=== PATIENT | male | born 1955 | race Caucasian/White ===

== ENCOUNTER 2022-04-06 11:59 | Outpatient (CLI) | payer MEDICARE, OTHER, SELFPAY ==
[2022-04-06 16:46] LABS: TSH With Reflex to FT4* 0.905 uIU/mL (0.270-4.200)
[2022-04-06 17:06] LABS: Vitamin B12* 307 pg/mL (243-894)
== END 2022-04-06 12:00 | disposition home or self-care (01) ==
PROVIDERS: PCP Family Medicine; Visit Provider Physician Assistant Medical
DX: E11.9 Type 2 diabetes mellitus without complications (principal); I10 Essential (primary) hypertension; R53.83 Other fatigue
CPT/HCPCS: 82607; 84443

== ENCOUNTER 2022-10-14 11:33 | Outpatient (CLI) | payer MEDICARE, SELFPAY | END 2022-10-14 11:34 | disposition home or self-care (01) | PROVIDERS: PCP Physician Assistant Medical; Visit Provider Internal Medicine | DX: Z86.010 Personal history of colon polyps (principal); K63.5 Polyp of colon | CPT/HCPCS: 45380; 88305; J2250; J3010 ==

== ENCOUNTER 2022-10-27 13:46 | Outpatient (CLI) | payer MEDICARE, SELFPAY | END 2022-10-27 13:47 | disposition home or self-care (01) | PROVIDERS: PCP Physician Assistant Medical; Visit Provider Physician Assistant Medical | DX: I10 Essential (primary) hypertension (principal); E78.5 Hyperlipidemia, unspecified; E11.9 Type 2 diabetes mellitus without complications; N20.0 Calculus of kidney; R97.20 Elevated prostate specific antigen [PSA] | CPT/HCPCS: 82043; 82570; 82607; 87086 ==

== ENCOUNTER 2023-01-25 16:13 | Outpatient (CLI) | payer MEDICARE, SELFPAY | END 2023-01-25 16:14 | disposition home or self-care (01) | LOC: LKVREF 16:13 | PROVIDERS: PCP Physician Assistant Medical; Visit Provider Physician Assistant Medical | DX: E11.9 Type 2 diabetes mellitus without complications (principal); I10 Essential (primary) hypertension; Z79.899 Other long term (current) drug therapy | CPT/HCPCS: 82306 ==

== ENCOUNTER 2023-03-01 11:56 | Outpatient (CLI) | payer MEDICARE, SELFPAY | END 2023-03-01 11:57 | disposition home or self-care (01) | PROVIDERS: PCP Physician Assistant Medical; Visit Provider Physician Assistant Medical | DX: E78.5 Hyperlipidemia, unspecified (principal); I10 Essential (primary) hypertension; Z12.5 Encounter for screening for malignant neoplasm of prostate | CPT/HCPCS: 80061; 84153 ==

== ENCOUNTER 2023-03-07 12:54 | Outpatient (CLI) | payer MEDICARE, SELFPAY ==
--- NOTE | 2023-03-07 13:00 | CRLHL7_ITS ---
For Patients: As a result of the Century Cures Act, medical imaging exams and procedure reports are released immediately into your electronic medical record. You may view this report before your referring provider. If you have questions, please contact your health care provider. INDICATION: History of smoking TECHNIQUE: Ultrasound aorta with color Doppler analysis. COMPARISON: None FINDINGS: The proximal abdominal aorta measures 2.2 centimeter x 2.6 centimeter, mid aorta measures 1.9 centimeter x 2.0 centimeter, distal aorta measures 1.5 centimeter x 1.8 centimeter, right common iliac artery measures 1.1 centimeter x 1.6 centimeter and the left common iliac artery measures 1.1 centimeter x 1.4 centimeter. There are no periaortic abnormalities evident. IMPRESSION: The proximal abdominal aorta measures up to 2.6 centimeters. Five year follow up recommended. Dictated by Abel Sampson MD @ 03/08/2023 2:22:57 PM (Electronically Signed)
== END 2023-03-07 12:55 | disposition home or self-care (01) ==
LOC: US 12:56
PROVIDERS: PCP Physician Assistant Medical; Visit Provider Physician Assistant Medical
DX: Z87.891 Personal history of nicotine dependence (principal)
CPT/HCPCS: 76706

== ENCOUNTER 2023-04-26 15:03 | Outpatient (CLI) | payer MEDICARE, SELFPAY | END 2023-04-26 15:04 | disposition home or self-care (01) | LOC: LKVREF 15:13 | PROVIDERS: PCP Physician Assistant Medical; Visit Provider Physician Assistant Medical | DX: E11.9 Type 2 diabetes mellitus without complications (principal); E78.5 Hyperlipidemia, unspecified; M10.9 Gout, unspecified | CPT/HCPCS: 83880 ==

== ENCOUNTER 2023-04-28 13:40 | Outpatient (CLI) | payer MEDICARE, SELFPAY ==
--- NOTE | 2023-04-28 14:00 | CRLHL7_ITS ---
For Patients: As a result of the Century Cures Act, medical imaging exams and procedure reports are released immediately into your electronic medical record. You may view this report before your referring provider. If you have questions, please contact your health care provider. INDICATION: Pain and swelling COMPARISON: None. TECHNIQUE: A compression venous ultrasound exam was performed of the left lower extremity using schafer-scale imaging, color Doppler and spectral Doppler analysis. FINDINGS: Sonographic imaging of the left lower extremity demonstrates normal compressibility and color Doppler venous blood flow within the common femoral vein, deep femoral vein, and the proximal greater saphenous vein. Within the thigh, the femoral vein is patent and compressible. At a lower level, the popliteal and posterior tibial veins also show normal compressibility and color Doppler venous blood flow. Limited imaging of the contralateral groin demonstrates a normal spectral waveform and color Doppler venous blood flow within the right common femoral vein. IMPRESSION: Normal venous ultrasound exam. No evidence of deep vein thrombosis within the left lower extremity. Dictated by Abel Rees MD @ 04/28/2023 2:39:08 PM (Electronically Signed)
== END 2023-04-28 13:41 | disposition home or self-care (01) ==
LOC: US 13:41
PROVIDERS: PCP Physician Assistant Medical; Visit Provider Physician Assistant Medical
DX: M79.89 Other specified soft tissue disorders (principal)
CPT/HCPCS: 93970

== ENCOUNTER 2024-01-24 12:11 | Outpatient (CLI) | payer MEDICARE, SELFPAY ==
--- OUTSIDE RECORDS SUMMARY | 2024-01-25 07:50 | XMS_ITS | Clinical Summary ---
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 For routine questions regarding patient records, call [phone] during business hours, M-F 8:00 AM - 5:00 PM Central Time. Record requests for emergency care only can be directed to [phone] at any time.[facility] Allergies Active Allergy Reactions Criticality Noted Date Comments Piperacillin-Tazobactam Hives (Reselect Reaction),Rash 03/16/2017 Medications Medication Sig Dispensed Refills Start Date End Date Status amLODIPine-olmesar manzano (DIVINE) 5-20 mg per tablet Take 1 tablet by mouth daily. 04/08/2023 Active metFORMIN (GLUCOPHAGE) 1,000 mg tablet Take 1,000 mg by mouth 2 (two) times a day with meals. 04/08/2023 Active atorvastatin (LIPITOR) 20 mg tablet Take 20 mg by mouth at bedtime. 03/16/2017 Active metoprolol tartrate (LOPRESSOR) 100 mg tablet Take 100 mg by mouth 2 (two) times a day. 04/12/2023 Active montelukast (SINGULAIR) 10 mg tablet Take 10 mg by mouth at bedtime. 04/08/2023 Active multivitamin tablet Take 1 tablet by mouth every morning. 03/16/2017 Active cetirizine (ZyrTEC) 10 mg tablet Take 10 mg by mouth daily. Active LANCETS MISC Use to test blood sugar 1 times daily or as directed. 03/21/2017 Active blood sugar diagnostic strips (Blood Glucose Test Strips) Use to test blood sugars 1 times daily or as directed 03/21/2017 Active UNABLE TO FIND Use to test blood sugar one times daily or as directed. 03/21/[address] tablet Take 1 tablet (81 mg total) by mouth daily. May resume on MondayNovember 16 12/05/2023 Active acetaminophen (TYLENOL) 500 mg tablet Take 2 tablets (1,000 mg total) by mouth every 6 (six) hours. 80 tablet 1 12/05/2023 Active polyethylene glycol (MIRALAX) 17 gram/dose oral powder Take 17 g by mouth daily. Dissolve each 17 g dose in 240 mL (8 ounces) of beverage. To prevent constipation while on opioids and bladder spasm medications 510 g 12/05/2023 Active Additional Information Patient not taking.Reported on 12/12/2023 sennosides-docusat e sodium (Senna with Docusate Sodium) 8.6-50 mg per tablet Take 1 tablet by mouth 2 (two) times a day. To prevent constipation, while on opioids and bladder spasm medications 30 tablet 1 12/05/2023 Active traMADoL (ULTRAM) 50 mg tabletIndications: Acute Pain Take 1 tablet (50 mg total) by mouth every 6 (six) hours as needed for severe pain or score 7-10 of 10 (for pain not relieved by acetaminophen) 10 tablet 12/05/2023 Active Additional Information Patient not taking.Reported on 12/12/2023 bacitracin 500 unit/gram ointment Apply 1 Application topically 2 (two) times a day. Apply to the head of the penis while catheter is in place. 30 g 12/05/2023 Active cefdinir (OMNICEF) 300 mg capsuleIndications :Primary Malignant Neoplasm Of Prostate (HCC) Take 1 capsule (300 mg total) by mouth 2 (two) times a day before breakfast and dinner. Take 1 capsule (300 mg total) by mouth 2 (two) times a day before breakfast and dinner for 1 day on the day of catheter removal (one capsule in the am prior to removal and one tablet in the pm after removal). 2 capsule 12/12/2023 Active tadalafiL (Cialis) 5 mg tablet Take 1 tablet (5 mg total) by mouth daily. Can take up to 20mg in 24 hrs. Take 1 hour before sexual activity. 90 tablet 11 12/21/2023 Active Active Problems Problem Noted Date Diagnosed Date Personal History Of Infectio us And Parasitic Disease (COVID-19) 11/30/2023 Smoking Tobacco Use Personal History 11/30/2023 Overweight Body Mass Index 25-29.9 Adult 024 Hernia Inguinal Bilateral 11/30/2023 Primary Malignant Neoplasm Of Prostate Cancer Staging:Clinical stage from 09/19/2023:Stage IIB(cT1c, cN0, cM0, PSA: 5.9, Grade Group: 2) - Signed by Mohsen Bright APRN, C.N.P., D.N.P. 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 12/21/2023 Orders Only Department of Urology in [place], [place] [address] [place] [phone] Lena Rojas, R.N. 12/19/2023 8:00 AM CDT Procedure visit Department of Urology in [place], [place] [address] [place] [phone] Fidel Schmid M.D. Isabel Flanagan, R.N. Primary Malignant Neoplasm Of Prostate (HCC) 12/15/2023 Clinical Communication Department of Urology in [place], [place] [address] [place] [address] Bobby Tomlinson M.D. 12/12/2023 8:00 AM CDT Procedure visit Department of Urology in [place], [place] [address] [place] [phone] Heber Sebastian M.D. Gehling, Kelly C, RBlanca Primary Malignant Neoplasm Of Prostate (HCC) 12/07/2023 Documentation Department of Urology in [place], [place] [address] [place] [phone] Bobby Tomlinson M.D. 12/04/2023 1:28 PM CDT Anesthesia Event [facility] [address] [place] [address] Rayo Davis M.D. Wetzel, David R, M.D. 12/04/2023 1:17 PM CDT - 12/04/2023 6:43 PM CDT Surgery [facility] OR [address] [place] [address] Bobby Tomlinson M.D. ROBOTIC-ASSISTED RADICAL PROSTATECTOMY. 12/04/2023 10:06 AM CDT - 12/05/2023 11:53 AM CDT Hospital [facility], [facility], Fifth Floor [address] [place] [address] Bobby Tomlinson M.D. Primary Malignant Neoplasm Of Prostate (HCC) (Primary Dx) Discharge Disposition: Home or Self Care 11/30/2023 1:00 PM CDT Office Visit Department of Urology in [place], [place] [address] [place] [phone] Bobby Tomlinson M.D. Primary Malignant Neoplasm Of Prostate (HCC) (Primary Dx) 11/30/2023 9:00 AM CDT Education Department of Patient Education in [place], [place] [address] [place] [phone] Bobby Tomlinson M.D. Johnson, Kinsley E RBlanca Primary Malignant Neoplasm Of Prostate (HCC) 11/30/2023 7:30 AM CDT Comprehensive Visit Preoperative Evaluation Center in [place], [place] [address] [place] [phone] Bobby Tomlinson M.D. Pauly, Jacob J, APRN, C.N.P., M.S. Preanesthetic Medical Exam (Primary Dx); Primary Malignant Neoplasm Of Prostate (HCC); Hypertension Essential Primary; Hyperlipidemia; Sleep Apnea; Chronic Obstructive Pulmonary Disease (HCC); Smoking Tobacco Use Personal History; Personal History Of Infectious And Parasitic Disease (COVID-19); Diabetes Mellitus Type 2 With Diabetic Neuropathy (HCC); Restless Leg Syndrome; Overweight Body Mass Index 25-29.9 Adult; Hernia Inguinal Bilateral 11/30/2023 6:36 AM CDT - 11/30/2023 11:59 PM CDT Hospital Encounter Department of Laboratory Medicine and Pathology, [facility] in [place] [phone] Bobby Tomlinson M.D. Primary Malignant Neoplasm Of Prostate (HCC) Discharge Disposition: Home or Self Care 11/28/2023 1:15 PM CDT Clinical Communication Virtual Review in [place], [place] [address] [place] [phone] Pre-visit Intake 11/13/2023 Orders Only Department of Urology in [place], [place] [address] [place] [phone] Desean Perales MPAS, P.A.-C. 11/13/2023 Clinical Communication Department of Urology in [address] [phone] Desean Perales MPAS, P.A.-C. Med Question 11/06/2023 Orders Only Preoperative Evaluation Center in [place], [place] [address] [place] [phone] Milka Badillo APRN, C.N.P., M.S.N. Preanesthetic Medical Exam (Primary Dx) 11/03/2023 Clinical Communication Department of Urology in [place], [place] [address] [place] [phone] Bobby Tomlinson M.D. 10/31/2023 2:35 PM CDT - 10/31/2023 3:46 PM CDT Hospital Encounter Department of Radiation Oncology in [place], [place] [address] [place] [address] Desean Perales, [facility], P.A.-C. Ozzy Manzano M.D. Primary Malignant Neoplasm Of Prostate (HCC) (Primary Dx) 10/31/2023 1:30 PM CDT Comprehensive Visit Department of Urology in [place], [place] [address] [place] [address] Bobby Tomlinson M.D. Primary Malignant Neoplasm Of Prostate (HCC) from Last 3 Months Social History Tobacco Use Types Packs/Day Years Used Date Smoking Tobacco: Former Cigarettes 2 30 Passive Smoke Exposure: Past Smokeless Tobacco: Never Tobacco Cessation:Counseling Given: Not Answered Passive Exposure Comments:parents did smoke when he was growing up. Alcohol Use Standard Drinks/Week Comments Not Currently 0 (1 standard drink = 0.6 oz pur e alcohol) [facility] [employer] Answer Date Recorded In the past [address] [facility] [employer], gas, oil, or water [employer] threatened to shut off services in your home? No 12/04/2023 Humiliation, Afraid, Rape, and Kick questionnair e Answer Date Recorded Within the last year, have y ou been afraid of your partner or ex-partner? No 12/04/2023 Within the last year, have y ou been humiliated or emotionally abused in other ways by your partner or ex-partner? No Within the last year, have y ou been kicked, hit, slapped, or otherwise physically hurt by your partner or ex-partner? No 12/04/2023 Within the last year, have y ou been raped or forced to have any kind of sexual activity by your partner or ex-partner? No 12/04/2023 Hunger Vital Sign Answer Date Recorded Within the past 12 months, y ou worried that your food would run out before you got the money to buy more. Never true 12/04/19 24 Within the past 12 months, t he food you bought just didn't last and you didn't have money to get more. Never true 12/04/2023 PRAPARE - Transportation Answer Date Re corded In the past 12 months, has l ack of transportation kept you from medical appointments or from getting medications? No 11/15 In the past 12 months, has l ack of transportation kept you from meetings, work, or from getting things needed for daily living? No 12/04/2023 Nutrition Answer Date Recorded Nutrition: EVOO Fat Source 13 04/18 Nutrition: Servings of Fruits/Vegetables per Day Not on file 04/18/2020 Dental Answer Date Recorded Dental: Regular Dentist Unknown 06/29/20 23 Housing Stability Answer Date Recorded What is your living situation today? I have a [facility] place to live 12/04/2023 Sex and Gender Information Value Date Recorded Sex Assigned at Not on file Gender Identity Not on file Sexual Orientation Not on file Last Filed Vital Signs Vital Sign Reading Time Taken Comments Blood Pressure 99/67 12/05/2023 11:00 AM CDT Pulse 66 12/05/2023 11:00 AM CDT Temperature 36.5 ??C (97.7 ??F) 12/05/2023 11:00 AM C DT Respiratory Rate 16 12/05/2023 11:00 AM CDT Oxygen Saturation 92% 12/05/2023 11:00 AM CDT Inhaled Oxygen Concentration - - Weight 96 kg (211 lb 10.3 oz) 12/04/2023 10:30 A M CDT Height 177.5 cm (5' 9.88) 12/04/2023 10:30 AM C DT Body Mass Index 30.47 12/04/2023 10:30 AM CDT Plan of Treatment Health Maintenance Due Date Last Done Comments Diabetic Office Visit with F oot Exam 1955 Dilated Eye Exam 1955 Hepatitis C Screening 1955 Urine Albumin 1955 Zoster Vaccines (1 of 2) 01/13/2006 Hepatitis B Vaccines (1 of 3 - Risk 3-dose series) 2016 COVID-19 Vaccine (4 - 2022-2 4 season) 2023 05/26/2022, 10/30/2020, 10/02/2020 Pneumococcal vaccine (65+ ye ars) (3 of 3 - PPSV23 or PCV20) 05/28/2023 04/16/2021, 05/28/2018, 05/25/2016, Additional history exists Depression Screening (Annual PHQ-2) 07/17/2023 Influenza Vaccine (#1) 2024 , 04/26/2023, 04/24/2022, Additional history exists Hemoglobin A1C 06/01/2024 11/30/2023, 03/16/2017 Creatinine Level (Kidney Fun ction Test) 11/29/2024 11/30/2023, 07/04/2023, 09/07/2015, Additional history exists Office Visit for Blood Press ure Check / Re-check 11/29/2024 11/30/2023 Potassium Level 11/29/2024 11/30/2023, 06/16, 09/07/2015, Additional history exists Sodium Level 11/29/2024 11/30/2023, 06/16, 09/07/2015, Additional history exists DTaP,Tdap,and Td Vaccines (4 - Td or Tdap) 09/14/2025 09/15/2015, 05/06/2011, 04/26/2010 Lipid (Cholesterol) Screening 07/04/2028 07/04/2023 Abdominal Aortic Aneurysm (A AA) Screen Completed 04/14/2015 Fall Risk Screen (Annual) Completed 12/04/2023 Medical Devices Implanted Type Area Topographical Engineer Device Identifier Shelf Expiration Date Model / Serial / Lot Yolanda Hill Lg - [id number] Implanted:Qty: 1 on 12/04/2023 by Bobby Tomlinson M.D. at [facility] Hardware e.g. pins/screws /rods Teleflex Skydeck [id number] 04/25/2028 [id number] / / [id number] Yolanda Hill Md - [id number] Implanted:Qty: 1 on 12/04/2023 by Bobby Tomlinson M.D. at [facility] Hardware e.g. pins/screws /rods Teleflex Skydeck 07/25/2028 [id number] / / [id number] Yolanda Hill Md - [id number] Implanted:Qty: 1 on 12/04/2023 by Bobby Tomlinson M.D. at [facility] Hardware e.g. pins/screws /rods [employer] [id number] / / [id number] Clp Hmol Plmr Lg - [id number] Implanted:Qty: 1 on 12/04/2023 by Bobby Tomlinson M.D. at [facility] Hardware e.g. pins/screws /rods [employer] [id number] 06/15/2028 [id number] / / [id number] Clp Hmol Plmr Md - [id number] Implanted:Qty: 1 on 12/04/2023 by Bobby Tomlinson M.D. at [facility] Hardware e.g. pins/screws /rods [employer] [id number] / / [id number] Clp Hmol Plmr Md - [id number] Implanted:Qty: 1 on 12/04/2023 by Bobby Tomlinson M.D. at [facility] Hardware e.g. pins/screws /rods [employer] [id number] / / [id number] Clp Hmol Plmr Lg - [id number] Implanted:Qty: 1 on 12/04/2023 by Bobby Tomlinson M.D. at [facility] Hardware e.g. pins/screws /rods [employer] [id number] 06/15/2028 [id number] / / [id number] Conversions - Default Historical Implant Device Implanted:05/12 (Quantity not on file) Ocular Lens Left: Eye Description:Body Location - Eye L. Device Status Text - OculrLens. Conversions - Default Historical Implant Device Implanted:05/12 (Quantity not on file) Ocular Lens Right: Eye Description:Body Location - Eye R. Device Status Text - OculrLens. Stent Inlay 7fr X 26cm - [id number] Implanted:Qty: 1 on 05/12/2015 Ureteral Stent C.R.Bard Description:Device Manufactu [facility] Patient Care Division. Device Status Text - [id number]. Stent Inlay 7fr X 26cm - Reece [id number] Implanted:Qty: 1 on 05/28/2015 Ureteral Stent C.R.Bard Description:Device Manufactu [facility] Patient Care Division. Device Status Text - [id number]. Stent Inlay 8fr X 30cm - Reece [id number] Implanted:Qty: 1 on 06/03/2016 Ureteral Stent C.R.Bard Description:Device Manufactu rer - [facility] Patient Care Division. Device Status Text - [id number]. Explanted Type Area Topographical Engineer Device Identifier Shelf Expiration Date Model / Serial / Lot Conversions - Default Historical Implant Device - Reece [id number] Explanted:2016 (Quantity not on file) Ureteral Stent Description:Device Status Te xt - [id number]. Conversions - Default Historical Implant Device - Reece [id number] Explanted:2016 (Quantity not on file) Ureteral Stent Description:Device Status Juan Alberto garcia - [id number]. Procedures Procedure Name Priority Date/Time Associated Diagnosis Comments GLUCOSE POCT, B Routine 12/05/2023 7:15 AM CDT GLUCOSE POCT, B Routine 12/04/2023 7:53 PM CDT ADULT OXYGEN THERAPY Routine 12/04/2023 7:39 PM CDT ADULT OXYGEN THERAPY Routine 12/04/2023 7:39 PM CDT POST-OP GLYCEMIC MANAGEMENT ORDER SET TRIGGER Routine 12/04/2023 7:39 PM CDT REMOTE OXIMETRY MONITORING CONT. Routine 12/04/2023 7:39 PM CDT REMOTE OXIMETRY MONITORING CONT. Routine 12/04/2023 7:39 PM CDT REMOTE OXIMETRY MONITORING CONT. Routine 12/04/2023 7:39 PM CDT GLUCOSE POCT, B Routine 12/04/2023 7:00 PM CDT GLUCOSE POCT, B Routine 12/04/2023 5:00 PM CDT SURGICAL PATHOLOGY, [facility] Routine 12/04/2023 3:55 PM CDT Primary Malignant Neoplasm Of Prostate (HCC) GLUCOSE POCT, B Routine 12/04/2023 2:56 PM CDT LDA ANE ENDOTRACHEAL AIRWAY Routine 12/04/2023 1:38 PM CDT ROBOTIC-ASSISTED RADICAL PROSTATECTOMY 12/04/2023 12:58 PM CDT Primary Malignant Neoplasm Of Prostate (HCC) GLUCOSE POCT, B Routine 12/04/2023 12:38 PM CDT GLUCOSE POCT, B Routine 12/04/2023 10:34 AM CDT ECG Routine 11/30/2023 11:37 AM CDT Preanesthetic Medical Exam HEMOGLOBIN A1C, B Routine 11/30/2023 6:5 1 AM CDT Primary Malignant Neoplasm Of Prostate (HCC) PROTHROMBIN TIME (PT), P Routine 11/30/2023 6:51 AM CDT Primary Malignant Neoplasm Of Prostate (HCC) CBC WITHOUT DIFFERENTIAL, B Routine 11/30/2023 6:51 AM CDT Primary Malignant Neoplasm Of Prostate (HCC) BASIC METABOLIC PANEL, S/P Routine 11/30/2023 6:51 AM CDT Primary Malignant Neoplasm Of Prostate (HCC) ACTIVATED PARTIAL THROMBOPLASTIN TIME (APTT), P Routine 11/30/2023 6:51 AM CDT Primary Malignant Neoplasm Of Prostate (HCC) EXTI LIPID PANEL W REFLEX MEASURED LDL Routine 07/04/2023 1:45 PM HYDRAULIC MINER BLASTING CT ABDOMEN PELVIS WITHOUT IV CONTRAST RAD - Routine (most inpatients and all outpatients) 04/14/2015 4:38 PM CDT from Last 3 Months or Most Recently Relevant to Health Maintenance Results * (ABNORMAL) Glucose, POCT (12/05/2023 7:15 AM CDT) Only the most recent of7 resultswithin the time period is included. Glucose, POCT, B 173(H) 70 - 140 mg/dL 12/05/2023 7:24 AM CDT PCDE Site Capillary 12/05/2023 7:24 AM CDT PCDE Blood 12/05/2023 7:15 AM CDT 12/05/2023 7:25 AM CDT Unknown Provider LAB POCT ORDERABLES- MANUAL POC [employer] [facility] [address] [place] [address], [place] PCDE [facility] [place] POC [address] [place] [address] * Surgical Pathology, [facility] (12/04/2023 3:55 PM CDT) 12/07/2023 5:43 PM CDT [facility] Participated in the Interpretation Saul Dillon M.D.-Pathology Resident 12/07/2023 5:43 PM CDT [facility] Report electronically signed by Ayush Karimi M.D. I verify that I have examined all relevant slides/materials for the specimen(s) and rendered or confirmed the diagnosis. 12/07/2023 5:43 PM CDT [facility] Gross Description A. ??Received fresh labeled periprostatic lymph nodes is a 3.7 x 2.5 x 1.7 cm aggregate of adipose tissue, lymphatic tissue not identified grossly. ??All submitted for permanent sections. ??Grossed by [place] B. ??Received fresh and placed in formalin labeled prostate is a 52.6 gram, 4.8 (S-I) x 3.6 (A-P) x 4.5 (R-L) cm radical prostatectomy, with nodular hypertrophy. The specimen is inked and the prostatic apex and bladder neck margins are submitted perpendicularly. ??Grossly, there is a 1.4 x 1.2 x 0.8 cm white mass involving the right mid, anterior prostate. ??Senior Water Resources Engineer tissue submitted for permanent sections. ??Grossed by [place]([facility] 12/07/2023 5:43 PM CDT [facility] Block Summary A Marilee-prostatic lymph nodes A1 Fat 1 A2 Fat 2 A3 Fat 3 B Prostate B1 Right anterior apex margin B2 Right posterior apex margin B3 Right bladder neck margin- 1 B4 Right bladder neck margin- 2 B5 Right bladder neck margin- 3 B6 Left anterior apex margin B7 Left posterior apex margin B8 Left bladder neck margin- 1 B9 Left bladder neck margin- 2 B10 Left bladder neck margin- 3 B11 Right inferior posterior B12 Right mid posterior B13 Right mid anterior B14 Right superior posterior B15 Left inferior posterior B16 Left mid posterior B17 Left mid anterior B18 Left superior posterior B19 Right seminal vesicles- 1 B20 Right seminal vesicles- 2 B21 Right seminal vesicles- 3 B22 Right seminal vesicles- 4 B23 Right seminal vesicles- 5 B24 Right seminal vesicles- 6 B25 Right seminal vesicles- 7 B26 Left seminal vesicles- 1 B27 Left seminal vesicles- 2 B28 Left seminal vesicles- 3 B29 Left seminal vesicles- 4 B30 Left seminal vesicles- 5 B31 Left seminal vesicles- 6 12/07/2023 5:43 PM CDT [facility] Interpretation FINAL DIAGNOSIS A. ??Lymph nodes, periprostatic, dissection: ??Benign fibroadipose tissue. ??No lymphoid tissue identified. B. ??Prostate, radical prostatectomy: ??Prostatic adenocarcinoma (Davy score 3+4=7; Grade group 2) is identified forming a dominant 1.4 x 1.2 x 0.8 cm mass within the right anterior prostate. ??The tumor is confined to the prostrate without involvement of the extraprostatic soft tissues or seminal vesicles. ??All surgical margins are negative for tumor. ??See synoptic report. SYNOPTIC REPORT: Prostate Procedure: Radical prostatectomy Prostate Size: 52.6 gram, 4.8 (S-I) x 3.6 (A-P) x 4.5 (R-L) cm Histologic Type: Acinar adenocarcinoma Histologic Grade ?? Grade Group and Davy Score ?Grade Group ?Grade Group 2 (Davy Score 3+4=7) ?Minor Tertiary Pattern 5 (less than 5%): ?Not applicable ?Percentage of Pattern 4 in Davy score 7: Less than 10% ?? Intraductal Carcinoma (IDC): Not identified ?? Cribriform Glands: Not identified Treatment Effect: No known presurgical therapy Tumor Quantitation ?? Estimated Percentage of Prostate Involved by Tumor: 10-20% ?? Greatest Dimension of Dominant Nodule: 1.4 x 1.2 x 0.8 cm ?? Location of Dominant Nodule: Right anterior prostate Extraprostatic Extension: Not identified Urinary Bladder Neck Invasion: Not identified Seminal Vesicle Invasion: Not identified Lymphovascular Invasion: Not identified Margins: All margins negative for tumor Regional Lymph Nodes Status: Not applicable (no regional lymph nodes submitted or found) Distant Metastasis. ??Distant Site(s) Involved: Not applicable Pathologic Staging (AJCC, 8th edition) TNM Descriptors: m pT Category: pT2 pN Category: pN not assigned (no nodes submitted or found) pM Category: Not applicable - pM cannot be determined from the submitted specimens Additional Pathologic Findings: Nodular hyperplasia Best Tumor Block for Ancillary Testing: B13 The synoptic report incorporates information from all relevant surgical material and includes all required data elements of the current CAP Cancer Protocol. 12/07/2023 5:43 PM CDT [facility] Tissue (Lymph Node) 12/04/2023 3:55 PM CDT Tissue (Prostate) 12/04/2023 3:57 PM CDT Bobby Tomlinson M.D. LAB SURG PATH ORDERA BLES Performing Organization Address City/State/[facility] Co de Phone Number [facility] [address] [place] [address], [facility] [address] [place] [address] * LDA ANE ENDOTRACHEAL AIRWAY (12/04/2023 1:38 PM CDT) Narrative Rob Robertson APRN, CRNA - 12/04/2023 1:38 PM CDT Rob Robertson APRN, CRNA ? 12/04/2023 ??1:49 PM Airway Date/Time: 12/04/2023 1:38 PM Performed by: Rob Robertson APRN, CRNA Authorized by: Abel Wilkins M.D. ?? Patient location during procedure: OR / Procedure Area PROCEDURE DETAILS: Mask difficulty assessment: easy mask Final airway type: video laryngoscope Laryngeal Manipulation: no ?? Final best view of glottic structures - Cormack/Lehane Score: grade 2A ETT location: oral VL device: glide scope [place] scope blade size: 4 Tube size: 7.5 ETT distance at teeth/gum: 23 Oral tube type: standard ETT Cuffed: yes Leak Test Performed: no ?? Number of attempt to successful placement: 1 Airway confirmation: bilateral breath sounds, positive ETCO2 and bilateral chest rise Other previous techniques attempted: none PRE PROCEDURE DETAILS: Pre evaluation for airway management: procedure Urgency: elective Preop assessment of probable difficulty: questionable / suspicious difficult airway Preoxygenation: bag valve mask SEDATION / ANESTHESIA Anesthesia method: anesthesia POST PROCEDURE DETAILS: ? Procedure outcome: successful ?? Notable Events: no complications Abel Wilkins M.D. ANESTHESIA ORDERABLE S * ECG 12 Lead (11/30/2023 11:37 AM CDT) Ventricular Rate ECG/Min 71 BPM MUSE ID Interval 156 ms MUSE QRSD Interval 132 ms MUSE QT Interval 418 ms MUSE QTC Interval 454 ms MUSE P [place] 79 degrees MUSE R [place] -79 degrees MUSE T Wave [place] 29 degrees MUSE 11/30/2023 11:3 7 AM CDT 11/30/2023 11:44 AM CDT Impressions MUSE - 11/30/2023 11:44 AM CDT Normal sinus rhythm Right bundle branch block Left anterior fascicular block Bifascicular block When compared with ECG of 02-Jun-2016 08:00, Right bundle branch block is now present Reviewed by PAULINE Clancy Narrative Procedure Note Ryan Jesus M.D. - 11/30/2023 IMPRESSION: Normal sinus rhythm Right bundle branch block Left anterior fascicular block Bifascicular block When compared with ECG of 02-Jun-2016 08:00, Right bundle branch block is now present Reviewed by PAULINE Clancy Milka Badillo APRN, C.N.P., M.S.N. EC G ORDERABLES MUSE NA * APTT (Activated Partial Thromboplastin Time) (11/30/2023 6:51 AM CDT) Activated Partial Thrombopl Time, P 36 25 - 37 sec 11/30/2023 7:34 AM CDT DTL Blood (Blood, Venous) 11/30/2023 6:51 AM CDT 11/30/2023 7:15 AM CDT Bobby Tomlinson M.D. LAB BLOOD ADD-ON Performing Organization Address City/[facility] Co de Phone Number [facility] [address] [place] [address], [facility] [address] [place] [address] * Prothrombin Time (PT) (11/30/2023 6:51 AM CDT) Prothrombin Time, P 10.6 9.4 - 12.5 sec 11/30/2023 7:34 AM CDT DTL INR 1.0 0.9 - 1.1 11/30/2023 7:34 AM CDT DTL Comment: ----ADDITIONAL INFORMATION---- Standard intensity warfarin therapeutic range: 2.0 to 3.0 ?? High intensity warfarin therapeutic range: 2.5 to 3.5 Blood (Blood, Venous) 11/30/2023 6:51 AM CDT 11/30/2023 7:15 AM CDT Bobby Tomlinson M.D. LAB BLOOD ADD-ON Performing Organization Address City/[facility] Co de Phone Number [facility] [address] [place] [address], [facility] [address] [place] [address] * CBC without Differential (11/30/2023 6:51 AM CDT) Hemoglobin 14.5 13.2 - 16.6 g/dL 11/30/2023 7:30 AM CDT DTL Hematocrit 43.1 38.3 - 48.6 % 11/30/2023 7:30 AM CDT DTL Erythrocytes 4.58 4.35 - 5.65 x10(12)/L 11/30/2023 7:30 AM CDT DTL MCV 94.1 78.2 - 97.9 fL 11/30/2023 7:30 AM CDT DTL RBC Distrib Width 13.1 11.8 - 14.5 % 11/30/2023 7:30 AM CDT DTL Platelet Count 194 135 - 317 x10(9)/L 11/30/2023 7:30 AM CDT DTL Leukocytes 8.3 3.4 - 9.6 x10(9)/L 11/30/2023 7:30 AM CDT DTL Blood (Blood, Venous) 11/30/2023 6:51 AM CDT 11/30/2023 7:15 AM CDT Bobby Tomlinson M.D. LAB BLOOD ADD-ON Performing Organization Address City/[facility] Co de Phone Number [facility] [address] [place], [place] [phone] [place] [address] [place] [address] * (ABNORMAL) Hemoglobin A1c (11/30/2023 6:51 AM CDT) Hemoglobin A1c, B 7.6(H) 4.0 - 5.6 % 11/30/2023 7:44 AM CDT DTL Comment: Hemoglobin A1c values greater than or equal to 6.5 percent are diagnostic for diabetes mellitus. ??Diagnosis should be confirmed by repeat testing. ??In diabetic patients, HbA1c goals should be discussed with healthcare provider. Blood (Blood, Venous) 11/30/2023 6:51 AM CDT 11/30/2023 7:15 AM CDT Bobby Tomlinson M.D. LAB BLOOD ADD-ON [facility] [address] [place], [place] [phone] [place] [address] [place] [address] * (ABNORMAL) Basic Metabolic Panel (11/30/2023 6:51 AM CDT) Potassium, S 4.9 3.6 - 5.2 mmol/L 11/30/2023 7:49 AM CDT DTL Sodium, S 142 135 - 145 mmol/L 11/30/2023 7:49 AM CDT DTL Chloride, S 103 98 - 107 mmol/L 11/30/2023 7:49 AM CDT DTL Bicarbonate, S 29 22 - 29 mmol/L 11/30/2023 7:49 AM CDT DTL Anion Gap 10 7 - 15 11/30/2023 7:49 AM CDT DTL BUN (Blood Urea Nitrogen), S 16 8 - 24 mg/dL 11/30/2023 7:49 AM CDT DTL Creatinine 1.20 0.74 - 1.35 mg/dL 11/30/2023 7:49 AM CDT DTL Estimated GFR (eGFR) 66 >=60 mL/min/BSA 11/30/2023 7:49 AM CDT DTL Comment: Estimated GFR calculated using the 2020 CKD_EPI creatinine equation. Calcium, Total, S 9.7 8.8 - 10.2 mg/dL 11/30/2023 7:49 AM CDT DTL Glucose, S 153(H) 70 - 140 mg/dL 11/30/2023 7:49 AM CDT DTL Blood (Blood, Venous) 11/30/2023 6:51 AM CDT 11/30/2023 7:30 AM CDT Bobby Tomlinson M.D. LAB BLOOD ADD-ON [facility] [address] [place] [address], [facility] [address] [place] [address] from Last 3 Months or Most Recently Relevant to Health Maintenance Advance Directives For more information, please contact: [phone] * Full Code (Latest Code Status on File) Date Activated Date Inactivated Comments 12/04/2023 7:39 PM 12/05/2023 2:03 PM Question Answer Comments Full Code: Discussed * Full Code Date Activated Date Inactivated Comments 12/04/2023 10:21 AM 12/04/2023 7:39 PM Question Answer Comments Full Code: Discussed
--- OUTSIDE RECORDS SUMMARY | 2024-01-25 07:51 | XMS_ITS | Encounter Summary ---
Author Organization [facility] Address [address] [place] [phone] Care Team Providers Care Continuous Improvement Consultant Name Role Phone Unavailable Primary Care Provider Unavailabl e Reason for Visit * Outpatient (Routine) - Closed Specialty Diagnoses / Procedures Referred By Hector rivera Referred To Contact Anesthesiology Diagnoses Primary Malignant Neoplasm Of Prostate (HCC) Bobby Tomlinson M.D. [address] [place] [phone] [facility] Referral ID Status Reason Start Date Expiration Date Visits Re quested Visits Authorized [id number] Closed 11/06/2023 05/07/2025 1 1 Encounter Details Date Type Department Care Team (Latest Contact Info) Description 11/30/2023 7:30 AM CDT Comprehensive Visit Preoperative Evaluation Center in [place], [place] [address] [place] [phone] Bobby Tomlinson M.D. [address] [place] [address] [phone] Ryan Ashley, CADEN, C.N.P., M.S. [address] [place] [address] [phone] Preanesthetic Medical Exam (Primary Dx); Primary Malignant Neoplasm Of Prostate (HCC); Hypertension Essential Primary; Hyperlipidemia; Sleep Apnea; Chronic Obstructive Pulmonary Disease (HCC); Smoking Tobacco Use Personal History; Personal History Of Infectious And Parasitic Disease (COVID-19); Diabetes Mellitus Type 2 With Diabetic Neuropathy (HCC); Restless Leg Syndrome; Overweight Body Mass Index 25-29.9 Adult; Hernia Inguinal Bilateral Social History Tobacco Use Types Packs/Day Years Used Date Smoking Tobacco: Former Cigarettes 2 30 Passive Smoke Exposure: Past Smokeless Tobacco: Never Passive Exposure Comments:tony scott did smoke when he was growing up. Alcohol Use Standard Drinks/Week Comments Not Currently 0 (1 standard drink = 0.6 oz pur e alcohol) Nutrition Answer Date Recorded Nutrition: EVOO Fat Source 13 04/18 Nutrition: Servings of Fruits/Vegetables per Day Not on file 04/18/2020 Dental Answer Date Recorded Dental: Regular Dentist Unknown 06/29/20 Sex and Gender Information Value Date Recorded Sex Assigned at Not on file Gender Identity Not on file Sexual Orientation Not on file documented as of this encounter Last Filed Vital Signs Vital Sign Reading Time Taken Comments Blood Pressure 133/83 11/30/2023 7:23 AM CDT Pulse 71 11/30/2023 7:23 AM CDT Temperature 35.7 ??C (96.3 ??F) 11/30/2023 7:20 AM CD T Respiratory Rate - - Oxygen Saturation 97% 11/30/2023 7:23 AM CDT Inhaled Oxygen Concentration - - Weight 98.9 kg (218 lb 0.6 oz) 11/30/2023 7:20 A M CDT Height 183.5 cm (6' 0.24) 11/30/2023 7:20 AM CD T Body Mass Index 29.37 11/30/2023 7:20 AM CDT documented in this encounter H&P Notes * Ryan Ashley, MEDICAL DIRECTOR OCCUPATIONAL HEALTH, C.N.P., M.S. - 11/30/2023 7:30 AM CDT REASON FOR VISIT: Preoperative Medical Evaluation REFERRING PHYSICIAN: Bobby Tomlinson M.D. 12/04/2023: ROBOTIC-ASSISTED RADICAL PROSTATECTOMY; Bobby Tomlinson M.D. Surgery Specific Risk Classification: Elevated Risk SUBJECTIVE HISTORY OF PRESENT ILLNESS Matt Barney is a 68 y.o. male who is here for preanesthetic medical examination prior to the planned procedure as listed above. REVIEW OF SYSTEMS Eyes: - Glasses. All other systems reviewed and are negative. Cardiac Risk Scoring: Adams Cardiac Score: 0.06% RCRI Point Count: 1 RCRI Score: 0.9% DASI Calculations Flowsheet Row Comprehensive Visit from 11/30/2023 in Preoperative Evaluation Center in [place], [place] DASI Total Score 44.7 Estimated V02 Peak 28.82 Estimated MET Level 8.23 OBJECTIVE OBJECTIVE PHYSICAL EXAMINATION General/Constitutional Constitutional Assessment: Overweight General State of Health: Healthy appearing Airway (HEENT) Mallampati: III TM Distance: >3 FB Neck ROM: Full Mouth Opening: > 3 cm Upper Lip Bite Test: I Dental Assessment: Dentition intact Cardiovascular Rhythm: Regular Rate: Normal Cardiovascular Assessment: Normal Pulmonary Pulmonary Assessment: Clear Neurological Neurologic Assessment: Alert and oriented X 3 Musculoskeletal MSK Assessment: Normal Gait: Normal Ambulate with: None Psychiatric Psychiatric Assessment: Calm Dermatology Skin Assessment: normal ASSESSMENT / PLAN Anesthesia: Patient denies all other personal/family previous anesthesia related complications. Please see allergy history. (piperacillin tazobactam sensitivity) Airway Hx: No chart review airway. Lab: - 11/30/2023 HGB 14.5, HCT 43.1, PLT 194, WBC 8.3, CR 1.20/GFR 66, BUN 16, Na 142, K 4.9, total calcium 9.7, glucose 153, A1c 7.6%, PT 10.6/INR 1.0, APTT 36. ECG: - 11/30/2023 normal sinus rhythm 71 bpm, RBBB, LAFB, bifascicular block, comparison ECG 06/02/2016 RBBB now present, AI dashboard indicates 8.80% atrial fib probability. ECHO: Not indicated or chart review discovered. #1 Preanesthetic Medical Exam #2 Primary Malignant Neoplasm Of Prostate (HCC) Kind hearted 68-year-old gentleman here with for EVER visit. Active individual. Able to care for self at home. No ambulation aids. Mets 8.23. Denies cardiopulmonary symptoms both at rest and withexertional activity. On exam today denies any fever/chills, cough, nasal drainage, or sinus pressure. 1-2 12 oz mountain dews daily without withdrawal headaches. No significant alcohol history. Please see planned procedure and HPI above. Please hold all ibuprofen, aspirin, supplements, minerals, and vitamins 1 week prior to surgery. #3 Hypertension Essential Primary Treated 10+ years with no acute cardiopulmonary/angina symptoms on exam. 11/30/2023 CR 1.20/GFR 66,lytes normal. No cardiac ischemia/infarction/surgical/arrhythmic history. No thromboembolism history. Pulse 71. BP 133/83. Home BP 130/70s. Please see cardiac testing above. Metoprolol tartrate will continue as prescribed. Amlodipine olmesartan will be held morning of surgery. #4 Hyperlipidemia Treated with no TIA/stroke history. CT urogram 05/06/2015 indicates mild fatty infiltration of the liver. No chart review LFTs. Atorvastatin will continue as prescribed. #5 Sleep Apnea CPAP compliant. Instructed bring CPAP to surgery. #6 Chronic Obstructive Pulmonary Disease (HCC) Conservatively managed with no recent exacerbation. Chart review PFTs/lung cancer surveillance imaging reported normal last year (outside facility no records). 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 No recent lung imaging. No current inhalers. Continue COPD surveillance/treatment per primary care provider. #7 Smoking Tobacco Use Personal History 35 pack year smoking history with chronic bronchitis. No recent bronchitis in the last 3 to 5 years. Continue lung cancer screening surveillance/treatment per primary care provider. #8 Personal History Of Infectious And Parasitic Disease (COVID-19) COVID history x2 (). No hospitalization/treatment/O2 history. Fully recovered without residual affects. #9 Diabetes Mellitus Type 2 With Diabetic Neuropathy (HCC) Treated with bilateral foot neuropathy. 11/30/2023 A1c 7.6%. No hospitalized hypo/hyperglycemic episodes. Continue surveillance/treatment per primary care provider. Metformin will be held evening before and morning of surgery. #10 Hernia Inguinal Bilateral No significant groin pain. MR prostate imaging 09/11/2023 indicates bilateral fat containing inguinal hernias. Continue inguinal hernia surveillance/treatment per primary care provider. #11 Restless Leg Syndrome Conservatively managed with no concern. Obstructive sleep apnea diagnosis with CPAP improved symptoms. #12 Overweight Body Mass Index 25-29.9 Adult BMI 29.37. PATIENT EDUCATION: Reviewed Instructions To Get Ready for Your Surgery or Procedure: [facility] [id number] rev [id number]. Written and verbal instructions given on medication management beforesurgery. Reviewed instructions on avoiding aspirin, ibuprofen-containing medications, and supplements one week before surgery. Patient may take acetaminophen as needed for pain. RECOMMENDATIONS: Patient medically optimized for planned procedure: Yes Further Recommendations: None documented in this encounter Plan of Treatment Not on file documented as of this encounter Visit Diagnoses Diagnosis Preanesthetic Medical Exam- Primary Primary Malignant Neoplasm Of Prostate (HCC) Hypertension Essential Primary Hyperlipidemia Sleep Apnea Chronic Obstructive Pulmonary Disease (HCC) Smoking Tobacco Use Personal History Personal History Of Infectious And Parasitic Disease (COVID-19) Diabetes Mellitus Type 2 With Diabetic Neuropathy (HCC) Restless Leg Syndrome Overweight Body Mass Index 25-29.9 Adult Hernia Inguinal Bilateral documented in this encounter
--- OUTSIDE RECORDS SUMMARY | 2024-01-25 07:51 | XMS_ITS | Encounter Summary ---
Author Organization [facility] Address [address] [place] [address] Care Team Providers Care Superintendent [employer] Name Role Phone Unavailable Primary Care Provider Unavailabl e Reason for Visit * Reason Comments Prostate Cancer UCO * Outpatient (Routine) - Closed Specialty Diagnoses / Procedures Referred By Contac t Referred To Contact Diagnoses Primary Malignant Neoplasm Of Prostate (HCC) Procedures URO Urethral cath removal & voiding trial (UCO/VT) Fidel Schmid M.D. 200 [place] [phone] [facility] Referral ID Status Reason Start Date Expiration Date Visits Re quested Visits Authorized [id number] Closed 12/12/2023 12/11/2024 1 1 Encounter Details Date Type Department Care Team (Latest Contact Info) Description 12/19/2023 8:00 AM CDT Procedure visit Department of Urology in [place], [place] [address] [place] [phone] Fidel Schmid M.D. [address] [place] [phone] Isabel Flanagan, RBlanca [address] [place] [address] [phone] Primary Malignant Neoplasm Of Prostate (HCC) Social History Tobacco Use Types Packs/Day Years Used Date Smoking Tobacco: Former Cigarettes 2 30 Passive Smoke Exposure: Past Smokeless Tobacco: Never Passive Exposure Comments:pa rents did smoke when he was growing up. Alcohol Use Standard Drinks/Week Comments Not Currently 0 (1 standard drink = 0.6 oz pur e alcohol) [facility] Utilities Answer Date Recorded In the past 12 months has e electric, gas, oil, or water company threatened to shut off services in your [...] your living situation today? I [facility] to live 12/04/2023 Sex and Gender Information Value Date Recorded Sex Assigned at Not on file Gender Identity Not on file Sexual Orientation Not on file documented as of this encounter Progress Notes * Isabel Flanagan R.N. - 12/19/2023 8:00 AM CDT CHIEF COMPLAINT Reason for visit, urinary catheter removal post: RARP by Dr. Bobby Tomlinson on December 04, 2023. IMPRESSION/REPORT/PLAN Patient has started his antibiotic. Patient has stopped his ditropan as indicated 24 hours prior to UCO. Patient is free of ketchup or echavarria colored urine. Sediment noted in catheter bag, encouraged fluids. Assessed for DVT: Patient has no pain with planter/dorsi flexion,, Patient denies pain in lower extremities, No erythema present, and No bilateral lower extremity edema present Assessed Incision(s): Incision(s): Clean, dry, and intact with minimal bruising. Advised that the incision should be kept open to air and to not use creams/ointments/band aids. The patient can immerse his abdomen once the scabs have fully fallen off. Bowel Movements: Reports regular BM's with the use of stool softeners or laxatives. Discussed the potential for intermittent need of a stool softener/laxative for the first 4-6 weeks following surgery. Bowel movements: Patient reports normal bowel movements with help of stool softeners. He was instructed to slowly wean off of softeners to prevent straining with bowel movements after surgery. Nursing Intervention: Patient instilled with 50 mL's sterile normal saline prior to catheter removal. Patient able to void 100 mL's clear tea urine with an ultrasound PVR of 18 mL's. Patient tolerated procedure fairly well. Pathology discussed with patient :Yes. Pathology discussed with patient by: Dr. Tomlinson Patient education: use of incontinence pads and leakage of urine , to push fluids , hematuria , burning with urination , increased frequency/urgency , to remain on weight restrictions for 6 weeks, urinary control exercises , to urinate 2 more times before leaving the clinic and if they urinate to their satisfaction they may leave , to urinate often , penile rehabilitation , to complete the antibiotic Cefdinir, to stop the medication bactracin , and to return to clinic if having voiding issues if before 4PM, if after hours to report to their local emergency room if unable to void. documented in this encounter Plan of Treatment Not on file documented as of this encounter Visit Diagnoses Diagnosis Primary Malignant Neoplasm Of Prostate (HCC) documented in this encounter
--- OUTSIDE RECORDS SUMMARY | 2024-01-25 07:51 | XMS_ITS | Encounter Summary ---
Author Organization [facility] Address [address] [place] [address] Care Team Providers Care Health Information Specialist Name Role Phone Unavailable Primary Care Provider Unavailabl e Reason for Referral * Outpatient (Routine) - Closed Specialty Diagnoses / Procedures Referred By Hector rivera Referred To Contact Diagnoses Primary Malignant Neoplasm Of Prostate (HCC) Procedures URO Urethral cath removal & voiding trial (UCO/VT) Fidel Schmid M.D. 200 [place] [phone] [facility] Referral ID Status Reason Start Date Expiration Date Visits Re quested Visits Authorized [id number] Closed 12/12/2023 12/11/2024 1 1 Reason for Visit * Reason Comments Prostate Cancer UCO * Outpatient (Routine) - Closed Specialty Diagnoses / Procedures Referred By Hector rivera Referred To Contact Diagnoses Primary Malignant Neoplasm Of Prostate (HCC) Procedures URO Urethral cath removal & voiding trial (UCO/VT) Heber Sebastian M.D. [facility] Referral ID Status Reason Start Date Expiration Date Visits Re quested Visits Authorized [id number] Closed 12/05/2023 12/04/2024 1 1 Encounter Details Date Type Department Care Team (Latest Contact Info) Description 12/12/2023 8:00 AM CDT Procedure visit Department of Urology in [place], [place] 200 [place] [address] Heber Sebastian M.D. Gehling, Kelly C, RPedroN. 200 [place] [phone] Primary Malignant Neoplasm Of Prostate (HCC) Social History Tobacco Use Types Packs/Day Years Used Date Smoking Tobacco: Former Cigarettes 2 30 Passive Smoke Exposure: Past Smokeless Tobacco: Never Passive Exposure Comments:tony scott did smoke when he was growing up. Alcohol Use Standard Drinks/Week Comments Not Currently 0 (1 standard drink = 0.6 oz pur e alcohol) [facility] Utilities Answer Date Recorded In the past 12 months has e [employer], gas, oil, or water [employer] threatened to shut off services in your [...] your living situation today? I have a [facility] place to live 12/04/2023 Sex and Gender Information Value Date Recorded Sex Assigned at Not on file Gender Identity Not on file Sexual Orientation Not on file documented as of this encounter Progress Notes * Isabel Flanagan R.N. - 12/12/2023 8:00 AM CDT CHIEF COMPLAINT Reason for visit, urinary catheter removal post: RARP by Dr. Bobby Tomlinson on December 04, 2023. IMPRESSION/REPORT/PLAN Patient has started his antibiotic. Patient has stopped his ditropan as indicated 24 hours prior to UCO. Patient is not free of ketchup or echavarria colored urine. Denies pain but endorses discomfort in perineum rated 5/10. Assessed for DVT: Patient has no pain [...] off. Bowel Movements: Reports regular BM's with intermittent the use of stool softeners or laxatives. Discussed the potential for intermittent need of a stool softener/laxative for the first 4-6 weeks following surgery. Bowel movements: Patient reports normal bowel movements with help of stool softeners. He was instructed to slowly wean off of softeners to prevent straining with bowel movements after surgery. Nursing Intervention: Dr. Tomlinson service paged due to sediment and red/rust colored urine. Plan was to leave catheter in for one week. Nurse assisted patient with switching urinary tubing and bag. Patient stated he has neuropathy and since surgery his left leg has been worse. Discussed interventions and signs/symptoms. Pathology discussed with patient :Yes. Pathology discussed with patient by: Dr. Tomlinson Patient education: Patient instructed push fluids and ambulate. documented in this encounter Plan of Treatment Scheduled Orders Name Type Priority Associated Diagnoses Orde r Schedule URO Urethral cath removal & voiding trial (UCO/VT) Procedure Routine Primary Malignant Neoplasm Of Prostate (HCC) Expected: 12/19/2023, Expires: 03/13/2025 documented as of this encounter Visit Diagnoses Diagnosis Primary Malignant Neoplasm Of Prostate (HCC) documented in this encounter
--- OUTSIDE RECORDS SUMMARY | 2024-01-25 07:51 | XMS_ITS | Encounter Summary ---
Author Organization [facility] Address [address] [place] [address] Care Team Providers Care Production Quality Analyst Name Role Phone Unavailable Primary Care Provider Unavailabl e Encounter Details Date Type Department Care Team (Late st Contact Info) Description 12/07/2023 Documentation Department of Urology in [place], [place] [address] [place] [phone] Bobby Tomlinson M.D. [address] [place] [phone] Social History Tobacco Use Types Packs/Day Years Used Date Smoking Tobacco: Former Cigarettes 2 30 Passive Smoke Exposure: Past Smokeless Tobacco: Never Passive Exposure Comments:tony renyolanda did smoke when he was growing up. Alcohol Use Standard Drinks/Week Comments Not Currently 0 (1 standard drink = 0.6 oz pur e alcohol) [facility] Utilities Answer Date Recorded In the past 12 months has [facility] [employer] gas, oil, or water [employer] threatened to shut off services in your [...] money to buy more. Never true 12/04/19 Within the past 12 months, t he [...] Date Recorded Dental: Regular Dentist Unknown 06/29/20 Housing Stability Answer Date Recorded What is your living situation today? I have a [facility] place to live 12/04/2023 Sex and Gender Information Value Date Recorded Sex Assigned at Not on file Gender Identity Not on file Sexual Orientation Not on file documented as of this encounter Progress Notes * Bobby Tomlinson M.D. - 12/07/2023 10:14 PM CDT Hi Mr. Barney Hope you are recovering well! I received the pathology results of your prostate surgery. I will provide the details in this message for your review. The prostate specimen demonstrated Rosebud 3+4 prostate cancer. This is consistent with your biopsy. The cancer was entirely contained within the shell of the prostate. All the margins were negative for tumor so we got around all of it At this time, no additional therapy is needed. We will need to monitor your PSA in 3 months. I will send you a blood kit that you may take to a local lab. They will draw the blood into the kit we send. Thereafter, please have it mailed back to me(it is postmarked). The blood will process in our lab and i'll call you to discuss the results. Take care and hope you have a speedy recovery. Sincerely, Bobby Tomlinson documented in this encounter Plan of Treatment Not on file documented as of this encounter Visit Diagnoses Not on filedocumented in this encounter
--- OUTSIDE RECORDS SUMMARY | 2024-01-25 07:51 | XMS_ITS | Encounter Summary ---
Author Organization [facility] Address [address] [place] [address] Care Team Providers Care Admissions Rn Name Role Phone Unavailable Primary Care Provider Unavailabl e Reason for Visit * Auth/Cert (Routine) Specialty Diagnoses / Procedures Referred By Hector t Referred To Contact Diagnoses Primary Malignant Neoplasm Of Prostate (HCC) Primary Malignant Neoplasm Of Prostate (HCC) [C61] Procedures NM ROBOTIC SURGICAL SYS NM LAP PROSTEC RETROPUBIC RADCL NM LAPROSC BILAT TOT PELV LMPHADEC ROBOTIC-ASSISTED RADICAL PROSTATECTOMY ROBOTIC-ASSISTED DISSECTION LYMPH NODE - PELVIC Referral ID Status Reason Start Date Expiration Date Visits Re quested Visits Authorized [id number] 1 1 Encounter Details Date Type Department Care Team (Late st Contact Info) Description 12/04/2023 1:28 PM CDT Anesthesia Event [facility] [address] [place] [phone] Rayo Davis M.D. 200 [place] [phone] Abel Wilkins M.D. 200 [place] [phone] Anesthesia Record Procedure Summary Procedure Name Responsible Anesthesiologist Anesthesia Start Time Anesthesia Stop Time ROBOTIC-ASSISTED RADICAL PROSTATECTOMY. Rayo Davis M.D. 12/04/23 1328 12/04/23 1851 Events Date Time Event Comment 12/04/2023 1328 An Start Machine/Equipme nt Checked Infection Precautions Followed Procedure/Site Verified NPO Status Verified Supine Standard ASA Monitors Applied 1331 An Induction 1338 An Intubation 1338 Turnover to Proceduralist 1359 Proc Start 1705 Anes CS Handoff I, Buck stearns, [employer], STOCK TURNER, DNAP, attest that I have reconciled the controlled substances and that I have reviewed all the significant information with the next anesthesia provider assuming care of this patient. 1835 Proc Fin 1838 Turnover to ANE Staff 1841 Airway Removal Criteria Met 1841 Extubation/Airway Removed 1841 an stop data 1851 An End I completed my handoff to the receiving staff during which we 1. Identified the patient 2. Identified the responsible provider 3. Reviewed the pertinent medical history 4. Discussed the surgical course 5. Reviewed intra-op anesthesia management and issues during anesthesia 6. Set expectations for post-procedure period 7. Allowed opportunity for questions and acknowledgement of understanding. Meds Name Total fentanyl injection 50 mcg/mL 200 mcg lidocaine 2% (mg) injection 100 mg rocuronium 10 mg/mL injection 150 mg phenylephrine 100 mcg/mL injection 500 m cg ePHEDrine PF 5 mg/mL syringe injection 2 5 mg ondansetron 4 mg/2 mL injection 4 mg sugammadex 100 mg/mL injection 200 mg propofol 10 mg/mL injection 120 mg ceFAZolin injection 2,000 mg (ANCEF) 4 g heparin (porcine) injection 5,000 Units 5,000 Units dexAMETHasone (DECADRON) injection 4 mg/ mL 4 mg albuterol HFA inhaler 90 mcg/act 2 puff insulin aspart (NovoLOG FlexPen) injecti on 100 Units/mL pen 2 Units Lactated Ringers Free Drip 1,700 mL * Agents No agents on file. * Blood No blood administrations on file. Lines, Drains, and Airways Type Details Placement Removal Scope Sites 12/04/23; Abdomen; 1 ; Lateral, Left; 2; Left, Medial; 3; Umbilicus; 4; Right, Lateral; 5; Medial, Right; 6; Upper, Right; Bandaids 12/04/23 0000 by Constance Mir, RPedroNPedro Peripheral IV Placement Date: 11/15 ; Placement Time: 1033; Orientation: Anterior, Distal, Left, Lower; Location: Forearm; Site Prep: Chlorhexidine (Preferred); Technique: Anatomical landmarks; Inserted by: SMB; Insertion Attempts: 1 12/04/23 1033 by Theodora Ott Indwelling Urinary Catheter Placement Date: 12/04/23; Inserted by: Bushra; Type: Non-latex; Size: 20 Fr.; Balloon Size: 30 mL (20 sterile water in balloon); Urine Returned: Yes; Removal Date: 12/19/23; Removal Time: 829; Removal Reason: Per order 12/04/23 0000 by Cassandra Riley RPedroNPedro 12/19/23 0830 by Isabel Flanagan RPedroNPedro ETT Placement Date: 11/15 ; Placement Time: 1337 (created via procedure documentation); Mask Ventilation: Easy mask; Technique: Video laryngoscopy; Type: Standard ETT; Single Lumen Tube Size: 7.5 mm; Cuffed: Yes; Location: Oral; Grade View: Grade 2A; Insertion Attempts: 1; Placement Verification: Bilateral breath sounds, Positive ETCO2, Symmetrical chest wall movement; Removal Date: 12/04/23; Removal Time: 184012/04/23 133 by Rob Robertson APRN, JORGE 12/04/231840 by William Howard APRN, STOCK TURNER documented in this encounter Social History Tobacco Use Types Packs/Day Years Used Date Smoking Tobacco: Former Cigarettes 2 30 Passive Smoke Exposure: Past Smokeless Tobacco: Never Passive Exposure Comments:tony scott did smoke when he was growing up. Alcohol Use Standard Drinks/Week Comments Not Currently 0 (1 standard drink = 0.6 oz pur e alcohol) [facility] Utilities Answer Date Recorded In the past 12 months has [facility] [employer], gas, oil, or water [employer] threatened to shut off services in your [...] your living situation today? I have a [facility] place to live 12/04/2023 Sex and Gender Information Value Date Recorded Sex Assigned at Not on file Gender Identity Not on file Sexual Orientation Not on file documented as of this encounter OR Notes * Anesthesia Postprocedure Evaluation - Praneeth Robbins M.D. - 12/04/2023 7:05 PM CDT Patient: Matt Barney Procedure Summary Date: 12/04/23 Room / Location: [place] [address] / [facility] in [place], [place] Anesthesia Start: 1328 Anesthesia Stop: 1850 Procedure: ROBOTIC-ASSISTED RADICAL PROSTATECTOMY. Diagnosis: Primary Malignant Neoplasm Of Prostate (HCC) (Primary Malignant Neoplasm Of Prostate (HCC) [C61].) Providers: Bobby Tomlinson M.D. Responsible Provider: Rayo Davis M.D. Anesthesia Type: general ASA Status: 3 Anesthesia Type: general Last vitals Vitals Value Taken Time BP 120/62 12/04/23 1900 Temp 37.1 ??C 12/04/23 1846 Pulse 68 12/04/23 1905 Resp 17 12/04/23 1905 SpO2 96 % 12/04/23 1905 Vitals shown include unfiled device data. Please reference Vitals flowsheet for most recent vital signs. Anesthesia Post Evaluation Patient Disposition: general care unit Cardiovascular status: hemodynamics (HR & BP) acceptable Respiratory status: patent airway with spontaneous effort Temperature: normothermic Oxygen requirements: nasal cannula Level of consciousness: awake Pain score: pain adequately controlled and/or at baseline Post Op nausea/vomiting: none Hydration status: euvolemic * Anesthesia Procedure Notes - Rob Robertson APRN, CRNA - 12/04/2023 1:48 PM CDTAssociated Order(s): Airway Airway Date/Time: 12/04/2023 1:38 PM Performed by: Rob Robertson APRN, CRNA Authorized by: Abel Wilkins M.D. Patient location during procedure: OR / Procedure Area PROCEDURE DETAILS: Mask difficulty assessment: easy mask Final airway type: video laryngoscope Laryngeal Manipulation: no Final best view of glottic structures - Cormack/Lehane Score: grade 2A ETT location: oral VL device: glide scope Morehouse scope blade size: 4 Tube size: 7.5 ETT distance at teeth/gum: 23 Oral tube type: standard ETT Cuffed: yes Leak Test Performed: no Number of attempt to successful placement: 1 Airway confirmation: bilateral breath sounds, positive ETCO2 and bilateral chest rise Other previous techniques attempted: none PRE PROCEDURE DETAILS: Pre evaluation for airway management: procedure Urgency: elective Preop assessment of probable difficulty: questionable / suspicious difficult airway Preoxygenation: bag valve mask SEDATION / ANESTHESIA Anesthesia method: anesthesia POST PROCEDURE DETAILS: Procedure outcome: successful Notable Events: no complications * Anesthesia Preprocedure Evaluation - Abel Wilkins M.D. - 12/04/2023 1:12 PM CDT Preprocedure Anesthesia & H&P Assessment Procedure Summary Date/Time: 12/04/23 1317 Procedures: ROBOTIC-ASSISTED RADICAL PROSTATECTOMY. ROBOTIC-ASSISTED DISSECTION LYMPH NODE, PELVIC. Diagnosis: Primary Malignant Neoplasm Of Prostate (HCC) [C61] Pre-op diagnosis: Primary Malignant Neoplasm Of Prostate (HCC) [C61]. Location: [place] [address] / [facility] in [place], [place] Providers: Bobby Tomlinson M.D. Pertinent components of the patient's history including current problem list, medical history, surgical history, family history, social history, medications and allergies were reviewed. Present illness and pre-op diagnosis were confirmed. The planned surgery / procedure was verified with the patient / legal guardian. The patient's general health condition remains unchanged RELEVANT COMORBID CONDITIONS CV (+) Hypertension Essential Primary RESP (+) Chronic Obstructive Pulmonary Disease (HCC) ENDO (+) Diabetes Mellitus Type 2 With Diabetic Neuropathy (HCC) ONC (+) Primary Malignant Neoplasm Of Prostate (HCC) Other (+) Overweight Body Mass Index 25-29.9 Adult OBJECTIVE PHYSICAL EXAMINATION Airway (HEENT) Mallampati: III TM Distance: <3 FB Cardiovascular Rhythm: Regular Rate: Normal Cardiovascular Assessment: cardiovascular normal Functional Capacity: >4 METS Pulmonary Pulmonary Assessment: Clear and wheezing General / Constitutional Constitutional Assessment: Normal General State of Health:: calm ASSESSMENT / PLAN ANESTHESIA PLAN ASA: 3 Anesthesia Plan: general Patient seen and allergies reviewed, anesthesia plan and risks discussed directly with patient /legal guardian or through an interpreter translator. Risks/Benefits/Alternatives of Blood transfusion discussed with patient / legal guardian, includingan opportunity to ask questions and/or decline some or all transfusion therapies. The patient / legal guardian consented to the use of all blood products, as deemed medically necessary Approval to Proceed: approved for anesthesia documented in this encounter Plan of Treatment Not on file documented as of this encounter Procedures Procedure Name Priority Date/Time Associated Diagnosis Comments LDA ANE ENDOTRACHEAL AIRWAY Routine 12/04/2023 1:38 PM CDT documented in this encounter Results * LDA ANE ENDOTRACHEAL AIRWAY (12/04/2023 1:38 PM CDT) Narrative Rob Robertson APRN, CRNA - 12/04/2023 1:38 PM CDT Rob Robertson APRN, CRNA ? 12/04/2023 ??1:49 PM Airway Date/Time: 12/04/2023 1:38 PM Performed by: Rob Robertson APRN, STOCK TURNER Authorized by: Abel Wilkins M.D. ?? Patient location during procedure: OR / Procedure Area PROCEDURE DETAILS: Mask difficulty assessment: easy mask Final airway type: video laryngoscope Laryngeal Manipulation: no ?? Final best view of glottic structures - Cormack/Lehane Score: grade 2A ETT location: oral VL device: glide scope Morehouse scope blade size: 4 Tube size: 7.5 [...] complications Abel Wilkins M.D. ANESTHESIA ORDERABLE S documented in this encounter Visit Diagnoses Not on filedocumented in this encounter Administered Medications Inactive Administered Medications - up to 3 most recent administrations Medication Order MAR Action Action Date Dose Rate Site albuterol 90 mcg/actuation inhaler inhalation, As needed, Starting on Mon12/04/23 at 1335, Anesthesia Intra-op Given 12/04/2023 1:35 PM CDT 2 puffs ceFAZolin injection 2,000 mg (ANCEF) 2,000 mg (rounded from 2,550 mg = 25 mg/kg ? 102 kg), intravenous, Once, On Mon12/04/23 at 1245, For 1 dose, Intra-Op, Administer within 1 hour prior to surgical incision If needed, reconstitute vial per package insert instructions. See IVAG for administration guidelines., Drug Monitoring Program: Pharmacist to adjust medication dosing based on indication and drug clearance factors., Indications: Prophylaxis, surgical Given 12/04/2023 4:44 PM CDT 2 g Given 12/04/2023 1:51 PM CDT 2 g dexAMETHasone injection (DECADRON) intravenous, As needed, Starting on Mon12/04/23 at 1345, Anesthesia Intra-op Given 12/04/2023 1:45 PM CDT 4 mg ePHEDrine (PF) injection intravenous, As needed, Starting on Mon12/04/23 at 1341, Anesthesia Intra-op Given 12/04/2023 1:55 PM CDT 10 mg Given 12/04/2023 1:49 PM CDT 5 mg Given 12/04/2023 1:41 PM CDT 10 mg fentaNYL injection (SUBLIMAZE) intravenous, As needed, Starting on Mon12/04/23 at 1331, Anesthesia Intra-op Given 12/04/2023 6:33 PM CDT 50 mcg Given 12/04/2023 4:15 PM CDT 50 mcg Given 12/04/2023 1:31 PM CDT 100 mcg heparin (porcine) injection 5,000 Units 5,000 Units, subcutaneous, Once, On Mon12/04/23 at 1245, For 1 dose, Intra-Op, Administer prior to induction of anesthesia. Given 12/04/2023 1:42 PM CDT 5,000 Units insulin aspart U-100 injection (NovoLOG FlexPen) subcutaneous, As needed, Starting on Mon12/04/23 at 1703, Anesthesia Intra-op Given 12/04/2023 5:03 PM CDT 2 Units Lactated Ringer's intravenous, Continuous Infusion: Per Instructions PRN, Starting on Mon12/04/23 at 1327, Anesthesia Intra-op New Bag 12/04/2023 5:19 PM CDT New Bag 12/04/2023 1:27 PM CDT lidocaine (PF) (cardiac) injection intravenous, As needed, Starting on Mon12/04/23 at 1331, Anesthesia Intra-op Given 12/04/2023 1:31 PM CDT 100 mg ondansetron (PF) injection (ZOFRAN) intravenous, As needed, Starting on Mon12/04/23 at 1344, Anesthesia Intra-op Given 12/04/2023 1:44 PM CDT 4 mg phenylephrine injection intravenous, As needed, Starting on Mon12/04/23 at 1347, Anesthesia Intra-op Given 12/04/2023 5:34 PM CDT 100 mcg Given 12/04/2023 4:27 PM CDT 100 mcg Given 12/04/2023 3:56 PM CDT 100 mcg propofoL injection (DIPRIVAN) intravenous, As needed, Starting on Mon12/04/23 at 1332, Anesthesia Intra-op Given 12/04/2023 1:32 PM CDT 120 mg rocuronium injection (ZEMURON) intravenous, As needed, Starting on Mon12/04/23 at 1333, Anesthesia Intra-op Given 12/04/2023 4:30 PM CDT 20 mg Given 12/04/2023 3:43 PM CDT 30 mg Given 12/04/2023 1:33 PM CDT 100 mg sugammadex injection (BRIDION) intravenous, As needed, Starting on Mon12/04/23 at 1827, Anesthesia Intra-op Given 12/04/2023 6:27 PM CDT 200 mg documented in this encounter
--- OUTSIDE RECORDS SUMMARY | 2024-01-25 07:51 | XMS_ITS | Encounter Summary ---
Author Organization [facility] Address [address] [place] [address] Care Team Providers Care Street Sweeper Name Role Phone Unavailable Primary Care Provider Unavailabl e Reason for Visit * Reason Comments Patient Education Encounter Details Date Type Department Care Team (Late st Contact Info) Description 11/30/2023 9:00 AM CDT Education Department of Patient Education in [place], [place] [address] [place] [phone] Bobby Tomlinson M.D. [address] [place] [phone] Elijah Monterroso, R.N. Primary Malignant Neoplasm Of Prostate (HCC) Social [...] Recorded Dental: Regular Dentist Unknown 06/29/20 23 Sex and Gender Information Value Date Recorded Sex Assigned at Not on file Gender Identity Not on file Sexual Orientation Not on file documented as of this encounter Plan of Treatment Not on file documented as of this encounter Visit Diagnoses Diagnosis Primary Malignant Neoplasm Of Prostate (HCC) documented in this encounter
--- OUTSIDE RECORDS SUMMARY | 2024-01-25 07:51 | XMS_ITS | Encounter Summary ---
Author Organization [facility] Address [address] [place] [address] Care Team Providers Care Stringed Instrument Assembler Name Role Phone Unavailable Primary Care Provider Unavailabl e Reason for Visit * Auth/Cert (Routine) Specialty Diagnoses / Procedures Referred By Hector t Referred To Contact Diagnoses Primary Malignant Neoplasm Of Prostate (HCC) Primary Malignant Neoplasm Of Prostate (HCC) [C61] Procedures RI ROBOTIC SURGICAL SYS RI LAP PROSTEC RETROPUBIC RADCL RI LAPROSC BILAT TOT PELV LMPHADEC ROBOTIC-ASSISTED RADICAL PROSTATECTOMY ROBOTIC-ASSISTED DISSECTION LYMPH NODE - PELVIC Referral ID Status Reason Start Date Expiration Date Visits Re quested Visits Authorized [id number] 1 1 Encounter Details Date Type Department Care Team (Late st Contact Info) Description 12/04/2023 1:17 PM CDT - 12/04/2023 6:43 PM CDT Surgery [facility] [address] [place] [address] Bobby Tomlinson M.D. [address] [place] [address] ROBOTIC-ASSISTED RADICAL PROSTATECTOMY. Social History Tobacco Use Types Packs/Day Years Used Date Smoking Tobacco: Former Cigarettes 2 30 Passive Smoke Exposure: Past Smokeless Tobacco: Never Passive Exposure Comments:tony renyolanda did smoke when he was growing up. Alcohol Use Standard Drinks/Week Comments Not Currently 0 (1 standard drink = 0.6 oz pur e alcohol) [facility] Utilities Answer Date Recorded In the past 12 months has RRsat, gas, oil, or water [employer] threatened to shut off services in your [...] your living situation today? I have a [facility] place to live 12/04/2023 Sex and Gender Information Value Date Recorded Sex Assigned at Not on file Gender Identity Not on file Sexual Orientation Not on file documented as of this encounter Last Filed Vital Signs Vital Sign Reading Time Taken Comments Blood Pressure 109/73 12/04/2023 10:30 AM CDT Pulse 71 12/04/2023 10:30 AM CDT Temperature 36.6 ??C (97.9 ??F) 12/04/2023 10:30 AM C DT Respiratory Rate - - Oxygen Saturation 93% 12/04/2023 10:30 AM CDT Inhaled Oxygen Concentration - - Weight 96 kg (211 lb 10.3 oz) 12/04/2023 10:30 A M CDT Height 177.5 cm (5' 9.88) 12/04/2023 10:30 AM C DT Body Mass Index 30.47 12/04/2023 10:30 AM CDT documented in this encounter Discharge Summaries * Heber Sebastian M.D. - 12/05/2023 8:15 AM CDT DISCHARGE SUMMARY BRIEF OVERVIEW Hospital: [facility] Discharge Provider: Bobby Tomlinson M.D. Primary Team: [facility] Urology Surgery - [place] No primary care provider on file. Primary Care Provider Phone Number: None Primary Care Provider Fax Number: None Other Providers: None Admission Date: 12/04/2023 Discharge Date: 12/05/2023 PRINCIPAL DIAGNOSIS Primary Malignant Neoplasm Of Prostate (HCC) SECONDARY DIAGNOSES Principal Problem: Primary Malignant Neoplasm Of Prostate (HCC) Resolved Problems: * No resolved hospital problems. * Surgery Information This Encounter Past Procedures (12/05/2022 to Today) Date Procedures Providers Loc / Dept 12/04/2023 ROBOTIC-ASSISTED RADICAL PROSTATECTOMY. Bobby Tomlinson M.D.Martin, Austin J, M.D. [facility] OR DISCHARGE DISPOSITION Home or Self Care [1] ACTIVE ISSUES REQUIRING FOLLOW UP Catheter removal in one week Phone call with pathology results in one week PSA in three months None OUTPATIENT FOLLOW UP For appointment details refer to your Patient Appointment Guide. TEST RESULTS PENDING AT DISCHARGE Pending Labs Order Current Status Surgical Pathology, Frozen Lab In process DETAILS OF HOSPITAL STAY REASON FOR ADMISSION Primary Malignant Neoplasm Of Prostate (HCC) HOSPITAL COURSE SURGICAL PROCEDURE A robot assisted radical prostatectomy was performed on 12/04/23 without complication. PATHOLOGY Pending. HOSPITAL COURSE Following the procedure, the patient was transferred to general floor care in stable condition. Thepostoperative course was otherwise uneventful. By the time of dismissal, the patient was ambulatory, tolerating oral intake with no nausea/vomiting, and had pain controlled with oral medications. DISMISSAL PHYSICAL EXAM: General: Alert, oriented. No acute distress. Pulm: Non-labored respirations. Cardio: Regular rate and rhythm. Abdomen: Soft, non-tender, non-distended. Incisions C/D/I. : Catheter draining clear yellow urine. Skin: No rashes. Extremities: Well perfused. No edema. Psychiatric: Appropriate affect. CONSULTS ORDERED DURING THIS ADMISSION None CONDITION AT DISCHARGE stable Discharge instructions were provided to the patient and caregiver(s). Total time spent in discharge services today: 22 minutes. documented in this encounter Discharge Instructions * Discharge Instructions* Amelia Carr - 12/04/2023 10:28 AM CDT You were discharged from the [facility] Urology Surgery - [facility] Service. Please identify this service name if you call with questions after hospitalization. * Attachments The following attachments cannot be sent through Care Everywhere. * Acetaminophen (By mouth) (Bangladeshi) * Bacitracin (On the skin) (Bangladeshi) * Cefdinir (By mouth) (Bangladeshi) * Polyethylene Glycol 3350 (By mouth) (Bangladeshi) * Oxybutynin (By mouth) (Bangladeshi) * Senna (By mouth) (Bangladeshi) * Tramadol (By mouth) (Bangladeshi) documented in this encounter Medications at Time of Discharge Medication Sig Dispensed Refills Start Date End Date acetaminophen (TYLENOL) 500 mg tablet Take 2 tablets (1,000 mg total) by mouth every 6 (six) hours. 80 tablet 1 12/05/2023 amLODIPine-olmesartan (DIVINE) 5-20 mg per tablet Take 1 tablet by mouth daily. 04/08/[address] tablet Take 1 tablet (81 mg total) by mouth daily. May resume on MondayNovember 16 12/05/2023 atorvastatin (LIPITOR) 20 mg tablet Take 20 mg by mouth at bedtime. 03/16/2017 bacitracin 500 unit/gram ointment Apply 1 Application topically 2 (two) times a day. Apply to the head of the penis while catheter is in place. 30 g 12/05/2023 blood sugar diagnostic strips (Blood Glucose Test Strips) Use to test blood sugars 1 times daily or as directed 03/21/2017 cetirizine (ZyrTEC) 10 mg tablet Take 10 mg by mouth daily. LANCETS MIS Use to test blood sugar 1 times daily or as directed. 03/21/2017 metFORMIN (GLUCOPHAGE) 1,000 mg tablet Take 1,000 mg by mouth 2 (two) times a day with meals. 04/08/2023 metoprolol tartrate (LOPRESSOR) 100 mg tablet Take 100 mg by mouth 2 (two) times a day. 04/12/2023 montelukast (SINGULAIR) 10 mg tablet Take 10 mg by mouth at bedtime. 04/08/2023 multivitamin tablet Take 1 tablet by mouth every morning. 03/16/2017 polyethylene glycol (MIRALAX) 17 gram/dose oral powder Take 17 g by mouth daily. Dissolve each 17 g dose in 240 mL (8 ounces) of beverage. To prevent constipation while on opioids and bladder spasm medications 510 g 12/05/2023 sennosides-docusate sodium (Senna with Docusate Sodium) 8.6-50 mg per tablet Take 1 tablet by mouth 2 (two) times a day. To prevent constipation, while on opioids and bladder spasm medications 30 tablet 1 12/05/2023 traMADoL (ULTRAM) 50 mg tabletIndications:Acu te Pain Take 1 tablet (50 mg total) by mouth every 6 (six) hours as needed for severe pain or score 7-10 of 10 (for pain not relieved by acetaminophen) 10 tablet 12/05/2023 UNABLE TO FIND Use to test blood sugar one times daily or as directed. 03/21/2017 cefdinir (OMNICEF) 300 mg capsule Take 1 capsule (300 mg total) by mouth 2 (two) times a day before breakfast and dinner for 1 day on the day of catheter removal (one capsule in the am prior to removal and one tablet in the pm after removal). 2 capsule 12/05/2023 12/06/2023 oxyBUTYnin (DITROPAN-XL) 10 mg 24 hr tablet Take 1 tablet (10 mg total) by mouth at bedtime for 9 days. Do not take within 24 hours of catheter removal. 9 tablet 12/05/2023 12/12/2023 documented as of this encounter Progress Notes * Isac Salguero, Pharm.D., R.Ph. - 12/04/2023 10:26 AM CDT Images from the original note were not included. Admission Medication History Note Adherence issues: No concerns Medication list source: Patient and Pharmacy or dispense records Medication related information: none Prior to Admission Medications Med List Status: Pharmacy Complete Set By: Isac Salguero, Pharm.D., R.Ph. at 12/04/2023 10:25 AM Taking? Last Dose Informant Start Date End Date LT amLODIPine-olmesartan (DIVINE) 5-20 mg per tablet 12/03/2023 at AM -- 04/08/23 -- Take 1 tablet by mouth daily. aspirin [address] tablet Past Month -- -- -- Take 81 mg by mouth daily. atorvastatin (LIPITOR) 20 mg tablet 12/03/2023 at PM -- 03/16/17 -- Take 20 mg by mouth at bedtime. blood sugar diagnostic strips (Blood Glucose Test Strips) -- -- 03/21/17 -- Use to test blood sugars 1 times daily or as directed cetirizine (ZyrTEC) 10 mg tablet Past Week -- -- -- Take 10 mg by mouth daily. LANCETS MISC -- -- 03/21/17 -- Use to test blood sugar 1 times daily or as directed. metFORMIN (GLUCOPHAGE) 1,000 mg tablet 12/03/2023 at AM -- 04/08/23 -- Take 1,000 mg by mouth 2 (two) times a day with meals. metoprolol tartrate (LOPRESSOR) 100 mg tablet 12/04/2023 at AM -- 04/12/23 -- Take 100 mg by mouth 2 (two) times a day. montelukast (SINGULAIR) 10 mg tablet 12/03/2023 at PM -- 04/08/23 -- Take 10 mg by mouth at bedtime. multivitamin tablet Past Week -- 03/16/17 -- Take 1 tablet by mouth every morning. tamsulosin (FLOMAX) 0.4 mg 24 hr capsule 12/03/2023 at AM -- 11/13/23 12/13/23 Take 1 capsule (0.4 mg total) by mouth daily. UNABLE TO FIND -- -- 03/21/17 -- Use to test blood sugar one times daily or as directed. documented in this encounter Nursing Notes * Delfina Sykes R.R.T., Trish.R.T. - 12/04/2023 10:05 PM CDT Patient's home PAP device set up for use with O2 bleed in. Patient is able to manage device independently at this time. Nursing will manage oxygen bleed. 12/04/235 BPAP/CPAP Therapy Patient's Own Equipment Mask;Tubing;CPAP;Patient able to manage equipment on own;Equipment inspected (per site policy) Ventilator Parameters BPAP/CPAP Mode Per Home Settings O2 Flow Rate 2 L/min documented in this encounter OR Notes * Op Note - Bobby Tomlinson M.D. - 12/04/2023 1:59 PM CDT Pre-op Diagnosis Primary Malignant Neoplasm Of Prostate (HCC) Post-op Diagnosis Primary Malignant Neoplasm Of Prostate (HCC) Hide Inspector A web marketing assistant actively participated and was necessary for one or more of the following: opening, exposure and visualization during the case, maintaining hemostasis, wound closure resulting in itssafe and expeditious completion. Findings Bilateral nerve sparing radical prostatectomy Removal of periprostatic lymph node tissue Watertight anastomosis Complications None Operative Note Narrative After the patient was given prophylactic antibiotics, he was brought into the room, anesthetized, and placed in the modified lithotomy position. He was then prepped in the standard fashion. The peritoneal cavity was accessed, and pneumoperitoneum was established. A total of six laparoscopic workingports were placed. The surgical robot was then docked at the patient's bedside. The space of Retzius was developed using a combination of blunt and cautery dissection. The endopelvic fascia was dissected out. Periprostatic lymph node tissue was removed. The endopelvic fascia was then incised bilaterally. The dorsal venous complex was ligated proximally and distally. The plane between the prostateand the bladder was established using cautery. The bladder neck was then reconstructed using 2 0 Vicryl suture. Vasa deferentia were dissected out and transected bilaterally. Seminal vesicles were dissected out circumferentially The plane between the prostate and the rectum was established using cold scissors. The pedicles of the prostate were taken using hemostatic clips and scissors. The neurovascular bundles were dissected off the prostate from base to apex and thus preserved. The dorsal venous complex was transected. The urethra was dissected circumferentially and transected. The prostate was then moved out of the surgical field and placed into an extraction bag. Excellent hemostasis was achieved. Vesicourethral anastomosis was then constructed in the usual fashion using a running suture. It was tested with 120 cc of saline and appeared to be watertight. All specimens and ports were removed under direct vision.All port sites were closed in the usual fashion. They were infiltrated with 0.5% bupivacaine. Therewere no complications, and the patient was taken to the recovery room in a stable condition. Bobby Tomlinson M.D. documented in this encounter Miscellaneous Notes * Hospital Course - Fidel Schmid M.D. - 12/04/2023 5:42 PM CDT SURGICAL PROCEDURE A robot assisted radical prostatectomy was performed on 12/04/23 without complication. PATHOLOGY Pending. HOSPITAL COURSE Following the procedure, the patient was transferred to general floor care in stable condition. Thepostoperative course was otherwise uneventful. By the time of dismissal, the patient was ambulatory, tolerating oral intake with no nausea/vomiting, and had pain controlled with oral medications. DISMISSAL PHYSICAL EXAM: General: Alert, oriented. No acute distress. Pulm: Non-labored respirations. Cardio: Regular rate and rhythm. Abdomen: Soft, non-tender, non-distended. Incisions C/D/I. : Catheter draining clear yellow urine. Skin: No rashes. Extremities: Well perfused. No edema. Psychiatric: Appropriate affect. documented in this encounter Plan of Treatment Scheduled Orders Name Type Priority Associated Diagnoses Orde r Schedule PSA (Prostate-Specific Antigen), Diagnostic Lab Routine Primary Malignant Neoplasm Of Prostate (HCC) Expected: 03/05/2024 (Approximate), Expires: 12/03/2026 URO Urethral cath removal & voiding trial (UCO/VT) Procedure Routine Primary Malignant Neoplasm Of Prostate (HCC) Expected: 12/12/2023, Expires: 03/05/2025 documented as of this encounter Procedures Procedure [...] POCT, B Routine 12/04/2023 2:56 PM CDT ROBOTIC-ASSISTED RADICAL PROSTATECTOMY 12/04/2023 12:58 PM CDT Primary Malignant Neoplasm Of Prostate (HCC) GLUCOSE POCT, B Routine 12/04/2023 12:38 PM CDT GLUCOSE POCT, B Routine 12/04/2023 10:34 AM CDT documented in this encounter Results * (ABNORMAL) Glucose, POCT (12/05/2023 7:15 AM CDT) Glucose, POCT, B 173(H) 70 - 140 mg/dL 12/05/2023 7:24 AM CDT PCDE Site Capillary 12/05/2023 7:24 AM CDT PCDE Blood 12/05/2023 7:15 AM CDT 12/05/2023 7:25 AM CDT Unknown Provider LAB POCT ORDERABLES- MANUAL Performing Organization Address City/[facility]/ZIP Co de Phone Number POC [facility] [address] [place] [address], [facility] PCDE [facility] [address] [place] [address] * (ABNORMAL) Glucose, POCT (12/04/2023 7:53 PM CDT) Glucose, POCT, B 183(H) 70 - 140 mg/dL 12/04/2023 7:56 PM CDT PCDE Site Capillary 12/04/2023 7:56 PM CDT PCDE Last Intake > 4 hours 12/04/2023 7:56 PM CDT PCDE Blood 12/04/2023 7:53 PM CDT 12/04/2023 7:56 PM CDT Unknown Provider LAB POCT ORDERABLES- MANUAL Performing Organization Address City/[facility] Co de Phone Number POC [facility] [address] [place] [address], [facility] PCDE [facility] [address] [place] [address] * (ABNORMAL) Glucose, POCT (12/04/2023 7:00 PM CDT) Glucose, POCT, B 164(H) 70 - 140 mg/dL 12/05/2023 6:35 AM CDT PCDE Site Capillary 12/05/2023 6:35 AM CDT PCDE Blood 12/04/2023 7:00 PM CDT 12/05/2023 6:35 AM CDT Unknown Provider LAB POCT ORDERABLES- MANUAL [facility] [address] [place] [address], [facility] PCDE [facility] [address] [place] [address] * (ABNORMAL) Glucose, POCT (12/04/2023 5:00 PM CDT) Glucose, POCT, B 169(H) 70 - 140 mg/dL 12/04/2023 5:01 PM CDT PCDE Site Capillary 12/04/2023 5:01 PM CDT PCDE Blood 12/04/2023 5:00 PM CDT 12/04/2023 5:01 PM CDT Unknown Provider LAB POCT ORDERABLES- MANUAL [facility]OC [facility] [address] [place] [address], [facility] PCDE [facility] [address] [place] [address] * Surgical Pathology, Frozen Lab (12/04/2023 3:55 [...] submitted for permanent sections. ??Grossed by [place]yenne Nation.H.S., PA(ASCP). B. ??Received fresh and placed in formalin labeled prostate is a 52.6 gram, 4.8 (S-I) x 3.6 (A-P) x 4.5 (R-L) cm radical prostatectomy, with nodular hypertrophy. The specimen is inked and the prostatic apex and bladder neck margins are submitted perpendicularly. ??Grossly, there is a 1.4 x 1.2 x 0.8 cm white mass involving the right mid, anterior prostate. ??Software Developer Manager tissue submitted for permanent sections. ??Grossed by Kristyn NationH.TONY Michelle([facility]). 12/07/2023 5:43 PM CDT METH Block Summary [...] identified. B. ??Prostate, radical prostatectomy: ??Prostatic adenocarcinoma (Tieton score 3+4=7; Grade group 2) is identified [...] adenocarcinoma Histologic Grade ?? Grade Group and Tieton Score ?Grade Group ?Grade Group 2 (Davy [...] Tomlinson M.D. LAB SURG PATH ORDERA BLES [facility] [address] [place] [address], [facility] METH [address] [place] [address] * (ABNORMAL) Glucose, POCT (12/04/2023 2:56 PM CDT) Glucose, POCT, B 150(H) 70 - 140 mg/dL 12/04/2023 2:58 PM CDT PCDE Site Capillary 12/04/2023 2:58 PM CDT PCDE Blood 12/04/2023 2:56 PM CDT 12/04/2023 2:58 PM CDT Unknown Provider LAB POCT ORDERABLES- MANUAL Performing Organization Address City/[facility]/ZIP Co de Phone Number POC [facility] [address] [place] [address], [facility] PCDE [facility] [address] [place] [address] * Glucose, POCT (12/04/2023 12:38 PM CDT) Glucose, POCT, B 114 70 - 140 mg/dL 12/04/2023 12:47 PM CDT PCDE Site Capillary 12/04/2023 12:47 PM CDT PCDE Blood 12/04/2023 12:3 8 PM CDT 12/04/2023 12:47 PM CDT Unknown Provider LAB POCT ORDERABLES- MANUAL Performing Organization Address [facility] Co de Phone Number POC [facility] [address] [place] [address], [facility] PCDE [facility] [address] [place] [address] * (ABNORMAL) Glucose, POCT (12/04/2023 10:34 AM CDT) Glucose, POCT, B 156(H) 70 - 140 mg/dL 12/04/2023 10:36 AM CDT PCDE Last Intake 3-4 hours 12/04/2023 10:36 AM CDT PCDE Blood 12/04/2023 10:3 4 AM CDT 12/04/2023 10:36 AM CDT Unknown Provider LAB POCT ORDERABLES- MANUAL Performing Organization Address City/[facility]/ZIP Co de Phone Number POC [facility] [address] [place] [address], [facility] PCDE [facility] [address] [place] [address] documented in this encounter Visit Diagnoses Diagnosis Primary Malignant Neoplasm Of Prostate (HCC)- Primary Primary Malignant Neoplasm Of Prostate (HCC) Primary Malignant Neoplasm Of Prostate (HCC) documented in this encounter Admitting Diagnoses Diagnosis Primary Malignant Neoplasm Of Prostate (HCC) documented in this encounter Administered Medications Inactive Administered Medications - up to 3 most recent administrations Medication Order MAR Action Action Date Dose Rate Site acetaminophen injection 1,000 mg 1,000 mg, intravenous, at 400 mL/hr, Administer over 15 Minutes, Once as needed, other, If patient has not received in previous 6 hours, Starting on Mon12/04/23 at 1851, For 1 dose, PACU (only), Oral unless RASS less than -1 or nausea/vomiting. Do not use if given in last 6 hours, Restriction Criteria (Pharmacy will review and approve if criteria met): Unable to take or tolerate medications administered via the enteral route or orally (not just NPO) New Bag 12/04/2023 6:55 PM CDT 1,000 mg 400 mL/hr acetaminophen tablet 1,000 mg (TYLENOL) 1,000 mg, oral, Once, On Mon12/04/23 at 1245, For 1 dose, Pre-Op, PreOp give in preprocedural area. Given 12/04/2023 12:39 PM CDT 1,000 mg acetaminophen tablet 1,000 mg (TYLENOL) 1,000 mg, oral, Every 6 hours, First dose on Mon12/05/23 at 0100 Given 12/05/2023 6:20 AM CDT 1,000 mg Given 12/05/2023 12:45 AM CDT 1,000 mg atorvastatin tablet 20 mg (LIPITOR) 20 mg, oral, Daily at bedtime, First dose on Mon12/04/23 at 2100 Given 12/04/2023 8:25 PM CDT 20 mg bacitracin 500 unit/gram ointment packet 1 packet 1 packet (1 Application), topical, 3 times daily, First dose on Mon12/04/23 at 2100, Apply to tip of penis. Given 12/05/2023 8:26 AM CDT 1 packet Given 12/04/2023 8:24 PM CDT 1 packet bacitracin 500 unit/gram ointment packet As needed, Starting on Mon12/04/23 at 1822, Intra-Op Given 12/04/2023 6:22 PM CDT 1 packet Other BUPivacaine 0.25 % (2.5 mg/mL) injection (MARCAINE) As needed, Starting on Mon12/04/23 at 1816, Intra-Op Given 12/04/2023 6:31 PM CDT 30 mL Scrotum heparin (porcine) injection 5,000 Units 5,000 Units, subcutaneous, Every 8 hours scheduled, First dose on Mon12/04/23 at 2200 Given 12/05/2023 6:20 AM CDT 5,000 Units Right Upper Arm (Matthew k) Given 12/04/2023 9:50 PM CDT 5,000 Units R ight Upper Arm (Back) insulin aspart U-100 injection 0-13 Units (NovoLOG FlexPen) 0-13 Units, subcutaneous, 3 times daily, First dose on Mon12/05/23 at 0800, Insulin Scale: Moderate Correction Scale, 140 - 179: 2 units, 180 - 219: 4 units, 220 - 259: 6 units, 260 - 299: 8 units, 300 - 339: 10 units, 340 - 379: 12 units, 380 - 399: 13 units, Greater than 399: Call service writing Insulin orders Given 12/05/2023 8:25 AM CDT 2 Units Left Upper Arm (Back ) insulin aspart U-100 injection 0-8 Units (NovoLOG FlexPen) 0-8 Units, subcutaneous, Every 2 hour PRN, high blood sugar, Nurse to determine and administer dose, Starting on Mon12/04/23 at 1851, For 2 doses, PACU (only), First dose at least 2 hours after any previous subcutaneous insulin. For glucose less than or equal to 70 mg/dL - initiate treatment of hypoglycemia. , Insulin Aspart: Correction Scale Insulin (For Diabetes Mellitus diagnosis), 71 - 139: 0 units, 140 - 179: 2 units, 180 - 219: 4 units, 220 - 259: 6 units, 260 - 299: 8 units, Greater than or equal to 300: Call anesthesia Given 12/04/2023 7:02 PM CDT 2 Units Right Upper Abdomen metoprolol tartrate tablet 100 mg (LOPRESSOR) 100 mg, oral, 2 times daily, First dose on Mon12/04/23 at 2100 Given 12/05/2023 8:26 AM CDT 100 mg Given 12/04/2023 8:24 PM CDT 100 mg montelukast tablet 10 mg (SINGULAIR) 10 mg, oral, Daily at bedtime, First dose on Mon12/04/23 at 2100 Given 12/04/2023 8:25 PM CDT 10 mg oxyBUTYnin 24 hr tablet 10 mg (DITROPAN-XL) 10 mg, oral, Once, On Mon12/04/23 at 1245, For 1 dose, Pre-Op, PreOp give in preprocedural area. Swallow whole. Do NOT crush, chew, or split tablet. Given 12/04/2023 12:39 PM CDT 10 mg oxyBUTYnin 24 hr tablet 10 mg (DITROPAN-XL) 10 mg, oral, Daily, First dose on Mon12/04/23 at 2000, Swallow whole. Do NOT crush, chew, or split tablet. Given 12/05/2023 8:26 AM CDT 10 mg Given 12/04/2023 8:24 PM CDT 10 mg oxyCODONE 12 hr tablet 10 mg (OxyCONTIN) 10 mg, oral, Once, On Mon12/04/23 at 1245, For 1 dose, Pre-Op, PreOp give in preprocedural area. Swallow whole. Do NOT crush, chew, or split tablet. Given 12/04/2023 12:39 PM CDT 10 mg oxyCODONE IR tablet 10 mg (ROXICODONE) 10 mg, oral, Every 4 hours PRN, severe pain or score 7-10 of 10, May use if patient can take oral meds and other analgesics are ineffective, Starting on Mon12/04/23 at 1939 Given 12/04/2023 11:26 PM CDT 10 mg oxyCODONE IR tablet 5 mg (ROXICODONE) 5 mg, oral, Every 4 hours PRN, moderate pain or score 4-6 of 10, May use if patient can take oral meds and other analgesics are ineffective, Starting on Mon12/04/23 at 1939 polysaccharide spheres particles (MARTA) As needed, Starting on Mon12/04/23 at 1805, Intra-Op Given 12/04/2023 6:05 PM CDT 1 Application Abdominal Tissue sennosides-docusate sodium 8.6-50 mg per tablet 1 tablet (SENOKOT-S) 1 tablet, oral, 2 times daily, First dose on Mon12/04/23 at 2100, Do not give if patient has diarrhea. Given 12/05/2023 8:26 AM CDT 1 tablet Given 12/04/2023 8:25 PM CDT 1 tablet documented in this encounter Active and Recently Administered Medications Times are shown in CDT. Scheduled Medication Order 12/03/2023 12/04/2023 12/05/2023 acetaminophen tablet 1,000 mg (TYLENOL) (COMPLETED) 1,000 mg, oral, Once, On Mon12/04/23 at 1245, For 1 dose, Pre-Op, PreOp give in preprocedural area. 1239 (Given - Provider: Johanna Downing R.N., C.P.A.NPedro) acetaminophen tablet 1,000 mg (TYLENOL) 1,000 mg, oral, Every 6 hours, First dose on Mon12/05/23 at 0100 0045 (Given - Provid er: Deirdre Puri R.N.)0620 (Given - Provider: Deirdre Puri R.N.) atorvastatin tablet 20 mg (LIPITOR) 20 mg, oral, Daily at bedtime, First dose on Mon12/04/23 at 2100 2024 (Given - Provider: Deirdre Puri R.N.) bacitracin 500 unit/gram ointment packet 1 packet 1 packet (1 Application), topical, 3 times daily, First dose on Mon12/04/23 at 2100, Apply to tip of penis. 2023 (Given - Provider: Deirdre Puri R.N.) 08 (Given - Provider: Blanca Linder R.N.) ceFAZolin injection 2,000 mg (ANCEF) (COMPLETED) 2,000 mg (rounded from 2,550 mg = 25 mg/kg ? 102 kg), intravenous, Once, On Mon12/04/23 at 1245, For 1 dose, Intra-Op, Administer within 1 hour prior to surgical incision If needed, reconstitute vial per package insert instructions. See IVAG for administration guidelines., Drug Monitoring Program: Pharmacist to adjust medication dosing based on indication and drug clearance factors., Indications: Prophylaxis, surgical 1351 (Given - Provider: Rob Robertson, ENGINEERING OFFICER, SAP SECURITY ARCHITECT)1644 (Given - Provider: Buck Caldwell, ENGINEERING OFFICER, SAP SECURITY ARCHITECT, DNAP) heparin (porcine) injection 5,000 Units (COMPLETED) 5,000 Units, subcutaneous, Once, On Mon12/04/23 at 1245, For 1 dose, Intra-Op, Administer prior to induction of anesthesia. 1342 (Given - Provider: Rob Robertson APRN, SAP SECURITY ARCHITECT) heparin (porcine) injection 5,000 Units 5,000 Units, subcutaneous, Every 8 hours scheduled, First dose on Mon12/04/23 at 2200 2150 (Given - Provider: Deirdre Puri R.N.) 0620 (Given - Provider: Deirdre Puri R.N.) insulin aspart U-100 injection 0-13 Units (NovoLOG FlexPen) 0-13 Units, subcutaneous, 3 times daily, First dose on Mon12/05/23 at 0800, Insulin Scale: Moderate Correction Scale, 140 - 179: 2 units, 180 - 219: 4 units, 220 - 259: 6 units, 260 - 299: 8 units, 300 - 339: 10 units, 340 - 379: 12 units, 380 - 399: 13 units, Greater than 399: Call service writing Insulin orders 0825 (Given - Provid er: Blanca Linder R.N.) metoprolol tartrate tablet 100 mg (LOPRESSOR) 100 mg, oral, 2 times daily, First dose on Mon12/04/23 at 2099 2023 (Given - Provider: Deirdre Puri R.N.) 0826 (Given - Provider: Blanca Linder R.N.) montelukast tablet 10 mg (SINGULAIR) 10 mg, oral, Daily at bedtime, First dose on Mon12/04/23 at 2099 2024 (Given - Provider: Deirdre Puri R.N.) oxyBUTYnin 24 hr tablet 10 mg (DITROPAN-XL) (COMPLETED) 10 mg, oral, Once, On Mon12/04/23 at 1245, For 1 dose, Pre-Op, PreOp give in preprocedural area. Swallow whole. Do NOT crush, chew, or split tablet. 1239 (Given - Provider: Johanna Downing R.N., C.P.A.N.) oxyBUTYnin 24 hr tablet 10 mg (DITROPAN-XL) 10 mg, oral, Daily, First dose on Mon12/04/23 at 2000, Swallow whole. Do NOT crush, chew, or split tablet. 2023 (Given - Provider: Deirdre Puri R.N.) 08 (Given - Provider: Blanca Linder R.N.) oxyCODONE 12 hr tablet 10 mg (OxyCONTIN) (COMPLETED) 10 mg, oral, Once, On Mon12/04/23 at 1245, For 1 dose, Pre-Op, PreOp give in preprocedural area. Swallow whole. Do NOT crush, chew, or split tablet. 1239 (Given - Provider: Johanna Downing R.N., C.P.A.N.) sennosides-docusate sodium 8.6-50 mg per tablet 1 tablet (SENOKOT-S) 1 tablet, oral, 2 times daily, First dose on Mon12/04/23 at 2100, Do not give if patient has diarrhea. 2024 (Given - Provider: Deirdre Puri R.N.) 825 (Given - Provider: Blanca Linder R.N.) PRN Medication Order 12/03/2023 12/04/2023 12/05/2023 acetaminophen injection 1,000 mg (COMPLETED)(Linked Group 1) 1,000 mg, intravenous, at 400 mL/hr, Administer over 15 Minutes, Once as needed, other, If patient has not received in previous 6 hours, Starting on Mon12/04/23 at 1851, For 1 dose, PACU (only), Oral unless RASS less than -1 or nausea/vomiting. Do not use if given in last 6 hours, Restriction Criteria (Pharmacy will review and approve if criteria met): Unable to take or tolerate medications administered via the enteral route or orally (not just NPO) 1854 (New Bag - Provider: Fausto Springer R.N.) bacitracin 500 unit/gram ointment packet (CANCELED) As needed, Starting on Mon12/04/23 at 1822, Intra-Op 182 (Given - Provider: Bon Tomlinson M.D. - Comment: applied to tip of penis) benzocaine-menthoL 15-3.6 mg per lozenge 1 lozenge (CEPACOL) 1 lozenge, oral, As needed, sore throat, Starting on Mon12/04/23 at 1939 BUPivacaine 0.25 % (2.5 mg/mL) injection (MARCAINE) (CANCELED) As needed, Starting on Mon12/04/23 at 1816, Intra-Op 183 (Given - Provider: Bon Tomlinson M.D.) diphenhydrAMINE capsule 25 mg (BENADRYL) 25 mg, oral, Every 4 hours PRN, itching, Starting on Mon12/04/23 at 1939 haloperidol lactate injection 1 mg (HALDOL) 1 mg, intravenous, Every 6 hours PRN, nausea, vomiting, Starting on Mon12/04/23 at 1939, For 48 hours, Total of 3 doses in 24 hour period. RASS must be -2 or higher to administer. Reassess for nausea or vomiting after at least 10 minutes. If nausea or vomiting persists administer next ordered antiemetic medications (order for antiemetic medication administration ondansetron then haloperidol then prochlorperazine) insulin aspart U-100 injection 0-8 Units (NovoLOG FlexPen) (CANCELED) 0-8 Units, subcutaneous, Every 2 hour PRN, high blood sugar, Nurse to determine and administer dose, Starting on Mon12/04/23 at 1851, For 2 doses, PACU (only), First dose at least 2 hours after any previous subcutaneous insulin. For glucose less than or equal to 70 mg/dL - initiate treatment of hypoglycemia. , Insulin Aspart: Correction Scale Insulin (For Diabetes Mellitus diagnosis), 71 - 139: 0 units, 140 - 179: 2 units, 180 - 219: 4 units, 220 - 259: 6 units, 260 - 299: 8 units, Greater than or equal to 300: Call anesthesia 1901 (Given - Provider: Thompson Springer R.N.) naloxone injection 0.2 mg (NARCAN) 0.2 mg, intravenous, As needed, respiratory depression, Starting on Mon12/04/23 at 1939, For RASS Score -4 or less, respiratory rate of less than 8 breaths/min. Notify provider/service and rapid response team (if available at institution). ondansetron (PF) injection 4 mg (ZOFRAN) 4 mg, intravenous, Every 6 hours PRN, nausea, vomiting, Starting on Mon12/04/23 at 1939, For 48 hours, Reassess for nausea or vomiting after at least 10 minutes. If nausea or vomiting persists administer next ordered antiemetic medications (order for antiemetic medication administration ondansetron then haloperidol then prochlorperazine). oxyCODONE IR tablet 10 mg (ROXICODONE)(Linked Group 2) 10 mg, oral, Every 4 hours PRN, severe pain or score 7-10 of 10, May use if patient can take oral meds and other analgesics are ineffective, Starting on Mon12/04/23 at 1939 2326 (Given - Provider: Deirdre Puri R.N.) oxyCODONE IR tablet 5 mg (ROXICODONE)(Linked Group 2) 5 mg, oral, Every 4 hours PRN, moderate pain or score 4-6 of 10, May use if patient can take oral meds and other analgesics are ineffective, Starting on Mon12/04/23 at 1939 2326 (See Alternative - Provider: Deirdre Puri R.N.) polysaccharide spheres particles (MARTA) (CANCELED) As needed, Starting on Mon12/04/23 at 1805, Intra-Op 1805 (Given - Provider: Bon Tomlinson M.D.) prochlorperazine injection 5 mg (COMPAZINE) 5 mg, intravenous, Every 6 hours PRN, nausea, vomiting, Starting on Mon12/04/23 at 1939, For 48 hours, RASS must be -2 or higher to administer. Reassess for nausea/vomiting after at least 10 minutes. If nausea or vomiting persists administer next ordered antiemetic medications (order for antiemetic medication administration ondansetron then haloperidol then prochlorperazine) Linked Groups Order Group 1: acetaminophen tablet 1,000 mg (TYLENOL) (COMPLETED) 1,000 mg, oral, Once as needed, other, If patient has not received in the previous 6 hours, Starting on Mon12/04/23 at 1851, For 1 dose, PACU (only), Oral unless RASS less than -1 or nausea/vomiting. Do not use if given in last 6 hours Or acetaminophen injection 1,000 mg (COMPLETED)Jump to med 1,000 mg, intravenous, at 400 mL/hr, Administer over 15 Minutes, Once as needed, other, If patient has not received in previous 6 hours, Starting on Mon12/04/23 at 1851, For 1 dose, PACU (only), Oral unless RASS less than -1 or nausea/vomiting. Do not use if given in last 6 hours, Restriction Criteria (Pharmacy will review and approve if criteria met): Unable to take or tolerate medications administered via the enteral route or orally (not just NPO) Group 2: oxyCODONE IR tablet 5 mg (ROXICODONE)Jump to med 5 mg, oral, Every 4 hours PRN, moderate pain or score 4-6 of 10, May use if patient can take oral meds and other analgesics are ineffective, Starting on Mon12/04/23 at 1939 Or oxyCODONE IR tablet 10 mg (ROXICODONE)Jump to med 10 mg, oral, Every 4 hours PRN, severe pain or score 7-10 of 10, May use if patient can take oral meds and other analgesics are ineffective, Starting on Mon12/04/23 at 1939 documented in this encounter
--- OUTSIDE RECORDS SUMMARY | 2024-01-25 07:51 | XMS_ITS | Encounter Summary ---
Author Organization [facility] Address [address] [place] [address] Care Team Providers Care Spiral Weaver Name Role Phone Unavailable Primary Care Provider Unavailabl e Reason for Referral * Outpatient (Routine) - Closed Specialty Diagnoses / Procedures Referred By Hector rivera Referred To Contact Diagnoses Primary Malignant Neoplasm Of Prostate (HCC) Procedures URO Urethral cath removal & voiding trial (UCO/VT) Heber Sebastian M.D. [facility] Referral ID Status Reason Start Date Expiration Date Visits Re quested Visits Authorized [id number] Closed 12/05/2023 12/04/2024 1 1 Reason for Visit * Auth/Cert (Routine) Specialty Diagnoses / Procedures Referred By Hector rivera Referred To Contact Diagnoses Primary Malignant Neoplasm Of Prostate (HCC) Primary Malignant Neoplasm Of Prostate (HCC) [C61] Procedures MD ROBOTIC SURGICAL SYS MD LAP PROSTEC RETROPUBIC RADCL MD LAPROSC BILAT TOT PELV LMPHADEC ROBOTIC-ASSISTED RADICAL PROSTATECTOMY ROBOTIC-ASSISTED DISSECTION LYMPH NODE - PELVIC Referral ID Status Reason Start Date Expiration Date Visits Re quested Visits Authorized [id number] 1 1 Encounter Details Date Type Department Care Team (Latest Contact Info) Description 12/04/2023 10:06 AM CDT - 12/05/2023 11:53 AM CDT Hospital Encounter [facility], Fifth Floor [address] [place] [address] Bobby Tomlinson M.D. [address] [place] [address] Primary Malignant Neoplasm Of Prostate (HCC) (Primary Dx) Discharge Disposition: Home or Self Care Social History Tobacco Use Types Packs/Day Years Used Date Smoking Tobacco: Former Cigarettes 2 30 Passive Smoke Exposure: Past Smokeless Tobacco: Never Passive Exposure Comments:tony scott did smoke when he was growing up. Alcohol Use Standard Drinks/Week Comments Not Currently 0 (1 standard drink = 0.6 oz pur e alcohol) [facility] Utilities Answer Date Recorded In the past 12 months has e [employer], gas, oil, or water [employer] threatened to shut off services in your [...] AM CDT DISCHARGE SUMMARY BRIEF OVERVIEW Hospital: [facility] Discharge Provider: Bobby Tomlinson M.D. Primary Team: T Urology Surgery - [place] No primary care [...] PROSTATECTOMY. Bobby Tomlinson M.D.Martin, Austin J, M.D. [facility] ROEI OR DISCHARGE DISPOSITION Home or Self [...] AM CDT You were discharged from the [facility] Urology Surgery - [facility] Service. Please identify this service name if you call with questions after hospitalization. * Attachments The following attachments cannot be sent through Care Everywhere. * Acetaminophen (By mouth) (Slovenian) * Bacitracin (On the skin) (Slovenian) * Cefdinir (By mouth) (Slovenian) * Polyethylene Glycol 3350 (By mouth) (Slovenian) * Oxybutynin (By mouth) (Slovenian) * Senna (By mouth) (Slovenian) * Tramadol (By mouth) (Slovenian) documented in this encounter Medications at Time [...] 10 mg by mouth daily. LANCETS MISC Use to test blood sugar [...] this encounter Nursing Notes * Delfina Sykes R.RAnju., L.R.T. - 12/04/2023 10:05 PM CDT Patient's home PAP device set up for use with O2 bleed in. Patient is able to manage device independently at this time. Nursing will manage oxygen bleed. 12/04/232204 BPAP/CPAP Therapy Patient's Own Equipment Mask;Tubing;CPAP;Patient able to manage equipment on own;Equipment inspected (per site policy) Ventilator Parameters BPAP/CPAP Mode Per Home Settings O2 Flow Rate 2 L/min documented in this encounter OR Notes * Op Note - Bobby Tomlinson M.D. - 12/04/2023 1:59 PM CDT Pre-op Diagnosis Primary Malignant Neoplasm Of Prostate (HCC) Post-op Diagnosis Primary Malignant Neoplasm Of Prostate (HCC) [place] A first sampler actively participated and was necessary for one [...] LAB POCT ORDERABLES- MANUAL Performing Organization Address City/[facility]/ZIP Co de Phone Number POC [employer] [facility] [address] [place] [address], [facility] PCDE [facility] POC [address] [place] [address] * (ABNORMAL) Glucose, POCT (12/04/2023 7:53 PM CDT) Glucose, POCT, B 183(H) 70 - 140 mg/dL 12/04/2023 7:56 PM CDT PCDE Site Capillary 12/04/2023 7:56 PM CDT PCDE Last Intake > 4 hours 12/04/2023 7:56 PM CDT PCDE Blood 12/04/2023 7:53 PM CDT 12/04/2023 7:56 PM CDT Unknown Provider LAB POCT ORDERABLES- MANUAL Performing Organization Address City/[facility]/ZIP Co de Phone Number [facility]OC [employer] [facility] [address] [place] [address], [facility] PCDE [facility] POC [address] [place] [address] * (ABNORMAL) Glucose, POCT (12/04/2023 7:00 PM CDT) Glucose, POCT, B 164(H) 70 - 140 mg/dL 12/05/2023 6:35 AM CDT PCDE Site Capillary 12/05/2023 6:35 AM CDT PCDE Blood 12/04/2023 7:00 PM CDT 12/05/2023 6:35 AM CDT Unknown Provider LAB POCT ORDERABLES- MANUAL Performing Organization Address City/[facility]/ZIP Co de Phone Number POC [employer] [facility] [address] [place], [place] [id number] [place] [address] PCDE [facility]OC [address] [place] [address] * (ABNORMAL) Glucose, POCT (12/04/2023 5:00 PM CDT) Glucose, POCT, B 169(H) 70 - 140 mg/dL 12/04/2023 5:01 PM CDT PCDE Site Capillary 12/04/2023 5:01 PM CDT PCDE Blood 12/04/2023 5:00 PM CDT 12/04/2023 5:01 PM CDT Unknown Provider LAB POCT ORDERABLES- MANUAL Performing Organization Address City/[facility]/ZIP Co de Phone Number POC [employer] [facility] [address] PCDE [facility] POC [address] [place] [address] * Surgical Pathology, Frozen Lab (12/04/2023 3:55 [...] ??All submitted for permanent sections. ??Grossed by Elida Nation PA([facility]). B. ??Received fresh and placed in formalin labeled prostate is a 52.6 gram, 4.8 (S-I) x 3.6 (A-P) x 4.5 (R-L) cm radical prostatectomy, with nodular hypertrophy. The specimen is inked and the prostatic apex and bladder neck margins are submitted perpendicularly. ??Grossly, there is a 1.4 x 1.2 x 0.8 cm white mass involving the right mid, anterior prostate. ??Surveyor Rod Helper tissue submitted for permanent sections. ??Grossed by Elida Nation PA([facility]). 12/07/2023 [...] SURG PATH ORDERA BLES Performing Organization Address [facility]/ZIP Co de Phone Number [facility] [place] [address] [place] [address], [facility] METH [address] [address] * (ABNORMAL) Glucose, POCT (12/04/2023 2:56 PM CDT) Glucose, POCT, B 150(H) 70 - 140 mg/dL 12/04/2023 2:58 PM CDT PCDE Site Capillary 12/04/2023 2:58 PM CDT PCDE Blood 12/04/2023 2:56 PM CDT 12/04/2023 2:58 PM CDT Unknown Provider LAB POCT ORDERABLES- MANUAL Performing Organization Address [facility] Co de Phone Number POC [employer] [facility] [address] [place] [address], [facility] PCDE [facility]OC [address] [place] [address] * Glucose, POCT (12/04/2023 12:38 PM CDT) Glucose, POCT, B 114 70 - 140 mg/dL 12/04/2023 12:47 PM CDT PCDE Site Capillary 12/04/2023 12:47 PM CDT PCDE Blood 12/04/2023 12:3 8 PM CDT 12/04/2023 12:47 PM CDT Unknown Provider LAB POCT ORDERABLES- MANUAL Performing Organization Address City/[facility]/ZIP Co de Phone Number [facility] [employer] [facility] [address] [place] [address], [facility] PCDE [facility] POC [address] [place] [address] * (ABNORMAL) Glucose, POCT (12/04/2023 10:34 AM CDT) Glucose, POCT, B 156(H) 70 - 140 mg/dL 12/04/2023 10:36 AM CDT PCDE Last Intake 3-4 hours 12/04/2023 10:36 AM CDT PCDE Blood 12/04/2023 10:3 4 AM CDT 12/04/2023 10:36 AM CDT Unknown Provider LAB POCT ORDERABLES- MANUAL [facility] [employer] [facility] [address] [place] [address], [facility] PCDE [facility] [place] POC [address] [place] [address] documented in this encounter Visit Diagnoses Diagnosis Primary Malignant Neoplasm Of Prostate (HCC)- Primary Primary Malignant Neoplasm Of Prostate (HCC) documented [...] Given 12/04/2023 8:24 PM CDT 1 packet heparin (porcine) injection 5,000 Units 5,000 Units, subcutaneous, Every 8 hours scheduled, First dose on Mon12/04/23 at 2200 Given 12/05/2023 6:20 AM CDT 5,000 Units Right Upper Arm (Back) Given 12/04/2023 9:50 PM CDT 5,000 Units [...] are ineffective, Starting on Mon12/04/23 at 1939 sennosides-docusate sodium 8.6-50 mg per tablet 1 [...] (Given - Provider: Johanna Downing R.N., C.P.A.N.) acetaminophen tablet 1,000 mg (TYLENOL) 1,000 mg, [...] 0826 (Given - Provider: Blanca Linder R.N.) ceFAZolin [...] surgical 1351 (Given - Provider: Rob Robertson, CYBER SECURITY ADMINISTRATOR, QA SOFTWARE TESTER)1644 (Given - Provider: Buck Caldwell, CYBER SECURITY ADMINISTRATOR, QA SOFTWARE TESTER, DNAP) heparin (porcine) injection 5,000 Units (COMPLETED) 5,000 Units, subcutaneous, Once, On Mon12/04/23 at 1245, For 1 dose, Intra-Op, Administer prior to induction of anesthesia. 1342 (Given - Provider: Rob Robertson APRN, QA SOFTWARE TESTER) heparin (porcine) injection 5,000 Units 5,000 Units, [...] Do NOT crush, chew, or split tablet. 123 (Given - Provider: Johanna Downing R.N., C.P.A.N.) [...] needed, Starting on Mon12/04/23 at 1822, Intra-Op 1821 (Given - Provider: Bon Tomlinson M.D. - [...]
--- OUTSIDE RECORDS SUMMARY | 2024-01-25 07:51 | XMS_ITS | Referral Summary ---
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 For routine questions regarding patient records, call [phone] during business hours, M-F 8:00 AM - 5:00 PM Central Time. Record requests for emergency care only can be directed to [phone] at any time.[facility] Encounters Date Type Department Care Team Description 01/02/2024 Clinical Communication Department of Urology in [place], [place] [address] [place] [phone] Bobby Tomlinson M.D. 12/21/2023 Orders Only Department of Urology in [place], [place] [address] [place] [phone] Lena Rojas, RYifan. 12/19/2023 8:00 AM CDT Procedure visit Department of Urology in [place], [place] [address] [place] [phone] Fidel Schmid M.D. Gehling, Kelly C, R.N. Primary Malignant Neoplasm Of Prostate (HCC) 12/15/2023 Clinical Communication Department of Urology in [place], [place] [address] [place] [phone] Bobby Tomlinson M.D. 12/12/2023 8:00 AM CDT Procedure visit Department of Urology in [place], [place] [address] [place] [phone] Heber Sebastian M.D. Gehling, Kelly C, R.NPedro Primary Malignant Neoplasm Of Prostate (HCC) 12/07/2023 Documentation Department of Urology in [place], [place] [address] [place] [address] Bobby Tomlinson M.D. 12/04/2023 10:06 AM CDT - 12/05/2023 11:53 AM CDT Hospital Encounter [facility], Fifth Floor [address] [place] [address] Bobby Tomlinson M.D. Primary Malignant Neoplasm Of Prostate (HCC) (Primary Dx) Discharge Disposition: Home or Self Care 12/04/2023 1:28 PM CDT Anesthesia Event T [facility] OR [address] [place] [address] Rayo Davis M.D. Wetzel, David R, M.D. 12/04/2023 1:17 PM CDT - 12/04/2023 6:43 PM CDT Surgery T [facility] OR [address] [place] [address] Bobby Tomlinson M.D. ROBOTIC-ASSISTED RADICAL PROSTATECTOMY. 11/30/2023 6:36 AM CDT - 11/30/2023 11:59 PM CDT Hospital Encounter Department of Laboratory Medicine and Pathology, [facility], in [place], [place] [address] [place] [address] Bobby Tomlinson M.D. Primary Malignant Neoplasm Of Prostate (HCC) Discharge Disposition: Home or Self Care 11/30/2023 1:00 PM CDT Office Visit Department of Urology in [place], [place] [address] [place] [phone] Bobby Tomlinson M.D. Primary Malignant Neoplasm Of Prostate (HCC) (Primary Dx) 11/30/2023 7:30 AM CDT Comprehensive Visit Preoperative Evaluation Center in [place], [place] [address] [place] [address] Bobby Tomlinson M.D. Pauly, Jacob J, Manuela NEGRETE, M.S. Preanesthetic Medical Exam (Primary Dx); Primary Malignant Neoplasm Of Prostate (HCC); Hypertension Essential Primary; Hyperlipidemia; Sleep Apnea; Chronic Obstructive Pulmonary Disease (HCC); Smoking Tobacco Use Personal History; Personal History Of Infectious And Parasitic Disease (COVID-19); Diabetes Mellitus Type 2 With Diabetic Neuropathy (HCC); Restless Leg Syndrome; Overweight Body Mass Index 25-29.9 Adult; Hernia Inguinal Bilateral 11/30/2023 9:00 AM CDT Education Department of Patient Education in [address] [phone] Bobby Tomlinson M.D. Johnson, Kinsley E, R.N. Primary Malignant Neoplasm Of Prostate (HCC) 11/28/2023 1:15 PM CDT Clinical Communication Virtual Review in [address] [phone] Pre-visit Intake 11/13/2023 Orders Only Department of Urology in [address] [phone] Desean Perales MPAS, P.A.-C. 11/13/2023 Clinical Communication Department of Urology in [address] [phone] Desean Perales MPAS, P.A.-C. Med Question 11/06/2023 Orders Only Preoperative Evaluation Center in [address] [phone] Milka Badillo APRN, C.N.P., M.S.N. Preanesthetic Medical Exam (Primary Dx) 11/03/2023 Clinical Communication Department of Urology in [address] [phone] Bobby Tomlinson M.D. 10/31/2023 1:30 PM CDT Comprehensive Visit Department of Urology in [address] [phone] Bobby Tomlinson M.D. Primary Malignant Neoplasm Of Prostate (HCC) 10/31/2023 2:35 PM CDT - 10/31/2023 3:46 PM CDT Hospital Encounter Department of Radiation Oncology in [place], [place] [address] [place] [address] Desean Perales, [facility], [facility]. Ozzy Manzano M.D. Primary Malignant Neoplasm Of Prostate (HCC) (Primary Dx) from Last 3 Months Allergies Active Allergy Reactions Criticality Noted Date [...] Depressive Disorder, R ecurrent, Unspecified 09/30/2008 11/30/2023 Social History Tobacco Use Types Packs/Day Years Used Date Smoking Tobacco: Former Cigarettes 2 30 Passive Smoke Exposure: Past Smokeless Tobacco: Never Tobacco Cessation:Counseling Given: Not Answered Passive Exposure Comments:parents did smoke when he was growing up. Alcohol Use Standard Drinks/Week Comments Not Currently 0 (1 standard drink = 0.6 oz pur e alcohol) [facility] Utilities Answer Date Recorded In the past 12 months has e [employer], gas, oil, or water [employer] threatened to shut off services in your [...] your living situation today? I have a [facility] place to live 12/04/2023 Sex and [...] 12/04/2023 10:30 AM CDT Plan of Treatment Not on file Medical Devices Implanted Type Area Shake Cutter Device Identifier Shelf Expiration Date Model / Serial / Lot Yolanda Hill Lg - [id number] Implanted:Qty: 1 on 12/04/2023 by Bobby Tomlinson M.D. at [facility] Hardware e.g. pins/screws /rods [employer] [id number] 04/25/2028 [id number] / / [id number] Yolanda Hill Md - [id number] Implanted:Qty: 1 on 12/04/2023 by Bobby Tomlinson M.D. at [facility] Hardware e.g. pins/screws /rods Teleflex Narus 07/25/2028 [id number] / / [id number] Clp Hmol Plmr Md - [id number] Implanted:Qty: 1 on 12/04/2023 by Bobby Tomlinson M.D. at [facility] Hardware e.g. pins/screws /rods [employer] [id number] / / [id number] Clp Hmol Plmr Lg - [id number] Implanted:Qty: 1 on 12/04/2023 by Bobby Tomlinson M.D. at [facility] Hardware e.g. pins/screws /rods [employer] [id number] 06/15/2028 [id number] / / [id number] Clp Hmol Plmr Md - [id number] Implanted:Qty: 1 on 12/04/2023 by Bobby Tomlinson M.D. at [facility] Hardware e.g. pins/screws /rods [employer] [id number] / / [id number] Clp Hmol Plmr - [id number] Implanted:Qty: 1 on 12/04/2023 by Bobby Tomlinson M.D. at [facility] Hardware e.g. pins/screws /rods [employer] [id number] / / [id number] Clp Hmol Plmr Lg - [id number] Implanted:Qty: 1 on 12/04/2023 by Bobby Tomlinson M.D. at [facility] Hardware e.g. pins/screws /rods [employer] [id number] 06/15/2028 [id number] / / [id number] Conversions - Default Historical Implant Device Implanted:05/12 (Quantity not on file) Ocular Lens Left: Eye Description:Body Location - Eye L. Device Status Text - OculrLens. Conversions - Default Historical Implant Device Implanted:05/12 (Quantity not on file) Ocular Lens Right: Eye Description:Body Location - Eye R. Device Status Text - OculrLens. Stent Inlay 7fr X 26cm - [id number] Implanted:Qty: 1 on 05/12/2015 Ureteral Stent C.R.Bard Description:Device Manufactu [facility]. Device Status Text - [id number]. Stent Inlay 7fr X 26cm - Reece [id number] Implanted:Qty: 1 on 05/28/2015 Ureteral Stent C.R.Bard Description:Device Manufactu rer [employer] Patient [facility]. Device Status Text - [id number]. Stent Inlay 8fr X 30cm - Reece [id number] Implanted:Qty: 1 on 06/03/2016 Ureteral Stent C.R.Bard Description:Device Manufactu rer [employer] Patient Care [facility]. Device Status Text - [id number]. Explanted Type Area Shake Cutter Device Identifier Shelf Expiration Date Model / Serial / Lot Conversions - Default Historical Implant Device - [id number] Explanted:2016 (Quantity not on file) Ureteral Stent Description:Device Status Te xt - [id number]. Conversions - Default Historical Implant Device - Reece [id number] Explanted:2016 (Quantity not on file) Ureteral Stent Description:Device Status Te xt - [id number]. Procedures Procedure Name Priority Date/Time Associated Diagnosis [...] REFLEX MEASURED LDL Routine 07/04/2023 1:45 PM CLIENT SUCCESS MANAGER CT ABDOMEN PELVIS WITHOUT IV CONTRAST RAD [...] Unknown Provider LAB POCT ORDERABLES- MANUAL POC [facility] [address] [place] [address], [facility] PC[facility] POC [address] [place] [address] * Surgical Pathology, Frozen Lab (12/04/2023 3:55 [...] submitted for permanent sections. ??Grossed by [place].[facility] B. ??Received fresh and placed in formalin labeled prostate is a 52.6 gram, 4.8 (S-I) x 3.6 (A-P) x 4.5 (R-L) cm radical prostatectomy, with nodular hypertrophy. The specimen is inked and the prostatic apex and bladder neck margins are submitted perpendicularly. ??Grossly, there is a 1.4 x 1.2 x 0.8 cm white mass involving the right mid, anterior prostate. ??[employer] tissue submitted for permanent sections. ??Grossed by [employer].H.[place]., [facility] 12/07/2023 5:43 PM CDT METH Block Summary [...] Davy Score ?Grade Group ?Grade Group 2 (Pillager Score 3+4=7) ?Minor Tertiary Pattern 5 (less [...] SURG PATH ORDERA BLES Performing Organization Address City/State/[facility] Co de Phone Number [facility] [address] [place] [address], [facility] METH [address] [place] [address] * LDA ANE ENDOTRACHEAL AIRWAY (12/04/2023 1:38 [...] ETT location: oral VL device: glide scope [place] scope blade size: 4 Tube size: 7.5 [...] CDT) Ventricular Rate ECG/Min 71 BPM MUSE TN Interval 156 ms MUSE QRSD Interval 132 ms MUSE QT Interval 418 ms MUSE QTC Interval 454 ms MUSE P Siren 79 degrees MUSE R Siren -79 degrees MUSE T Wave Siren 29 degrees MUSE 11/30/2023 11:3 7 AM [...] M.D. LAB BLOOD ADD-ON Performing Organization Address City/[facility] Co de Phone Number [facility] [address] [facility] 200 [place] [address] * Prothrombin Time (PT) (11/30/2023 6:51 AM [...] CDT Bobby Tomlinson M.D. LAB BLOOD ADD-ON [facility] 200 [place], [place] [phone] [place] [address] [facility] 200 [place] [address] * CBC without Differential (11/30/2023 6:51 AM [...] M.D. LAB BLOOD ADD-ON Performing Organization Address City/[facility] Co de Phone Number [address] [place] [address] * (ABNORMAL) Hemoglobin A1c (11/30/2023 6:51 AM CDT) [facility] Hemoglobin A1c, B 7.6(H) 4.0 - 5.6 [...] M.D. LAB BLOOD ADD-ON Performing Organization Address City/[facility]/ZIP Co de Phone Number [facility] [address] [place] [address] * (ABNORMAL) Basic Metabolic Panel (11/30/2023 6:51 [...] CDT Bobby Tomlinson M.D. LAB BLOOD ADD-ON [facility] [address] [place] [address], [facility] DTL [facility] [address] [place] [address] from Last 3 Months or Most Recently Relevant to Health Maintenance Advance Directives For more information, please contact: [phone] * Full Code (Latest Code Status on File) Date Activated Date Inactivated Comments 12/04/2023 7:39 PM 12/05/2023 2:03 PM Question Answer Comments Full Code: Discussed * Full Code Date Activated Date Inactivated Comments 12/04/2023 10:21 AM 12/04/2023 7:39 PM Question Answer Comments Full Code: Discussed
--- OUTSIDE RECORDS SUMMARY | 2024-01-25 07:51 | XMS_ITS | Encounter Summary ---
Author Organization [facility] Address [address] [place] [address] Care Team Providers Care Process Treater Name Role Phone Unavailable Primary Care Provider Unavailabl e Reason for Visit * Outpatient (Routine) - Closed Specialty Diagnoses / Procedures Referred By Hector rivera Referred To Contact Urology Bobby Tomlinson M.D. [address] [place] [phone] [facility] Referral ID Status Reason Start Date Expiration Date Visits Re quested Visits Authorized [id number] Closed 11/06/2023 05/07/2025 1 1 Encounter Details Date Type Department Care Team (Late st Contact Info) Description 11/30/2023 1:00 PM CDT Office Visit Department of Urology in [place], [place] [address] [place] [phone] Bobby Tomlinson M.D. [address] [place] [phone] Primary Malignant Neoplasm Of Prostate (HCC) (Primary Dx) Social History Tobacco Use Types Packs/Day Years Used Date Smoking Tobacco: Former Cigarettes 2 30 Passive Smoke Exposure: Past Smokeless Tobacco: Never Passive Exposure Comments:pa rents did smoke when he was growing up. Alcohol Use Standard Drinks/Week Comments Not Currently 0 (1 standard drink = 0.6 oz pur e alcohol) [facility] Utilities Answer Date Recorded In the [...] your living situation today? I have a [facility] place to live 12/04/2023 Sex and Gender Information Value Date Recorded Sex Assigned at Not on file Gender Identity Not on file Sexual Orientation Not on file documented as of this encounter Progress Notes * Bobby Tomlinson M.D. - 11/30/2023 1:00 PM CDT CHIEF COMPLAINT Prostate cancer listing visit HISTORY OF PRESENT ILLNESS Mr. Barney is a pleasant 68 y.o. male who presents today for a listing visit for a robot-assistedradical prostatectomy and lymph node dissection scheduled on December 04, 2023. He is currently scheduled to stay overnight in the hospital 1 night. Brief prostate cancer history: PSA 7.6 ng/mL November 30, 2023 Prostate MRI showed a 31 cc prostate. PI-RADS 4 at the right anterior at apex, PI-RADS 3 left posterior base. No evidence of extracapsular extension, neurovascular bundle invasion, seminal vesicle invasion, lymphadenopathy or suspicious bone lesions. September 19, 2023 MRI transperineal prostate biopsy completed here demonstrated Davy 3+4=7 in 2/2 cores of the region of interest as well as 1 systematic core on the right anterior medial. Large cribriform glands are identified. Most fact cores involved by tumor over 70% of its length. Davy 6 wasalso identified in the left anterior medial. LUTS: Slowed stream and frequency. Erectile function: Normal Anticoagulation: 81 mg aspirin Abdominal surgical history: Laparoscopic-assisted cholecystectomy Ureteroscopy stone extraction x3 Pertinent medical history: Hypertension COPD Sleep apnea Diabetes mellitus type 2 -A1c 7.6 Bilateral inguinal hernias- nonsymptomatic Family history of prostate cancer: Negative ALLERGIES Allergies Allergen Reactions Piperacillin-Tazobactam Hives (Reselect Reaction) and Rash PHYSICAL EXAMINATION General: Well-appearing, in no acute apparent distress. Neurological: Alert and Orientated x3. Psychiatric: Maintained eye contact throughout conversation. Skin: No rashes in the areas I examined. Eyes: Anictric Lungs: Normal respiratory effort upon inspiration. Abdomen: Soft, nondistended. Musculoskeletal: Normal gait noted with ambulation. LABS Lab Results Component Value Date NA 142 11/30/2023 CL 103 11/30/2023 BUN 16 11/30/2023 HGB 14.5 11/30/2023 HCT 43.1 11/30/2023 WBC 8.3 11/30/2023 Lab Results Component Value Date/Time CREATININE 1.20 11/30/2023 06:51 AM CREATININE 1.10 07/04/2023 01:45 PM CREATININE 1.1 09/07/2015 10:44 AM CREATININE 1.0 05/06/2015 08:33 AM IMPRESSION/REPORT/PLAN #1 Adenocarcinoma of the prostate I had a nice discussion with Mr. Barney regarding the characteristics of his cancer and the risks, benefits, rationale, implications and alternatives of the various management options. We reviewed his blood work completed today. He met with our nurses for catheter education. Anesthesia completed a consultation and has noted that he is optimized for the upcoming surgery. We spent the bulk of our time discussing three major options, which include radical prostatectomy, radiation therapy, and active surveillance with delayed curative intent. We discussed the rationale of robotic radical prostatectomy. The concepts of the surgery are removal of the pelvic lymph nodes and prostate, with nerve-sparing as deemed appropriate. These have both diagnostic and therapeutic intent. There are six small incisions and a 2.5 - 4 hour surgery associated with minimal blood loss, an overnight in the hospital, and 1 week of Jose catheterization. Major risks of the surgery are rare but do include bleeding, infection, adjacent organ injury, lymphocele, positive margins, severe pain and standard operative risks such as myocardial infarction, stroke, DVT, pneumonia, PE and even a 0.2% chance of . We also discussed urinary incontinence followingsurgery. Approximately 30-40% of men will have some control of their urination when the catheter is removed, the median time to recovery is approximately 3-4 months but can take up to 12-18 months. Based on our institutional data, approximately 96-98% of men will have excellent control of urinationat one year following surgery. In regards to sexual function, I explained the median time to recovery of functional erections is 6-8 months but can take up to 18 months. At 18 months following surgery, approximately 75% of men with high-quality erections prior to surgery who undergo aggressive bilateral nerve-sparing will have functional erections with or without medical therapy. If some or all of the erectile nerves need to be removed along with the cancer, rates of erectile function drop accor dingly. Following surgery, PSA is expected to remain undetectable but if it does rise there is the possibility of salvage curative radiation therapy, if deemed appropriate. documented in this encounter Plan of Treatment Not on file documented as of this encounter Visit Diagnoses Diagnosis Primary Malignant Neoplasm Of Prostate (HCC)- Primary documented in this encounter
--- OUTSIDE RECORDS SUMMARY | 2024-01-25 07:51 | XMS_ITS | Encounter Summary ---
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 in [place], [place] [address] [place] [address] Bobby Tomlinson M.D. [address] [place] [phone] Primary Malignant Neoplasm Of Prostate (HCC) Discharge Disposition: Home or Self Care Social [...] on file documented as of this encounter Medications at Time of Discharge Medication Sig Dispensed Refills Start Date End Date acetaminophen (TYLENOL) 500 mg tablet Take 2 tablets (1,000 mg total) by mouth every 6 (six) hours. 80 tablet 1 12/05/2023 amLODIPine-olmesarta n (DIVINE) 5-20 mg per tablet Take 1 [...] tablet 1 12/05/2023 traMADoL (ULTRAM) 50 mg tabletIndications:Ac [place] Pain Take 1 tablet (50 mg total) [...] pm after removal). 2 capsule 12/05/2023 12/06/[address] tablet Take 81 mg by mouth daily. 12/04/2023 bacitracin 500 unit/gram ointment Apply 1 Application topically 2 (two) times a day. Apply to the head of the penis while catheter was in place. 28 g 12/05/2023 12/05/2023 oxyBUTYnin (DITROPAN-XL) 10 mg 24 hr tablet Take 1 tablet (10 mg total) by mouth at bedtime for 9 days. Do not take within 24 hours of catheter removal. 9 tablet 12/05/2023 12/12/2023 tamsulosin (FLOMAX) 0.4 mg 24 hr capsule Take 1 capsule (0.4 mg total) by mouth daily. 30 capsule 11/13/2023 12/05/2023 documented as of this encounter Plan of Treatment Not on file documented as of this encounter Procedures Procedure Name Priority Date/Time Associated Diagnosis Comments ACTIVATED PARTIAL THROMBOPLASTIN TIME (APTT), P Routine 11/30/2023 6:51 AM CDT Primary Malignant Neoplasm Of Prostate (HCC) PROTHROMBIN TIME (PT), P Routine 11/30/2023 6:51 AM CDT Primary Malignant Neoplasm Of Prostate (HCC) CBC WITHOUT DIFFERENTIAL, B Routine 11/30/2023 6:51 AM CDT Primary Malignant Neoplasm Of Prostate (HCC) HEMOGLOBIN A1C, B Routine 11/30/2023 6:5 1 AM CDT Primary Malignant Neoplasm Of Prostate (HCC) BASIC METABOLIC PANEL, S/P Routine 11/30/2023 6:51 AM CDT Primary Malignant Neoplasm Of Prostate (HCC) documented in this encounter Results * (ABNORMAL) Hemoglobin A1c (11/30/2023 6:51 AM [...] M.D. LAB BLOOD ADD-ON Performing Organization Address City/[facility] Co de Phone Number [address] [place] [address] * Prothrombin Time (PT) (11/30/2023 6:51 AM CDT) Pathologist [facility] Prothrombin Time, P 10.6 9.4 - 12.5 sec 11/30/2023 7:34 AM CDT DTL INR 1.0 0.9 - 1.1 11/30/2023 7:34 AM CDT DTL Comment: ----ADDITIONAL INFORMATION---- Standard intensity warfarin therapeutic range: 2.0 to 3.0 ?? High intensity warfarin therapeutic range: 2.5 to 3.5 Blood (Blood, Venous) 11/30/2023 6:51 AM CDT 11/30/2023 7:15 AM CDT Bobby Tomlinson M.D. LAB BLOOD ADD-ON Performing Organization Address City/[facility]/ZIP Co de Phone Number [address] [address], [facility] [place] [address] * CBC without Differential (11/30/2023 6:51 AM [...] CDT Bobby Tomlinson M.D. LAB BLOOD ADD-ON [facility] [place] [address] [place] [address], [facility] [place] [address] * (ABNORMAL) Basic Metabolic Panel (11/30/2023 6:51 [...] CDT Bobby Tomlinson M.D. LAB BLOOD ADD-ON [facility] 200 [place] [address], [facility] [address] [address] * APTT (Activated Partial Thromboplastin Time) (11/30/2023 6:51 AM CDT) Activated Partial Thrombopl Time, P 36 25 - 37 sec 11/30/2023 7:34 AM CDT DTL Blood (Blood, Venous) 11/30/2023 6:51 AM CDT 11/30/2023 7:15 AM CDT Bobby Tomlinson M.D. LAB BLOOD ADD-ON [facility] 200 [place] [address], [facility] [address] [address] documented in this encounter Visit Diagnoses Diagnosis Primary Malignant Neoplasm Of Prostate (HCC) documented in this encounter
--- OUTSIDE RECORDS SUMMARY | 2024-01-25 07:51 | XMS_ITS | Encounter Summary ---
Author Organization [facility] Address [address] [place] [address] Care Team Providers Care Secretary Office Clerk Name Role Phone Unavailable Primary Care Provider Unavailabl e Encounter Details Date Type Department Care Team (Late st Contact Info) Description 12/15/2023 Clinical Communication Department of Urology in [place], [place] [address] [place] [phone] Bobby Tomlinson M.D. [address] [place] [phone] Social History Tobacco Use Types Packs/Day Years Used Date Smoking Tobacco: Former Cigarettes 2 30 Passive Smoke Exposure: Past Smokeless Tobacco: Never Passive Exposure Comments:tony renyolanda did smoke when he was growing up. Alcohol Use Standard Drinks/Week Comments Not Currently 0 (1 standard drink = 0.6 oz pur e alcohol) [facility] Utilities Answer Date Recorded In the past 12 months has [facility] [employer], gas, oil, or water [employer] threatened to shut off services in your [...] your living situation today? [facility] a [facility] 12/04/2023 Sex and Gender Information Value Date Recorded Sex Assigned at Not on file Gender Identity Not on file Sexual Orientation Not on file documented as of this encounter Miscellaneous Notes * Telephone Encounter - Kaylynn Roman, R.N. - 12/18/2023 4:03 PM CDT SUBJECTIVE CHIEF COMPLAINT / REASON FOR CALL No chief complaint on file. PLAN The following information was provided: I spoke with Mr. Barney regarding his upcoming catheter removal appointment for December 19, 2023. He reports having light T to peyman colored urine. He notes that occasionally when sitting at the toilethe will have pressure and leak outside of the catheter. During this time he occasionally experiences bright echavarria blood which resolves back to the peyman. We discussed that this is very normal and itwould be reasonable to remove his catheter tomorrow if this continues. I encouraged him to continuepushing fluids. All questions are answered at this time. Information/Education: patient/caller able to teach back The following references were used: nursing clinical judgement * Telephone Encounter - Kaylynn Roman R.N. - 12/15/2023 3:23 PM CDT SUBJECTIVE CHIEF COMPLAINT / REASON FOR CALL No chief complaint on file. ASSESSMENT He continues to experience hematuria since his prostatectomy. He has periods where the urine is clear and then it will change to peyman or dark red. There are small clots in the bag. The catheter is draining well. He denies any fever, chills, low back pain. He reports loose bowel movements, he is taking a stool softener every other day. He reports discomfort in the perineum. PLAN I encouraged him to continue pushing fluids and monitoring. He will call Monday to report if the urine is mostly bloody. Disposition/Recommendation: recommended continue engagement in self-management activities. Information/Education: patient/caller able to teach back. Caller agreeable to plan of care: yes. The following references were used: nursing clinical judgement. documented in this encounter Plan of Treatment Not on file documented as of this encounter Visit Diagnoses Not on filedocumented in this encounter
--- OUTSIDE RECORDS SUMMARY | 2024-01-25 07:51 | XMS_ITS ---
Author Organization [facility] Address [address] [place] [address] Care Team Providers Care Rubber Press Tender Name Role Phone Unavailable Unavailable Unavailable Surgery Details Not on file Complications Check Surgery Details section. Procedure Estimated Blood Loss Check Surgery Details section. Procedure Findings Check Surgery Details section. Procedure Specimens Taken Check Surgery Details section.
--- OUTSIDE RECORDS SUMMARY | 2024-01-25 07:51 | XMS_ITS | Encounter Summary ---
Author Organization [facility] Address [address] [place] [address] Care Team Providers Care Fitness Coach Name Role Phone Unavailable Primary Care Provider Unavailabl e Encounter Details Date Type Department Care Team (Late st Contact Info) Description 12/21/2023 Orders Only Department of Urology in [place], [place] [address] [place] [phone] Lena Rojas, RPedroNPedro [address] [place] [address] Social History Tobacco Use Types Packs/Day Years Used Date Smoking Tobacco: Former Cigarettes 2 30 Passive Smoke Exposure: Past Smokeless Tobacco: Never Passive Exposure Comments:tony renyolanda did smoke when he was growing up. Alcohol Use Standard Drinks/Week Comments Not Currently 0 (1 standard drink = 0.6 oz pur e alcohol) [facility] Utilities Answer Date Recorded In the past 12 months has [facility] [employer], gas, oil, or water [employer] threatened to shut off services in your [...] your living situation today? I have a [facility] place to live 12/04/2023 Sex and Gender Information Value Date Recorded Sex Assigned at Not on file Gender Identity Not on file Sexual Orientation Not on file documented as of this encounter Plan of Treatment Not on file documented as of this encounter Visit Diagnoses Not on filedocumented in this encounter
--- OUTSIDE RECORDS SUMMARY | 2024-01-25 07:51 | XMS_ITS | Encounter Summary ---
Author Organization [facility] Address [address] [place] [address] Care Team Providers Care Mail Handler Assistant Name Role Phone Unavailable Primary Care Provider Unavailabl e Encounter Details Date Type Department Care Team (Late st Contact Info) Description 01/02/2024 Clinical Communication Department of Urology in [place], [place] [address] [place] [phone] Bobby Tomlinson M.D. [address] [place] [phone] Social History Tobacco Use Types Packs/Day Years Used Date Smoking Tobacco: Former Cigarettes 2 30 Passive Smoke Exposure: Past Smokeless Tobacco: Never Passive Exposure Comments:tony renyolanda did smoke when he was growing up. Alcohol Use Standard Drinks/Week Comments Not Currently 0 (1 standard drink = 0.6 oz pur e alcohol) [facility] Utilities Answer Date Recorded In the past 12 months has [facility] [employer], gas, oil, or water [employer] threatened to shut off services in your [...] your living situation today? I have a [facility] place to live 12/04/2023 Sex and Gender Information Value Date Recorded Sex Assigned at Not on file Gender Identity Not on file Sexual Orientation Not on file documented as of this encounter Miscellaneous Notes * Telephone Encounter - Bobby Tomlinson M.D. - 01/02/2024 8:41 PM CDT Spoke He will keep me posted * Telephone Encounter - Bessie Marie R.N. - 01/02/2024 4:28 PM CDT SUBJECTIVE CHIEF COMPLAINT / REASON FOR CALL No chief complaint on file. Information Discussed I spoke with Mr. Barney, he is s/p RARP from 12/[address] Tomlinson. He calls in today with a continue pain in his leg post-surgery. This is on his right leg from the thigh to the groin. No bruising, warm to touch or fever. No change to his breathing and no shortness of breath. Outside of this no other symptoms. I will send a message to Dr. Tomlinson's team for recommendations and next steps. In the meantime, if patient wereto develop a severe onset of shortness of breath or a change in symptoms I've asked him to report to his local ED. PLAN Disposition/Recommendation: notified provider and awaiting recommendations Information/Education: patient/caller able to teach back Caller agreeable to plan of care: yes The following references were used: nursing clinical judgement documented in this encounter Plan of Treatment Not on file documented as of this encounter Visit Diagnoses Not on filedocumented in this encounter
--- OUTSIDE RECORDS SUMMARY | 2024-01-25 07:52 | XMS_ITS | Encounter Summary ---
Author Organization [facility] Address [address] [place] [address] Care Team Providers Care Manager Gas Name Role Phone Unavailable Primary Care Provider Unavailabl e Reason for Visit * Reason Onset Date Comments Pre-visit Intake 11/28/2023 Encounter Details Date Type Department Care Team (Latest Contact Info) Description 11/28/2023 1:15 PM CDT Clinical Communication Virtual Review in [place], [place] 200 [place] [phone] Pre-visit Intake Social History Tobacco Use Types Packs/Day Years Used Date Smoking Tobacco: Former Cigarettes 2 30 Passive Smoke Exposure: Past Smokeless Tobacco: Never Tobacco Cessation:Counseling Given: Not Answered Passive Exposure Comments:parents did smoke when he was growing up. Nutrition Answer Date Recorded Nutrition: EVOO Fat [...]
--- OUTSIDE RECORDS SUMMARY | 2024-01-25 07:52 | XMS_ITS | Encounter Summary ---
Author Organization [facility] Address [address] [place] [address] Care Team Providers Care Pets Salesperson Name Role Phone Unavailable Primary Care Provider Unavailabl e Reason for Referral * Outpatient (Routine) - Closed Specialty Diagnoses / Procedures Referred By Boogieac t Referred To Contact Radiation Oncology Diagnoses Primary Malignant Neoplasm Of Prostate (HCC) Desean Perales [place] [phone] [facility] Referral ID Status Reason Start Date Expiration Date Visits Re quested Visits Authorized [id number] Closed 09/28/2023 03/29/2025 1 1 Reason for Visit * Outpatient (Routine) - Closed Specialty Diagnoses / Procedures Referred By Contac miguel Referred To Contact Radiation Oncology Diagnoses Primary Malignant Neoplasm Of Prostate (HCC) Desean Perales MPAS, P.A.-C. [address] [place] [phone] [facility] Referral ID Status Reason Start Date Expiration Date Visits Re quested Visits Authorized [id number] Closed 09/28/2023 03/29/2025 1 1 Encounter Details Date Type Department Care Team (Latest Contact Info) Description 10/31/2023 2:35 PM CDT - 10/31/2023 3:46 PM CDT Hospital Encounter Department of Radiation Oncology in [place], [place] [address] [place] [address] Desean Perales MPAS, P.A.-C. 200 [place] [phone] Ozzy Manzano M.D. 200 [place] [phone] Primary Malignant Neoplasm Of Prostate (HCC) (Primary [...] Sign Reading Time Taken Comments Blood Pressure - - Pulse - - Temperature - - Respiratory Rate - - Oxygen Saturation - - Inhaled Oxygen Concentration - - Weight 102 kg (224 lb 10.4 oz) 10/31/2023 2:42 P M CDT Height - - Body Mass Index 30.97 03/17/2017 7:25 AM CDT documented in this encounter Medications at Time of Discharge Medication Sig Dispensed Refills Start Date End Date amLODIPine-olmesartan (DIVINE) 5-20 mg per tablet Take 1 tablet by mouth daily. 04/08/2023 atorvastatin (LIPITOR) 20 mg tablet Take 20 mg by mouth at bedtime. 03/16/2017 blood sugar diagnostic strips (Blood Glucose Test [...] 1 tablet by mouth every morning. 03/16/2017 UNABLE TO FIND Use to test blood sugar one times daily or as directed. 03/21/[address] tablet Take 81 mg by mouth daily. 11/28/2023 tamsulosin (FLOMAX) 0.4 mg 24 hr capsule Take 0.4 mg by mouth. 04/13/2023 11/13/2023 tamsulosin (FLOMAX) 0.4 mg 24 hr capsule Take 2 capsules (0.8 mg total) by mouth daily. 60 capsule 2 09/28/2023 11/30/2023 documented as of this encounter Consult Notes * Mohsen Bright, CADEN, C.N.P., D.N.P. - 10/31/2023 3:00 PM CDT RADIATION ONCOLOGY Consultation Note REFERRING PROVIDER: Desean Perales MPAS, P.A.-C. Collaborating Chief Librarian Branch: Dr. Yayo Manzano M.D. SUBJECTIVE HISTORY OF PRESENT ILLNESS Mr. Matt Barney a 68 y.o. male from [facility] [phone] presents today to discuss prostate cancer management. The prostate cancer history includes: Oncology History Overview Note NCCN FAVORABLE INTERMEDIATE RISK with clinical T1c (T2c on MRI] N0 M0 prostate adenocarcinoma, Davy 3+4 with 3/16 (18.8%) core biopsies positive, and a PSA of 5.9 ng/mL. Confined MRI STAR CAP: 10-year prostate cancer mortality risk after prostatectomy or radiotherapy [2%]. Primary Malignant Neoplasm Of Prostate (HCC) 04/20/2023 Biopsy/Pathology PSA: 5.9 (03/01/2023). Normal prostate examination (cT1c). Outside prostate biopsy revealed adenocarcinoma Davy 3+3 in right lateral apex (1/6 cores; 5%) ;benign prostatic tissue in left side; TRUSvolume = 39.2 cc. 06/06/2023 Genetic Testing and Tumor Genotyping Decipher Score: 0.24 (LOW). 5-Year (0.3%) & 10-Year (0.7%) risk of metastasis with radiotherapyor prostatectomy; 15-year risk (0.8%) of prostate cancer mortality after prostatectomy or radiotherapy; risk of adverse pathology (12.2%) at prostatectomy. 07/31/2023 - 07/31/2023 Plan Urology Surgery (TONY Browning): moderate urinary symptoms - on tamsulosin. 09/11/2023 Critical Imaging MRI prostate showed PI-RADS 4 lesion in right anterior apical peripheral zone (1.2 x 0.6 x 0.6 cm; 0.29 cc); PI-RADS 3 lesion in left posterior base peripheral zone (1.2 x 0.3 x 0.6 cm; 0.17 cc); no other abnormalities; 31 cc volume. 09/19/2023 Biopsy/Pathology Normal prostate examination (cT1c). MRI-fusion transperineal prostate biopsy [3/16 positive cores] revealed adenocarcinoma Bernice 3+4 in right side (1/7 systematic cores; 70%; large cribriform glands present); 3+4 in right anterior apex - GOMEZ#1 (2/2 target cores; 50%); 3+3 in left side (1/7 systematic cores; 10%); benign prostatic tissue in left posterior base - GOMEZ#2 (0/1 target cores); TRUS volume = 44.6. 09/19/2023 Clinical Stage Staging form: Prostate, AJCC 8th Edition - Clinical stage from 09/19/2023: Stage IIB (cT1c, cN0, cM0,PSA: 5.9, Grade Group: 2) 10/31/2023 - 10/31/2023 Plan Urology Surgery - prostatectomy option (Dr. Bushra MD). Radiation Oncology - radiotherapy options (Dr. Natacha MD). Radiation Screening Questions: Prior Radiation therapy: None Medical Devices: None Anticoagulation: 81 MG ASPIRIN Hip Replacements: None Urologic Procedures: None Gastrointestinal Syndromes: None Connective Tissue Diseases: None Cardiovascular Disease: None REVIEW OF OTHER MEDICAL HISTORY The following portions of the patient's history were reviewed and updated as appropriate: allergies, current medications, medical history, surgical history, problem list, labs; imaging, pathology, and oncology history (independently and/or reviewed with Radiation Oncologist). Past Medical History: Diagnosis Date Chronic Obstructive Pulmonary Disease (HCC) Depression Diabetes Mellitus Type 2 (HCC) Hyperlipidemia Hypertension NOS Recreational Counselor Use Of Aspirin Active 81 mg Primary Malignant Neoplasm Of Prostate (HCC) Stone Kidney Personal History Past Surgical History: Procedure Laterality Date BIOPSY TRANSPERINEAL PROSTATE CATARACT EXTRACTION CYSTOSCOPY N/A 05/12/2015 Cystoscopy CYSTOSCOPY N/A 06/03/2016 Cystoscopy CYSTOSCOPY N/A 05/28/2015 Cystoscopy LAPAROSCOPIC ASSISTED - CHOLECYSTECTOMY N/A 03/17/2017 Laparoscopic assisted - Cholecystectomy RETROGRADE PYELOGRAM Left 05/12/2015 Retrograde Pyelogram RETROGRADE PYELOGRAM Right 06/03/2016 Retrograde Pyelogram RETROGRADE PYELOGRAM Left 05/28/2015 Retrograde Pyelogram TONSILLECTOMY URETERAL STENT EXCHANGE Left 05/28/2015 Ureteral stent exchange URETERAL STENT PLACEMENT Left 05/12/2015 Ureteral stent placement Notes: ureteral dilation URETERAL STENT PLACEMENT Right 06/03/2016 Ureteral stent placement Notes: on dangle URETEROSCOPIC LASER LITHOTRIPSY Left 05/28/2015 Ureteroscopic laser lithotripsy URETEROSCOPIC STONE EXTRACTION Right 06/03/2016 Ureteroscopic stone extraction Notes: no laser needed URETEROSCOPIC STONE EXTRACTION Left 05/28/2015 Ureteroscopic stone extraction VASECTOMY REVIEW OF SYSTEMS Constitutional: Denied fatigue or pain I-PSS I-PSS Urinary Symptoms Score: 9 I-PSS Quality of Life Score: 3 : UROLOGIC MEDICATION(S): Tamsulosin. Steady flow. Nocturia x1-2. Denied daytime frequency, urgency, hesitation, retention, incontinence, dysuria, or hematuria. Diminished erections. IIEF: ErectileFunction Domain: 10 (10/31/23 6135). GI: Once or twice weekly bowel movements. Denied dyschezia or hematochezia. Genitourinary malignancies: None. 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 General: Mr. Barney is seated in the examination room in no acute distress. Genitourinary: Prostate examination deferred. ECO - asymptomatic. Assessment Diagnosis Plan 1. Primary Malignant Neoplasm Of Prostate (HCC) Radiation Oncology - consult (clinic) Radiation Oncology - consult (clinic) Mr. Matt Barney a 68 y.o. male with NCCN favorable intermediate-risk prostate cancer, Davy score 3+4 = 7 , iPSA 5.9 ng/mL. Consultation regarding radiotherapy management of intact prostate cancer in the definitive setting. Independently reviewed imaging and discussed case with Dr. Yayo Manzano M.D.. Discussed clinical context, nature of prostate cancer, benefits/harms of treatment, and rationale for treatment with Mr. Matt Barney. Reviewed management options including prostatectomy or radiotherapy according to NCCN Guidelines. Discussed no androgen suppression therapy (AST). Radiotherapy options include: daily external beam radiotherapy treatments, every other day stereotactic body radiotherapy , or low-dose rate (LDR) (one session) brachytherapy. Discussed delivery distinction between photon and proton external beam therapy (EBRT). Outlined process for brachytherapy and/or EBRT. Counseled on common EARLY [mild fatigue; bladder & bowel irritation] / possible LATE [bladder & bowel irritation; unlikely urethral stricture; unlikely urinary & rectal bleeding; rare bladder & rectal damage; possible erectile dysfunction; rare secondary malignancy risk] adverse effects related to radiotherapy. Counseled on common AST adverse effects [hot flashes; fatigue; erectile dysfunction; possible genital atrophy; possible decreased bone density & muscle mass]; handouts given. Recommended calcium (600 mg in morning; 600 mg in evening) + vitamin D3 (1000 International Units) daily supplementation for bone health if AST is utilized. RECOMMENDATIONS Proton stereotactic ablative body radiotherapy (SBRT) to 36-40 Gy in five treatments delivered every other day to the prostate . No AST. Preparation before EBRT includes: Intraprostatic fiducial marker placement and hydrogel spacer placement -RONY. Reviewed CT-based simulation planning session with MRI planning imaging; booklet given. Plan Mr. Matt Barney will take time for treatment decision: will notify Urology for prostatectomy option (patient preference) or Radiation Oncology for radiotherapy option. Addressed questions accordingly. Advised to call Radiation Oncology with questions and/or concerns. PATIENT EDUCATION materials include: An introduction to Radiation Simulation and Treatment [[id number]] About Your Prostate Gland Marker Placement [[id number]] Hydrogel Spacer Prior to Prostate Cancer Radiation Therapy [[id number]] BILLING: I spent 60 minutes face to face and non-face to face caring for the patient today. Associated attestation - Ozzy Manzano M.D. - 10/31/2023 3:53 PM CDT This patient was seen in conjunction with Mohsen Bright APRN, C.N.P, Arnulfo.N.P.. I agree with the documentation, findings, and recommendations in the associated note. Mr. Barney is a 68 years old man with prostate carcinoma. His other medical history includes type 2 diabetes mellitus, hyperlipidemia, hypertension, gout, anxiety, neuropathy, COPD, kidney stone, and laparoscopic cholecystectomy. His PSA was 5.9 on 03/01/2023. He had a prostate biopsy on 04/20/2023. This revealed Bernice score 3+3 adenocarcinoma in the right lateral apex ( 1 core, 5% of specimen). All other cores were negative for malignancy. His Decipher score was 0.24, low risk. He elected to have active surveillance. He had MRI prostate on 09/11/2023. On the MRI, his prostate volume was 31 cc. There was a PI-RADS 4lesion, measuring 1.2 x 0.6 x 0.6 cm, in the right anterior peripheral zone at apex. There was a PI-RADS 3 lesion, measuring 1.2 x 0.3 x 0.6 cm, in the left posterior peripheral zone at base. There was no extracapsular tumor extension or seminal vesicle involvement. There was no suspicious pelvic lymphadenopathy or bone metastasis in the visualized bones. On 09/19/2023, he had a transperineal, MRfusion, prostate biopsy. The biopsy of the target lesion in the right anterior at apex revealed adenocarcinoma with Davy score 3+4, involving 2 of 2 cores and the most affected core involved by tumor over 70% of its length. The biopsy of the target lesion in the left posterior at base was negative for malignancy. The systemic biopsy of the right lobe revealed adenocarcinoma with Bernice score 3+4, involving 1 of 7 cores (right anterior medial). The systemic biopsy of the left lobe revealed ad enocarcinoma with Bernice score 3+3, involving 1 of 7 cores (left anterior medial). Clinically he has T2a (or possibly T2c, based on MRI prostate) prostate adenocarcinoma with Gleasonscore 3+4 and PSA of 5.9. We discussed his clinical situation including the pathologic finding. We also discussed management options which include surgery and radiotherapy. We explained the pros and cons of surgery versus radiotherapy. In the radiotherapy setting, options are: 1. IMRT or proton beam therapy with 5- or 20-fraction regimen +/- 4 months of androgen deprivation therapy, 2. Brachytherapy +/- 4 months of androgen deprivation therapy. We explained in detail alternative, nature, benefit, and potential side effects of various treatment modalities of radiotherapy. We also explained the rationale and potential side effects of adding short-term androgen deprivation therapy. Given that the Decipher score of his initial prostate biopsy was low risk, I feel that it is reasonable to not add short-term androgen deprivation therapy in the radiotherapy setting. Following the above discussion, he decided to pursue surgery for his prostate carcinoma. He will contact Urology service for future follow-up arrangement. documented in this encounter Plan of Treatment Scheduled Referrals Name Type Priority Associated Diagnoses Order Schedule Radiation Oncology - consult (clinic) Outpatient Referral Routine Primary Malignant Neoplasm Of Prostate (HCC) Once for 1 Occurrences starting 10/31/2023 until 10/31/2023 documented as of this encounter Visit Diagnoses Diagnosis Primary Malignant Neoplasm Of Prostate (HCC)- Primary documented in this encounter
--- OUTSIDE RECORDS SUMMARY | 2024-01-25 07:52 | XMS_ITS | Data Portability ---
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 Not available 06/01/2023 23:57:43 Plan of Treatment Reminders Order Date Submit Date Provider Last Modified By Organization Details Last Modified Time Details Appointments None recorded. Lab biopsy, prostate - PSA 5.[address] [facility], [address], [place] [address], [address], 3 15:06:01 PSA, total, serum or plasma [address] [facility], [address] [place], [address], 4 10:23:41 biopsy, prostate 2022 023 [facility], [address], [place] [address], [place], [address], 3 09:28:31 PSA, total, serum or plasma [address] [facility], [address] [place], [address], 4 10:23:41 Referral None recorded. Procedures None recorded. Surgeries None recorded. Imaging MRI, prostate, w/wo contrast - due November 20232022 023 [email or web address] [facility], [address] [place], [address], 4 10:42:36 Medication Orders levofloxaci n 500 mg tablet 2022 023 [id number], [address] [place], [address], 3 12:45:57 Flomax 0.4 mg capsule 2022 023 [id number], [address] [place], [address], 3 10:47:05 ceftriaxone 1 gram solution for injection 2022 023 [id number], [address] [place], [address], 3 12:45:50 Patient TargetsNo targets recorded. Patient Instructions Encounter Date Encounter Id Patient Instructions Last Modified By Organization Details Last Modified Time 04/13/2023 [id number] BPH/weak stream: Discussed options including medications, catheters, and procedures. Will start with Flomax (tamsulosin). Discussed the side effects of Flomax including dizziness (recommended to take around bedtime) and retrograde ejaculation (little or no semen with an orgasm as it goes back into the bladder which is not a health issue as it comes out at the next urination). Elevated PSA: I recommend a prostate biopsy. Risks and benefits were discussed. Discussed prostate MRI. Will proceed with a biopsy. TRUS Prostate Biopsy Risks Risks, benefits, and some of the potential complications of a transrectal ultrasounds of the prostate (TRUSP) with biopsies were discussed at length with the patient including gross hematuria, blood in the bowel movements, hematospermia, bacteremia/sepsis (<1% risk when antibiotics are given pre-procedure), infection, voiding discomfort, urinary retention, fever, chills, blood transfusion, , and others. Anticoagulation would need to be stopped prior to the procedure. A 1-day antibiotic prescription was sent to his pharmacy to start on the day of the biopsy. All questions were answered. Not available 04/13/2023 10:53:42 04/20/2023 [id number] Post-prostate biopsy protocol. Can expect blood in the urine, stool, and semen. If taking an aspirin, wait until there is no blood in the stool and urine for 24 hours before restarting. Discussed that if, within the first 3-4 days after the biopsy, he has fevers, chills, nausea, vomiting, rigors (shakes), unable to void, or not feeling well, that he should go to the nearest ER for evaluation. I will call him with results. Not available 04/19/2023 21:56:41 06/01/2023 [id number] Prostate Cancer: Pathology: Adenocarcinoma of the prostate Clinical Stage: [id number] Davy Grade Group: 1 National Comprehensive Cancer Network Risk Category: Very Low Risk I had a long conversation with the patient regarding his diagnosis and its implications. We discussed the natural history of prostate cancer. In its early stages prostate cancer is often asymptomatic. While many prostate cancers may behave in an indolent fashion, some men may develop more aggressive disease. This may put those men at risk for local symptoms, regional spread, or metastatic disease. We then discussed the treatment options for prostate cancer and their various risks and benefits. First we discussed active surveillance. We discussed that this is typically utilized in men with very low-risk and low-risk prostate cancer, but also has a role in select men with favorable intermediate risk disease. This allows for close monitoring for disease progression with the intent to proceed with active treatment when the risk of metastatic disease arises (very low and low risk patients) or when the risk of metastatic disease becomes unacceptably high (favorable intermediate risk disease). We did discuss that these patients run the risk of development of metastatic disease despite surveillance and this can be difficult to predict. We discussed the role of adjunctive testing (ie Decipher) to help provide further risk stratification if he desires. We then discussed the role of focal therapies, radiation therapy in its various forms, and surgical management in the form of radical prostatectomy. We discussed the value of definitive therapy at this stage including the relative survival benefit against surveillance and the potential risks as well as treatment related side effects. My strong recommendation is that he pursue active surveillance given his very low risk disease. We agreed to obtain Decipher testing to have a better understanding of his tumor biology and hopefully better predict its behavior over time. He will undergo an MRI of the prostate in 6 months as this has not yet been done. We will also see each other at that time with a repeat prostate specific antigen. Benign prostatic hyperplasia with lower urinary tract symptoms: His symptoms are slightly improved on medical therapy. Continue tamsulosin 0.4 mg daily. If he is not showing sustained benefit we will obtain a Urocuff study at his next visit and if he shows obstruction we can consider cystoscopy and transrectal ultrasound sizing if he desires more aggressive therapy. Nephrolithiasis: No recurrence. Not available 06/02/2023 00:01:32 Reason for Referral None Reported. Results Created Date Observation Date Name Description Value Unit Range Abnormal Flag LastModifiedBy Organization Detail LastModifiedTime 04/24/2004/20/2023 US, prost ate No observ ation record ed. [email or web address] Not Available 04/24/20 09:01:04 Result Notes None recorded. Problems Name Status Onset Date Resolution Date Notes Provider Name and Address Organization Details Recorded Time Slowing of urinary stream Active 04/13/20 Abel Daugherty MD [address] [place] [address],[address], [address] , [facility] 04/13/2023 10:46:43 Lower urinary tract symptoms due to benign prostatic hypertrophy Active 04/13/20 Abel Daugherty MD [address] [place] [address],[address], [address] , [facility] 04/13/2023 10:46:44 Prostate specific antigen above reference range Active 04/13/20 Abel Daugherty MD [address] [place] [address],[address], [address] , [facility] 04/13/2023 10:49:52 Anxiety Active 05/29/20 Se diaz, [facility] 05/29/2023 12:47:40 Depressive disorder Active 05/29/20 Se Meath null, [facility] 05/29/2023 12:47:44 Neuropathy Active 05/29/20 Se Meath null, [facility] 05/29/2023 12:48:03 Hypertensive disorder Active 05/29/20 Se Meat null, [facility] 05/29/2023 12:48:08 Hyperlipidemia Active 05/29/20 Se Meat null, [facility] 05/29/2023 12:48:14 Gout Active 05/29/20 Se Meat null, [facility] 05/29/2023 12:48:23 Chronic obstructive pulmonary disease Active 05/29/20 Se Meat null, [facility] 05/29/2023 12:48:31 Kidney stone Active 05/29/20 Se Meat null, [facility] 05/29/2023 12:48:39 Diabetes mellitus Active 05/29/20 Se [facility] null, [facility] 05/29/2023 12:48:51 Problem Notes None recorded. Procedures Surgical History Date Name Laterality Status Provider Name and Address Organization Details Recorded Time 04/20/20 Prostate Biopsy Procedure completed Abel Daugherty MD [address], [place], [address], [facility] 04/20/2023 14:19:12 04/20/20 23 Rocephin/Ceftriaxo ne completed Aditya Payne [facility], [facility] 04/20/2023 13:35:14 11/15/19 [facility] 05/29/2023 12:46:57 Cholecystectomy completed Francine Jones [facility], [facility] 04/13/2023 10:26:37 Vasectomy completed Francine Jones [facility], [facility] 04/13/2023 10:26:43 procedure on kidney completed Francine Jones [facility] 04/13/2023 10:27:18 Removal of sperm duct(s) completed Not Available Health Note 05/28/2023 18:22:57 Laparoscopic cholecystectomy completed Not Available Health Note 05/28/2023 18:22:58 Fragmenting of kidney stone completed Not Available Health Note 05/28/2023 18:22:58 Imaging Results Imaging Date Name Status LastModified by Organiz ation Details LastModified Time 04/20/2023 US, prostate completed [id number] Informati on not available 04/24/2023 09:01:04 Procedure Notes None recorded. Medical Equipment None Reported. Allergies Allergen ID Allergen Name Allergen Category Reaction Reaction Severity Criticality Documentation Date Start Date Code Code System Note Provider Name and Address Organization Details Recorded Time 201715 Zosyn medicatio n rash Not available Not available 05/28/2023 [id number] RxNorm Not Available Health Note 18:22:57 Medications Name Sig Start Date Stop Date Status Note LastModified by Organization Details LastModified Time venlafaxi ne ER 75 mg capsule,e xtended release 24 hr TAKE ONE CAPSULE BY MOUTH EVERY MORNING FOR 7 DAYS THEN INCREASE TO TWO CAPSULES DAILY 05/29 completed HN: Patient reports no longer taking Not Available Not Available Not Available atorvasta tin 20 mg tablet TAKE ONE TABLET BY MOUTH EVERY DAY active Not Available Not Available No t Available azithromy cornell 250 mg tablet TAKE TWO TABLETS BY MOUTH ONE DOSE ON THE FIRST DAY, THEN TAKE ONE DAILY THEREAFT ER. 04/13 completed Not Available Not Available Not Available metoprolo l tartrate 100 mg tablet TAKE ONE TABLET BY MOUTH TWICE A DAY active Not Available Not Available No t Available lisinopri l 20 mg tablet TAKE 1 TABLET BY MOUTH DAILY FOR BLOOD PRESSURE . 04/13 completed Not Available Not Available Not Available amlodipin e 5 mg tablet TAKE 1 TABLET BY MOUTH ONCE DAILY FOR BLOOD PRESSURE . 04/13 completed Not Available Not Available Not Available ceftriaxo ne 1 gram solution for injection Take 1 g by injectio n route. 05/29 completed HN: Patient reports no longer taking Not Available Not Available Not Available tamsulosi n 0.4 mg capsule TAKE ONE CAPSULE BY MOUTH EVERY DAY AT BEDTIME active Not Available Not Available No t Available metformin 1,000 mg tablet TAKE ONE TABLET BY MOUTH TWICE A DAY WITH MEALS active Not Available Not Available No t Available monteluka st 10 mg tablet TAKE ONE TABLET BY MOUTH EVERY DAY AT BEDTIME FOR ALLERGIE S AND COPD active Not Available Not Available No t Available levofloxa cornell 500 mg tablet TAKE 1 TABLET BY MOUTH THE MORNING OF THE PROCEDUR E 05/29 completed Not Available Not Available Not Available metformin ER 500 mg tablet,ex tended release 24 hr TAKE 4 TABLETS BY MOUTH ONCE DAILY 04/13 completed Not Available Not Available Not Available duloxetin e 30 mg capsule,d elayed release TAKE ONE CAPSULE BY MOUTH EVERY MORNING FOR 7 DAYS THEN INCREASE TO TWO CAPSULES DAILY 05/29 completed HN: Patient reports no longer taking Not Available Not Available Not Available amlodipin e 5 mg-olmesa rtan 20 mg tablet TAKE ONE TABLET BY MOUTH EVERY DAY FOR FOR BLOOD PRESSURE STOP LISINOPR IL AND STOP AMLODIPI NE active Not Available Not Available No t Available GaviLyte- G 236 gram-22.7 4 gram-6.74 gram-5.86 gram oral solution TAKE 240MLS BY MOUTH EVERY 10 MINUTES UNTIL FECAL EFFLUENT IS CLEAR 04/13 completed Not Available Not Available Not Available Jardiance 10 mg tablet active Not Available Not Available Not Available Trulicity 1.5 mg/0.5 mL subcutane ous pen injector INJECT 1.5 MG UNDER THE SKIN ONCE WEEKLY 04/13 completed Not Available Not Available Not Available Trulicity 0.75 mg/0.5 mL subcutane ous pen injector INJECT 0.75MG SUBCUTAN EOUSLY ONCE PER WEEK FOR DIABETES . 05/29 completed HN: Patient reports no longer taking Not Available Not Available Not Available Vitals Date Recorded Body height Body mass index (BMI) Body weight Provider Name and Address Organization Details Last Updated DateTime 04/13/2023 180.34 cm 30.7 kg/m2 65303.32 g [facility] 04/13/2023 10:23:09 Date Recorded Body weight Body mass index (BMI) Body height Provider Name and Address Organization Details Last Updated DateTime 06/01/2023 54507.96422 67089 g 30.7 kg/m2 180.34 cm Not Available Health Note 06/01/2023 16:02:13 Social History Question Answer Notes LastModified by Organizat ion Details LastModified Time Tobacco Smoking Status Former Smoker Not Available Health Note 05/28/2023 18:22:58 What Is Your Level Of Alcohol Consumption? Occasional Information not available 06/01/2023 What Is Your Level Of Caffeine Consumption? Occasional [email or web address] Information not available 05/28/2023 How Much Tobacco Do You Chew? None [email or web address] Information not available 05/28/2023 Do You Or Have You Ever Used E-cigarettes Or Vape? Never Used Electronic Cigarettes [email or web address] Information not available 05/28/2023 When Did You Quit Smoking? 11-15yearssinc elastcigarette Information not available 06/01/2023 What Was The Date Of Your Most Recent Tobacco Screening? 06/01/2023 [email or web address] Information not available 05/28/2023 Have You Ever Been Counseled For Unhealthy Alcohol Use? No Information not available 06/01/2023 What Is Your Relationship Status? [email or web address] Information not available 05/28/2023 Are You Sexually Active? Yes [email or web address] Information not available 05/28/2023 Do You Or Have You Ever Used Smokeless Tobacco? Never Used Smokeless Tobacco [email or web address] Information not available 05/28/2023 Do You Use Any Illicit Or Recreational Drugs? No [email or web address] Information not available 05/28/2023 Has Tobacco Cessation Counseling Been Provided? No [email or web address] Information not available 04/13/2023 How Many Years Have You Smoked Tobacco? 15 [email or web address] Information not available 05/28/2023 Do You Or Have You Ever Used Any Other Forms Of Tobacco Or Nicotine? No [email or web address] Information not available 04/13/2023 How Many Days In The Past Year Have You Consumed 5 Or More Drinks? 0 [email or web address] Information no t available 05/28/2023 Sex: Unknown Functional Status None recorded. Mental Status None recorded. Family History Relationship Description Onset Age of this Age Resolved Age Notes Unspecified Relation Family history of malignant neoplasm Unspecified Relation Family history of cardiac disorder Medical History Condition Response High Blood Pressure Y Kidney Stones Y Depression N Lung Disease N GERD/Acid Reflux N Sexually Transmitted Infection N Diabetes Y Bleeding Disorder N Cancer N High Cholesterol N Heart Disease N Immunizations Vaccine Type Date Status Provider Name and Address Organization Details Recorded Time pneumococcal, unspecified formulation 04/16/2021 completed Se Meath null, [facility] 06/01/2023 16:14:03 influenza, unspecified formulation 05/01/2023 completed Se Meath null, [facility] 06/01/2023 16:14:03 SARS-COV-2 (COVID-19) vaccine, UNSPECIFIED 04/16/2022 completed Se Meath null, [facility] 06/01/2023 16:14:03 Influenza, split virus, quadrivalent, preservative 06/16/2017 completed Se Meath null, [facility] 05/29/2023 12:46:20 Influenza, adjuvanted, quadrivalent, PF 04/24/2022 completed Se Meath null, [facility] 05/29/2023 12:46:20 Influenza, adjuvanted, quadrivalent, PF 05/10/2021 completed Se Meath null, [facility] 05/29/2023 12:46:20 COVID-19, mRNA, LNP-S, PF, 100 mcg/0.5mL dose or 50 mcg/0.25mL dose 10/02/2020 completed Se Meath null, [facility] 05/29/2023 12:46:20 COVID-19, mRNA, LNP-S, PF, 100 mcg/0.5mL dose or 50 mcg/0.25mL dose 10/30/2020 completed Se Meath null, [facility] 05/29/2023 12:46:20 COVID-19, mRNA, LNP-S, bivalent, PF, 50 mcg/0.5 mL or 25mcg/0.25 mL dose 05/26/2022 completed Se Meath null, [facility] 05/29/2023 12:46:20 pneumococcal polysaccharide PPV23 05/28/2018 completed Se Meath null, [facility] 05/29/2023 12:46:20 Tdap 09/15/2015 completed Se Meath null, [facility] 05/29/2023 12:46:20 Pneumococcal conjugate PCV 13 05/25/2016 completed Se Meath null, [facility] 05/29/2023 12:46:20 Influenza, split virus, trivalent, preservative 05/04/2018 completed Se Meath null, [facility] 05/29/2023 12:46:20 Influenza, split virus, quadrivalent, PF 05/16/2019 completed Se Connorsh null, [facility] 05/29/2023 12:46:20 Influenza, high-dose, quadrivalent, PF 04/26/2023 completed Se Connorsh null, [facility] 06/01/2023 16:14:03 Past Encounters Encounter ID Performer Location Encounter Start Date Encounter Closed Date Diagnosis/Indication Diagnosis SNOMED-CT Code [id number] MD Sam [facility] [address] [place] [phone] 04/13/2023 10:18:27 04/13/2023 11:21:30 Slowing of urinary stream 79051514 Lower urin sarah tract symptoms due to benign prostatic hypertrophy 09815761650527 Prostate s pecific antigen above reference range 541031858 [id number] MD Sam [facility] [employer] [facility] [address] [place] [phone] 04/20/2023 13:27:16 04/20/2023 14:34:21 Prostate specific antigen above reference range [id number] Aditya Payne [facility] [address] [place] [id number] 04/20/2023 13:26:40 04/20/2023 13:36:21 Prostate specific antigen above reference range [id number] MD María Gastelumro_[facility] [address] [place] [phone] 06/01/2023 16:00:42 06/02/2023 08:50:57 Malignant tumor of prostate 029282709 History of calculus of kidney 708423936 Lower urin sarah tract symptoms due to benign prostatic hypertrophy 15109237334249 Health Concerns Section Related Observation LastModified by Organization Detai ls LastModified Time None Recorded Concern Status LastModified by Organization Details LastModified Time None Recorded Advance Directives Directive None Recorded Payers Encounter Date Sequence Insurance Name Policy Number Policy Mcgill Covered Member ID Mcgill Member ID Guarantor Name 04/13/2023 1 [facility] (MEDICARE REPLACEMENT/A DVANTAGE - PPO) [id number] Sanjay Hernadezi [id number] Matt Barney 04/20/2023 1 [facility] (MEDICARE REPLACEMENT/A DVANTAGE - PPO) [id number] Sanjay Garciaski [id number] Matt Hernadezi 04/20/2023 1 [facility] (MEDICARE REPLACEMENT/A DVANTAGE - PPO) [id number] Sanjay Hernadezi [id number] Matt Hernadezi 06/01/2023 1 [facility] (MEDICARE REPLACEMENT/A DVANTAGE - PPO) [id number] Sanjay Hernadezi [id number] Matt Hernadezi Notes Date Note Type Note Provider Name and Address Organization Details Recorded Time 04/13/2023 text/html HPI Notes: : Gout, HLD, DM, HTN, asthma, h/o EtOH abuse, anxiety, depression, h/o kidney stones. PSA 01/12/17 = 4.04 ng/mL. PSA 03/01/23 = 5.9 ng/mL. Cr 03/01/23 = 1.0 (GFR >60). Here with his , Abbie. Here for his elevated PSA. Nocturia 1-3x/night. He has some urgency too and he'll have some leakage if he cannot find a bathroom right away. No straining but has to wait at times. Force of stream varies but on the weaker side. He doesn't feel that he empties well in the morning. No prior prostate medications or surgeries. SH - Quit smoking in his early 50s FH - No prostate, bladder, or renal cancer. Breast cancer in two sisters. Abel Daugherty MD [address] [place] [address],[address], [place], [address], [facility] 04/13/2023 10:54:01 04/20/2023 text/html HPI Notes: : Gout, HLD, DM, HTN, asthma, h/o EtOH abuse, anxiety, depression, h/o kidney stones. PSA 01/12/17 = 4.04 ng/mL. PSA 03/01/23 = 5.9 ng/mL. Cr 03/01/23 = 1.0 (GFR >60). Here with his , Abbie. Here for his elevated PSA. Nocturia 1-3x/night. He has some urgency too and he'll have some leakage if he cannot find a bathroom right away. No straining but has to wait at times. Force of stream varies but on the weaker side. He doesn't feel that he empties well in the morning. No prior prostate medications or surgeries. 04/20/23: Started Flomax at the last visit. Here for prostate biopsy. Took oral levofloxacin. Got antibiotic injection. SH - Quit smoking in his early 50s FH - No prostate, bladder, or renal cancer. Breast cancer in two sisters. Abel Daugherty MD [address] [place] [address],[address], [place], [address], [facility] 04/20/2023 14:19:33 06/01/2023 text/html HPI Notes: This is a 68 year old male with a history of nephrolithiasis and benign prostatic hyperplasia with lower urinary tract symptoms who is referred by my partner Dr. Daugherty for the ongoing management of newly diagnosed prostate cancer. He was noted to have an elevated prostate specific antigen of 5.9 ng/mL (03/01/2023). He underwent a transrectal ultrasound guided prostate biopsy on 04/20/2023. Pathology: [id number], [place] Grade Group 1 (<5% of 1/12 cores), iPSA 5.9 ng/mL He is here to discuss next steps in management. He has benign prostatic hyperplasia with lower urinary tract symptoms. He currently manages his symptoms with tamsulosin 0.4 mg daily. He has a history of nephrolithiasis. He has had no recent acute stone episodes. He denies flank pain or gross hematuria. Davey Pradhan MD [address] [facility], [place], [address], [facility] 06/02/2023 00:01:45
--- OUTSIDE RECORDS SUMMARY | 2024-01-25 07:52 | XMS_ITS | Encounter Summary ---
Author Organization [facility] Address [address] [place] [address] Care Team Providers Care Hospice Manager Name Role Phone Unavailable Primary Care Provider Unavailabl e Encounter Details Date Type Department Care Team (Late st Contact Info) Description 11/13/2023 Orders Only Department of Urology in [place], [place] [address] [place] [phone] Desean Perales, MPAS, P.A.-C. [address] [place] [phone] Social History Tobacco Use Types Packs/Day Years Used Date Smoking Tobacco: Former Cigarettes 2 30 Passive Smoke Exposure: Past Smokeless Tobacco: Never Passive Exposure Comments:tony rents did smoke when he was growing [...]
--- OUTSIDE RECORDS SUMMARY | 2024-01-25 07:52 | XMS_ITS | Encounter Summary ---
Author Organization [facility] Address [address] [place] [address] Care Team Providers Care Brazer Controlled Atmospheric Furnace Name Role Phone Unavailable Primary Care Provider Unavailabl e Reason for Referral * Outpatient (Routine) - Closed Specialty Diagnoses / Procedures Referred By Hector rivera Referred To Contact Diagnoses Preanesthetic Medical Exam Procedures ECG 12 Lead Milka Badillo APRN, C.NAndrez, M.S.N. [address] [place] [phone] [facility] Referral ID Status Reason Start Date Expiration Date Visits Re quested Visits Authorized [id number] Closed 11/06/2023 11/05/2024 1 1 Encounter Details Date Type Department Care Team (Late st Contact Info) Description 11/06/2023 Orders Only Preoperative Evaluation Center in [place], [place] [address] [place] [phone] Milka Badillo APRN, C.N.P., M.S.N. [address] [place] [phone] Preanesthetic Medical Exam (Primary Dx) Social History Tobacco Use Types [...] on file documented as of this encounter Results * ECG 12 Lead (11/30/2023 11:37 AM CDT) Ventricular Rate ECG/Min 71 BPM MUSE [place] Interval 156 ms MUSE QRSD Interval 132 ms MUSE QT Interval 418 ms MUSE QTC Interval 454 ms MUSE P [place] 79 degrees MUSE R [place] -79 degrees MUSE T Wave [place] 29 degrees MUSE 11/30/2023 11:3 7 AM [...] C.N.P., M.S.N. EC G ORDERABLES MUSE NA documented in this encounter Visit Diagnoses Diagnosis Preanesthetic Medical Exam- Primary documented in this encounter
--- OUTSIDE RECORDS SUMMARY | 2024-01-25 07:52 | XMS_ITS | Encounter Summary ---
Author Organization [facility] Address [address] [place] [address] Care Team Providers Care Cream Separator Operator Name Role Phone Juventino aBy MD Primary Care Provid er Juventino Bay MD Unavailable + [phone] Juventino Bay MD Unavailable + [phone] Liam Castillo PA-C Unavailable [phone] Liam Castillo PA-C Unavailable [phone] Encounter Details Date Type Department Care Team (Late st Contact Info) Description 02/17/2018 MyC Medical Advice [address] [place] [phone] Kate Escudero RN Social History Tobacco Use Types Packs/Day Years Used Date Smoking Tobacco: Former Cigarettes Q uit: 02/02/2015 Smokeless Tobacco: Never Alcohol Use Standard Drinks/Week Comments Yes 0 (1 standard drink = 0.6 oz pur e alcohol) occasional Sex and Gender Information Value Date Recorded Sex Assigned at Not on file Gender Identity Not on file Sexual Orientation Not on file documented as of this encounter Plan of Treatment Not on file documented as of this encounter Visit Diagnoses Not on filedocumented in this encounter Additional Health Concerns Assessment Noted Time PHQ-9 Depression Total Score: 0 04/29/20 15 7:23 AM CDT documented as of this encounter Care Teams Cream Separator Operator Relationship Specialty Start Date End Date Juventino Bay MD [address] [address] PCP - General Internal Medicine 06/09/17 Juventino Bay MD [address] FRANKEL [address] PCP - Assigned PCP 01/15/17 09/18/18 Juventino Bay MD [address] [address] Assigned PCP 01/15/17 02/08/20 Liam Castillo PA-C [address] [address] Assigned Sleep Provider 09/30/20 Liam Castillo PA-C [address] [address] Assigned Neuroscience Provider 09/30/20 11/13/21 documented as of this encounter
--- OUTSIDE RECORDS SUMMARY | 2024-01-25 07:52 | XMS_ITS | Encounter Summary ---
Author Organization [facility] Address [address] [place] [address] Care Team Providers Care Small Parts Shaper Operator Name Role Phone Unavailable Primary Care Provider Unavailabl e Encounter Details Date Type Department Care Team (Late st Contact Info) Description 11/03/2023 Clinical Communication Department of Urology in [place], [place] [address] [place] [phone] Bobby Tomlinson M.D. [address] [place] [phone] Social History Tobacco Use Types Packs/Day Years Used Date Smoking Tobacco: Former Cigarettes 2 30 Passive Smoke Exposure: Past Smokeless Tobacco: Never Passive Exposure Comments:tony scott did smoke when he was growing up. [facility] Utilities Answer Date Recorded In the past 12 months has [facility] [employer] gas, oil, or water [employer] threatened to shut off services in your [...] your living situation today? I have a [facility] place to live 12/04/2023 Sex and Gender Information Value Date Recorded Sex Assigned at Not on file Gender Identity Not on file Sexual Orientation Not on file documented as of this encounter Plan of Treatment Not on file documented as of this encounter Visit Diagnoses Not on filedocumented in this encounter
--- OUTSIDE RECORDS SUMMARY | 2024-01-25 07:52 | XMS_ITS | Referral Summary ---
Author Organization [facility] Address [address] [place] [address] Care Team Providers Care Senior Dot Net Developer Name Role Phone Juventino Bay MD Primary Care Provid er Allergies No known active allergies Medications Medication Sig Dispensed Refills Start Date End Date Status multivitamin, therapeutic (THERA-VIT) TABS Take 1 tablet by mouth daily Active aspirin 81 MG tablet Take 162 mg by mouth daily Active metFORMIN (GLUCOPHAGE) 500 MG tabletIndications:Ty pe 2 diabetes mellitus without complication, without long-term current use of insulin (H) Take 1 tablet (500 mg) by mouth 2 times daily (with meals) 180 tablet 1 01/13/2017 Active blood glucose monitoring (NO BRAND SPECIFIED) meter device kitIndications:Type 2 diabetes mellitus without complication, without long-term current use of insulin (H) Use to test blood sugar one times daily or as directed. 1 kit 03/21/2017 Active blood glucose monitoring (NO BRAND SPECIFIED) test stripIndications:Typ e 2 diabetes mellitus without complication, without long-term current use of insulin (H) Use to test blood sugars 1 times daily or as directed 100 strip 1 03/21/2017 Active blood glucose (NO BRAND SPECIFIED) lancets standardIndications: Type 2 diabetes mellitus without complication, without long-term current use of insulin (H) Use to test blood sugar 1 times daily or as directed. 100 each 1 03/21/2017 Active metoprolol succinate (TOPROL-XL) 100 MG 24 hr tabletIndications:Es sential hypertension, benign TAKE ONE TABLET BY MOUTH EVERY DAY 90 tablet 1 09/15/2017 Active atorvastatin (LIPITOR) 20 MG tabletIndications:Hy perlipidemia with target LDL less than 100 TAKE ONE TABLET BY MOUTH EVERY DAY 90 tablet 02/17/2018 Active lisinopril (ZESTRIL) 20 MG tablet Take 20 mg by mouth daily 05/10/2020 Active Active Problems Problem Noted Date Diagnosed Date Acute gouty arthritis 07/12/2016 Type 2 diabetes mellitus wit hout complication, without long-term current use of insulin 05/25/2016 Hyperlipidemia with target LDL less than 100 Overview: Diagnosis updated by automated process. Provider to review and confirm. Essential hypertension, benign (aka ESSENTIAL) Kidney stone Immunizations Name Administration Dates Next Due Pneumo Conj 13-V (2009&after) 05/25/2016 TDAP Vaccine (Adacel) 09/15/2015 Social History Tobacco Use Types Packs/Day Years Used Date Smoking Tobacco: Former Cigarettes Q uit: 02/02/2015 Smokeless Tobacco: Never Tobacco Cessation:Counseling Given: No Alcohol Use Standard Drinks/Week Comments Yes 0 (1 standard drink = 0.6 oz pure alcohol) 0-3 times per month, 1-2 drinks per time PHQ-2 Answer Date Recorded PHQ-2 Score 0 07/25/2018 Adolescent Education Answer Date Record ed Getting School Help Needed Not on file 04/07 Sex and Gender Information Value Date Recorded Sex Assigned at Not on file Gender Identity Not on file Sexual Orientation Not on file Last Filed Vital Signs Vital Sign Reading Time Taken Comments Blood Pressure 128/82 02/07/2017 10:51 AM CDT Pulse 85 02/07/2017 10:51 AM CDT Temperature 37.1 ??C (98.7 ??F) 02/07/2017 1 0:51 AM CDT Respiratory Rate 21 11/16/2016 11:0 0 AM CDT Oxygen Saturation 95% 02/07/2017 10: 51 AM CDT Inhaled Oxygen Concentration - - Weight 102.3 kg (225 lb 9.6 oz) 017 10:51 AM CDT Height 180.3 cm (5' 11) 01/11/2017 1:02 PM CDT Body Mass Index 31.46 01/11/2017 1:02 PM CDT Plan of Treatment Not on file Procedures Procedure Name Priority Date/Time Associated Diagnosis Comments COMPREHENSIVE METABOLIC PANEL Routine 06/21/2017 9:16 AM HAND GLASS CUTTER LIPID REFLEX TO DIRECT LDL PANEL Routine 01/12/2017 9:33 AM CDT Hyperlipidemia with target LDL less than 100 COLONOSCOPY - HIM SCAN Routine 07/17/2011 from Last 3 Months or Most Recently Relevant to Health Maintenance Results * (ABNORMAL) Comprehensive metabolic panel (06/21/2017 9:16 AM [facility]) Sodium 142 133 - 144 mmol/L 06/22/2017 9:39 AM [facility] Potassium 4.2 3.4 - 5.3 mmol/L 06/22/2017 9:39 AM [facility] Chloride 104 94 - 109 mmol/L 06/22/2017 9:39 AM [facility] Carbon Dioxide 29 20 - 32 mmol/L 06/22/2017 9:39 AM [facility] Anion Gap 9 3 - 14 mmol/L 06/22/2017 9:39 AM [facility] Glucose 107(H) 70 - 99 mg/dL 06/22/2017 9:39 AM [facility] Comment:Fasting specimen Urea Nitrogen 18 7 - 30 mg/dL 06/22/2017 9:39 AM [facility] Creatinine 1.13 0.66 - 1.25 mg/dL 06/22/2017 9:39 AM [facility] GFR Estimate 66 >60 mL/min/1.7 m2 06/22/2017 9:39 AM [facility] Comment:Non GFR Calc GFR Estimate If Black 80 >60 mL/min/1.7 m2 06/22/2017 9:39 AM [facility] Comment: GFR Calc Calcium 9.1 8.5 - 10.1 mg/dL 06/22/2017 9:39 AM [facility] Bilirubin Total 0.5 0.2 - 1.3 mg/dL 06/22/2017 9:39 AM [facility] Albumin 3.6 3.4 - 5.0 g/dL 06/22/2017 9:39 AM HAND GLASS CUTTER [facility] Protein Total 6.6(L) 6.8 - 8.8 g/dL 06/22/2017 9:39 AM HAND GLASS CUTTER [facility] Alkaline Phosphatase 78 40 - 150 U/L 06/22/2017 9:39 AM HAND GLASS CUTTER [facility] ALT 76(H) 0 - 70 U/L 06/22/2017 9:39 AM HAND GLASS CUTTER [facility] AST 35 0 - 45 U/L 06/22/2017 9:39 AM HAND GLASS CUTTER [facility] Blood specimen (specimen) 06/21/2017 9:16 AM HAND GLASS CUTTER 06/21/2017 9:21 AM HAND GLASS CUTTER Juventino Bay MD LAB - BLOOD ORDERABLES Performing Organization Address [facility] Co de Phone Number [facility] [address] [place] [phone] * (ABNORMAL) Lipid panel reflex to direct LDL (01/12/2017 9:33 AM CDT) Cholesterol 150 <200 mg/dL [facility] Triglycerides 176(H) <150 mg/dL [facility] Comment: Borderline high: ??150-199 mg/dl High: ? 200-499 mg/dl Very high: ? >499 mg/dl Fasting specimen HDL Cholesterol 38(L) >39 mg/dL [facility] LDL Cholesterol Calculated 77 <100 mg/dL [facility] Comment:Desirable: <100 mg/d l Non HDL Cholesterol 112 <130 mg/dL [facility] Blood specimen (specimen) 01/12/2017 9:33 AM CDT 01/12/2017 9:38 AM CDT Juventino Bay MD LAB - BLOOD ORDERABLES Performing Organization Address [facility] Co de Phone Number [facility] [address] [place] [address] * Colonoscopy - HIM Scan (07/17/2011) Narrative Evangelina Jasso - 07/17/2011 Information from office visit dated: 09/15/2015 [id number] Hospital/clinic-wnl Provider Outside PROCEDURES from Last 3 Months or Most Recently Relevant to Health Maintenance Care Teams Senior Dot Net Developer Relationship Specialty Start Date End Date Juventino Bay MD [address] [place] [address] PCP - General Internal Medicine 06/09/17
--- OUTSIDE RECORDS SUMMARY | 2024-01-25 07:52 | XMS_ITS | Encounter Summary ---
Author Organization [facility] Address [address] [place] [address]. [place] [address] Care Team Providers Care Janitor Helper Name Role Phone Juventino Bay MD Primary Care Provid er Reason for Visit * Reason Onset Date Comments Orders 06/21/2022 Callback Encounter Details Date Type Department Care Team (Late st Contact Info) Description 06/21/[address] [phone] Liam Castillo PA-C [address] [address] Orders (Callback/) Social History Tobacco Use Types Packs/Day Years Used Date Smoking Tobacco: Former Cigarettes Q uit: 02/02/2015 Smokeless Tobacco: Never Alcohol Use Standard Drinks/Week Comments Yes 0 (1 standard drink = 0.6 oz pure alcohol) 0-3 times per month, 1-2 drinks per time PHQ-2 Answer Date Recorded PHQ-2 Score 0 07/25/2018 Sex and Gender Information Value Date Recorded Sex Assigned at Not on file Gender Identity Not on file Sexual Orientation Not on file documented as of this encounter Miscellaneous Notes * Telephone Encounter - Maira Boogie - 06/21/2022 1:51 PM CST Reason for Call: Other orde Detailed comments: patient called and needs a new order [facility] cpap supplies [facility] before his current appointment in September 2022. Please contact patient. Thank you. Phone Number Patient can be reached at: Home number on file [phone] (home) Best Time: any Can we leave a detailed message on this number? YES Call taken on 06/21/2022 at 1:51 PM by Maira Boogie CUTTER APPRENTICE documented in this encounter Plan of Treatment Not on file documented as of this encounter Visit Diagnoses Not on filedocumented in this encounter Additional Health Concerns Assessment Noted Time PHQ-9 Depression Total Score: 0 04/29/20 15 7:23 AM CDT documented as of this encounter Care Teams Janitor Helper Relationship Specialty Start Date End Date Juventino Bay MD [address] [place] [address] PCP - General Internal Medicine 06/09/17 documented as of this encounter
--- OUTSIDE RECORDS SUMMARY | 2024-01-25 07:52 | XMS_ITS | Encounter Summary ---
Author Organization [facility] Address [address] [place] [address] Care Team Providers Care Retail Coverage Merchandiser Name Role Phone Unavailable Primary Care Provider Unavailabl e Reason for Visit * Reason Onset Date Comments Med Question 11/13/2023 Encounter Details Date Type Department Care Team (Late st Contact Info) Description 11/13/2023 Clinical Communication Department of Urology in [place], [place] [address] [place] [phone] Desean Perales, MARY, P.A.-C. [address] [place] [phone] Med Question Social History Tobacco Use Types Packs/Day Years Used Date Smoking Tobacco: Former Cigarettes 2 30 Passive Smoke Exposure: Past Smokeless Tobacco: Never Passive Exposure Comments:tony scott did smoke when he was growing up. [facility] Utilities Answer Date Recorded In the past 12 months has [facility], gas, oil, or water [employer] threatened to shut off services in your [...] your living situation today? I have a [facility] place to live 12/04/2023 Sex and Gender Information Value Date Recorded Sex Assigned at Not on file Gender Identity Not on file Sexual Orientation Not on file documented as of this encounter Plan of Treatment Not on file documented as of this encounter Visit Diagnoses Not on filedocumented in this encounter
--- OUTSIDE RECORDS SUMMARY | 2024-01-25 07:52 | XMS_ITS | Encounter Summary ---
Author Organization [facility] Address [address] [place] [address] Care Team Providers Care Clothing Examiner Name Role Phone Unavailable Primary Care Provider Unavailabl e Reason for Referral * Outpatient (Routine) - Closed Specialty Diagnoses / Procedures Referred By Contac t Referred To Contact Urology Diagnoses Primary Malignant Neoplasm Of Prostate (HCC) Desean Perales [place]AS, [place] [phone] [facility] Referral ID Status Reason Start Date Expiration Date Visits Re quested Visits Authorized [id number] Closed 09/28/2023 03/29/2025 1 1 * Outpatient (Routine) - Closed Specialty Diagnoses / Procedures Referred By Contac t Referred To Contact Radiation Oncology Diagnoses Primary Malignant Neoplasm Of Prostate (HCC) Desean Perales MPAS P.A.-C. [address] [place] [phone] [facility] Referral ID Status Reason Start Date Expiration Date Visits Re quested Visits Authorized [id number] Closed 09/28/2023 03/29/2025 1 1 Encounter Details Date Type Department Care Team (Late st Contact Info) Description 09/28/2023 Clinical Communication Department of Urology in [place], [place] [address] [place] [phone] Desean Perales MPAS, P.A.-C. [address] [place] [phone] Social History Tobacco Use Types Packs/Day Years [...] encounter Miscellaneous Notes * Telephone Encounter - Desean Perales MPAS, P.A.-C. - 09/28/2023 4:48 PM CDT I contacted the patient this evening about his prostate biopsy results. This revealed Davy 3+4=7prostate cancer. I informed him that I was going to place consult for both surgical consult and Radiation Oncology consult. He would like to have both of these set up ideally on the same day. He alsorequests that I refill his Flomax and he has been having some hesitancy with urination and I advised that he double his dose of Flomax to help with this during the healing process. All other questions were addressed at this time. He appreciated the call. documented in this encounter Plan of Treatment Scheduled Referrals Name Type Priority Associated Diagnoses Orde r Schedule Radiation Oncology - consult (clinic) Outpatient Referral Routine Primary Malignant Neoplasm Of Prostate (HCC) Expected: 09/28/2023 (Approximate), Expires: 12/28/2024 Urology - Oncology - prostate consult (clinic) Outpatient Referral Routine Primary Malignant Neoplasm Of Prostate (HCC) Expected: 09/28/2023 (Approximate), Expires: 12/28/2024 documented as of this encounter Visit Diagnoses Diagnosis Primary Malignant Neoplasm Of Prostate (HCC)- Primary documented in this encounter
--- OUTSIDE RECORDS SUMMARY | 2024-01-25 07:52 | XMS_ITS | Clinical Summary ---
Author Organization [facility] Address [address] [place] [address] Care Team Providers Care Physicist Acoustics Name Role Phone Juventino Bay MD Primary [...] 13-V (2009&after) 05/25/2016 TDAP Vaccine (Adacel) 09/15/2015 Family History Medical History Relation Comments Coronary Artery Disease Father Hyperlipidemia Mother Sleep Apnea Son Relation Status Comments Father Mother Son Social History Tobacco Use Types Packs/Day Years [...] 01/11/2017 1:02 PM CDT Plan of Treatment Health Maintenance Due Date Last Done Comments ADVANCE CARE PLANNING 1955 ANNUAL REVIEW OF HM ORDERS 1955 CT COLONOGRAPHY 1955 FIT 1955 FLEX SIG 1955 sDNA (Cologuard) 1955 HEPATITIS C SCREENING 01/13/1974 LUNG CANCER SCREENING 01/13/2006 ZOSTER IMMUNIZATION (1 of 2) 01/13/2006 RSV VACCINE ( & 60+) (1 - 1-dose 60+ series) 2016 LIPID 01/12/2018 01/12/2017, 11/03/2016, 09/23/2015, Additional history exists GLUCOSE 06/21/2020 06/21/2017, 12/16, 05/25/2016, Additional history exists FALL RISK ASSESSMENT 01/13/2021 COLONOSCOPY 07/17/2021 07/17/2011 COLORECTAL CANCER SCREENING 07/17/2021 COVID-19 Vaccine ( season) 2023 05/26/2022, 10/30/2020, 10/02/2020 Pneumococcal Vaccine: 65+ Years (3 of 3 - PPSV23 or PCV20) 05/28/2023 05/28/2018, 05/25/2016 PHQ-2 (once per calendar year) 2023 02/07/2017, 01/11/2017, 10/19/2016, Additional history exists INFLUENZA VACCINE (#1) 2024 , 04/24/2022, 05/10/2021, Additional history exists DTAP/TDAP/TD IMMUNIZATION (2 - Td or Tdap) 09/14/2025 09/15/2015 HPV IMMUNIZATION Aged Out No longer e ligible based on patient's age to complete this topic IPV IMMUNIZATION Aged Out No longer e ligible based on patient's age to complete this topic MENINGITIS IMMUNIZATION Aged Out No l onger eligible based on patient's age to complete this topic RSV MONOCLONAL ANTIBODY Aged Out No l onger eligible based on patient's age to complete this topic Procedures Procedure Name Priority Date/Time Associated Diagnosis Comments COMPREHENSIVE METABOLIC PANEL Routine 06/21/2017 9:16 AM SHELL MACHINE OPERATOR LIPID REFLEX TO DIRECT LDL PANEL Routine 01/12/2017 9:33 AM CDT Hyperlipidemia with target LDL less than 100 COLONOSCOPY - HIM SCAN Routine 07/17/2011 from Last 3 Months or Most Recently Relevant to Health Maintenance Results * (ABNORMAL) Comprehensive metabolic panel (06/21/2017 9:16 AM [facility]) Sodium 142 133 - 144 mmol/L 06/22/2017 9:39 AM [facility] Potassium 4.2 3.4 - 5.3 mmol/L 06/22/2017 9:39 AM [facility] Chloride 104 94 - 109 mmol/L 06/22/2017 9:39 AM [facility] Carbon Dioxide 29 20 - 32 mmol/L 06/22/2017 9:39 AM [facility] Anion Gap 9 3 - 14 mmol/L 06/22/2017 9:39 AM [facility] Glucose 107(H) 70 - 99 mg/dL 06/22/2017 9:39 AM [facility] Comment:Fasting specimen Urea Nitrogen 18 7 - 30 mg/dL 06/22/2017 9:39 AM [facility] Creatinine 1.13 0.66 - 1.25 mg/dL 06/22/2017 9:39 AM [facility] GFR Estimate 66 >60 mL/min/1.7 m2 06/22/2017 9:39 AM [facility] Comment:Non GFR Calc GFR Estimate If Black 80 >60 mL/min/1.7 m2 06/22/2017 9:39 AM [facility] Comment: GFR Calc Calcium 9.1 8.5 - 10.1 mg/dL 06/22/2017 9:39 AM [facility] Bilirubin Total 0.5 0.2 - 1.3 mg/dL 06/22/2017 9:39 AM [facility] Albumin 3.6 3.4 - 5.0 g/dL 06/22/2017 9:39 AM [facility] Protein Total 6.6(L) 6.8 - 8.8 g/dL 06/22/2017 9:39 AM SHELL MACHINE OPERATOR [facility] Alkaline Phosphatase 78 40 - 150 U/L 06/22/2017 9:39 AM SHELL MACHINE OPERATOR [facility] ALT 76(H) 0 - 70 U/L 06/22/2017 9:39 AM SHELL MACHINE OPERATOR [facility] AST 35 0 - 45 U/L 06/22/2017 9:39 AM SHELL MACHINE OPERATOR [facility] Blood specimen (specimen) 06/21/2017 9:16 AM SHELL MACHINE OPERATOR 06/21/2017 9:21 AM SHELL MACHINE OPERATOR Juventino Bay MD LAB - BLOOD ORDERABLES Performing Organization Address City/[facility]/ZIP Co de Phone Number [facility] [address] [place] [phone] * (ABNORMAL) Lipid panel reflex to direct LDL (01/12/2017 9:33 AM CDT) Cholesterol 150 <200 mg/dL [facility] Triglycerides 176(H) <150 mg/dL [facility] Comment: Borderline high: ??150-199 mg/dl High: ? 200-499 mg/dl Very high: ? >499 mg/dl Fasting specimen HDL Cholesterol 38(L) >39 mg/dL [facility] LDL Cholesterol Calculated 77 <100 mg/dL [facility] Comment:Desirable: <100 mg/d l Non HDL Cholesterol 112 <130 mg/dL [facility] Blood specimen (specimen) 01/12/2017 9:33 AM CDT 01/12/2017 9:38 AM CDT Juventino Bay MD LAB - BLOOD ORDERABLES Performing Organization Address City/[facility]/ZIP Co de Phone Number [facility] [address] [place], [place] [phone] * Colonoscopy - HIM Scan (07/17/2011) Narrative Romero, Evangelina - 07/17/2011 Information from office visit dated: 09/15/2015 [id number] Hospital/clinic-wn Provider Outside PROCEDURES from Last 3 Months or Most Recently Relevant to Health Maintenance Care Teams Physicist Acoustics Relationship Specialty Start Date End Date Juventino Bay MD [address] [place], [place] [phone] PCP - General Internal Medicine 06/09/17
--- OUTSIDE RECORDS SUMMARY | 2024-01-25 07:52 | XMS_ITS | Encounter Summary ---
Author Organization [facility] Address [address] [place] [address] Care Team Providers Care Sap Plant Maintenance Consultant Name Role Phone Unavailable Primary Care Provider Unavailabl e Reason for Visit * Reason Comments Prostate Cancer * Outpatient (Routine) - Closed Specialty Diagnoses / Procedures Referred By Contedu t Referred To Contact Urology Diagnoses Primary Malignant Neoplasm Of Prostate (HCC) Desean Perales, MARY, PPedroAPedro-CPedro 200 [place] [address] [facility] Referral ID Status Reason Start Date Expiration Date Visits Re quested Visits Authorized [id number] Closed 09/28/2023 03/29/2025 1 1 Encounter Details Date Type Department Care Team (Latest Contact Info) Description 10/31/2023 1:30 PM CDT Comprehensive Visit Department of Urology in [place], [place] [address] [place] [phone] Bobby Tomlinson M.D. [address] [place] [phone] Primary Malignant Neoplasm Of Prostate (HCC) Social [...] on file documented as of this encounter Consult Notes * Bobby Tomlinson M.D. - 10/31/2023 1:30 PM CDT SUBJECTIVE CHIEF COMPLAINT / REASON FOR VISIT Favorable intermediate risk prostate cancer HISTORY OF PRESENT ILLNESS It was a pleasure to meet with Matt Barney for discussion of his prostate cancer diagnosis. He is accompanied today by his and son. Mr. Barney is a 68 y.o. gentleman who was noted to have a PSA trend as follows: 5.9 03/01/2023 4.4 01/12/2017 TRUS prostate biopsy was completed locally on 04/20/2023. Final pathology revealed 1 core of Mansfield 3+3=6 prostate cancer in the right lateral apex. He met with my colleague, MARY Gonzales, P.A.-C., P.A. following this diagnosis. This prompted a prostate MRI on 09/11/2023. The MRI demonstrated a 31 cc prostate with a density of0.19. PI-RADS 4 lesion in the right anterior at apex peripheral zone. PI-RADS 3 lesion in the left posterior at base peripheral zone. There was not evidence of extracapsular extension. There was not evidence of neurovascular bundle invasion, lymphadenopathy He underwent a MRI Fusion biopsy on 09/19/2023. Pathology of this revealed Davy 3+4=7 prostate cancer in the GOMEZ 1 right anterior at apex (2/2, 50%) and right anterior medial (1/1, 70%). Mansfield 3+3=6 in the left anterior medial (1/2, <10%). He presents today for discussion of management options. He does have irritative voiding symptoms consisting of slow stream, frequency. No history of recurring urinary tract infections or gross hematuria. He has generally normal erectile function but since his biopsy did have some mild dysfunction The following portions of the patient's history were reviewed and updated as appropriate: allergies, current medications, family history, medical history, social history, surgical history and problemlist MEDICAL HISTORY HTN DM II, (A1c 7.4) COPD HLD Kidney stones SURGICAL HISTORY Lap assisted cholecystectomy Ureteroscopy stone extraction x 3 CURRENT MEDICATIONS (anticoagulation, chemotherapeutics, immunotherapy, immunosuppressants): yes, 81 mg aspirin FAMILY HISTORY Negative for malignancies SOCIAL HISTORY 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 REVIEW OF SYSTEMS REVIEW OF SYSTEMS Constitutional: No fever, fatigue, anorexia, night sweats. HEENT: No vision changes or abnormal changes in smell, no headaches. Resp: No shortness of breath or cough. Cardio: No chest pain, palpitations. GI: No abdominal pain, changes in bowel movement. : See HPI. MSK: No weakness, paresthesias, or joint pains. Neuro: No gait ataxia. OBJECTIVE PHYSICAL EXAMINATION Constitutional: Oriented to person, place, and time. Appears well-developed and well-nourished. No distress. HENT: Head: Normocephalic and atraumatic. Eyes: EOM are normal. Pulmonary/Chest: Effort normal. Abdominal: Abdomen appears soft. Abdomen does not display tenderness and distention. Neurological: Alert and oriented to person, place, and time. Skin: Skin is warm and dry. Psychiatric: Has a normal mood and affect. ASSESSMENT / PLAN It was a pleasure to meet with Mr. Barney for discussion of management of his prostate cancer. Based on PSA and his pathology, he would fall into a favorable intermediate risk group. His MRI demonstrates no evidence of locoregional extension of the prostate cancer into the periprostatic soft tissue We reviewed options for management including surveillance, radiation, and surgery. The risks and benefits of these procedures were reviewed with the patient. Oncologic outcomes associated with procedures were also reviewed. Given his young age, excellent functional status, lack of significant competing health risks, and intermediate risk disease, I would recommend some form of active treatment. He would be an excellent candidate for robotic radical prostatectomy with bilateral pelvic lymph node dissection as we would achieve good cancer control as well as have good opportunity to preserve his functional status. We discussed risks, benefits, and alternatives to robotic assisted radical prostatectomy with pelvic lymphadenectomy. Risks discussed included but were not limited to bleeding, infection, damage to surrounding structures, anesthesia, postoperative erectile dysfunction and stress urinary incontinence. The perioperative course was also discussed which would involve a catheter in place for between 7-10 days depending on whether bladder neck reconstruction was necessary. With respect to the functional outcomes, I do expect him to have excellent return of urinary control which will begin at approximately 6 weeks - 8 weeks after surgery. I expect him to have achieved very good continence with minimal occasional leakage by 3-month timepoint. We reviewed the sphincter will continue to heal for upwards of 1 year so his continence will only continue to improve. We discussed the importance of Kegel exercises. With respect to erectile function, we will be performing a bilateral nerve- sparing, which would aidin recovery of his erectile function. We discussed that we would place him on low dose tadalafil and encouraged intimacy to help support recovery of his erectile function. I encouraged him to meet with Radiation Oncology and if he wishes to proceed with surgery, he may contact me. We also discussed weight loss prior to surgery documented in this encounter Plan of Treatment Not on file documented as of this encounter Visit Diagnoses Diagnosis Primary Malignant Neoplasm Of Prostate (HCC) documented in this encounter
== END 2024-01-24 12:12 | disposition home or self-care (01) ==
PROVIDERS: PCP Physician Assistant Medical; Referring Provider Physician Assistant Medical; Visit Provider Nurse Practitioner Family
DX: R35.0 Frequency of micturition (principal); N39.0 Urinary tract infection, site not specified; R39.9 Unspecified symptoms and signs involving the genitourinary system
CPT/HCPCS: 87086

== ENCOUNTER 2024-03-13 09:30 | Outpatient (CLI) | payer MEDICARE, SELFPAY ==
--- OUTSIDE RECORDS SUMMARY | 2024-03-14 11:18 | XMS_ITS | Encounter Summary ---
Author Organization [facility] Address [address] [place] [address] Care Team Providers Care Community Engagement Representative Name Role Phone Unavailable Primary Care Provider Unavailabl e Reason for Visit * Reason Onset Date Comments Med Question 11/13/2023 Encounter Details Date Type Department Care Team (Late st Contact Info) Description 11/13/2023 Clinical Communication Department of Urology in [place], [place] [address] [place] [address] [phone] Desean Perales, MARIJAS, P.A.-C. [address] [place] [phone] Med Question Social History Tobacco Use Types Packs/Day Years Used Date Smoking Tobacco: Former Cigarettes 2 30 Passive Smoke Exposure: Past Smokeless Tobacco: Never Passive Exposure Comments:tony scott did smoke when he was growing up. [facility] Utilities Answer Date Recorded In the past 12 months has [facility] [employer], gas, oil, or water [employer] threatened to shut off services in your [...] your living situation today? I [facility] to live 12/04/2023 Sex and Gender Information Value Date Recorded Sex Assigned at Not on file Gender Identity Not on file Sexual Orientation Not on file documented as of this encounter Plan of Treatment Not on file documented as of this encounter Visit Diagnoses Not on filedocumented in this encounter
--- OUTSIDE RECORDS SUMMARY | 2024-03-14 11:18 | XMS_ITS | Encounter Summary ---
Author Organization [facility] Address [address] [place] [address] Care Team Providers Care Medical Staff Director Name Role Phone Unavailable Primary Care Provider Unavailabl e Encounter Details Date Type Department Care Team (Late st Contact Info) Description 12/07/2023 Documentation Department of Urology in [place], [place] [address] [place] [phone] Bobby Tomlinson M.D. [address] [place] [phone] Social History Tobacco Use Types Packs/Day Years Used Date Smoking Tobacco: Former Cigarettes 2 30 Passive Smoke Exposure: Past Smokeless Tobacco: Never Passive Exposure Comments:tony renyolanda did smoke when he was growing up. Alcohol Use Standard Drinks/Week Comments Not Currently 0 (1 standard drink = 0.6 oz pur e alcohol) [facility] Utilities Answer Date Recorded In the past 12 months has [facility] [employer] gas, oil, or water [employer] threatened to shut off services in your [...] your living situation today? I have a [facility] place to live 12/04/2023 Sex [...] for your review. The prostate specimen demonstrated Davy 3+4 prostate cancer. This is consistent with [...]
--- OUTSIDE RECORDS SUMMARY | 2024-03-14 11:18 | XMS_ITS | Referral Summary ---
Author Organization [facility] Address [address] [place] [address] Care Team Providers Care Exterior Door Installer Name Role Phone Unavailable Primary Care Provider Unavailabl e Source Comments Patient records contain information from all sites at [facility]. For routine questions regarding patient records, call [phone] during business hours, M-F 8:00 AM - 5:00 PM Central Time. Record requests for emergency care only can be directed to [phone] at any time.[facility] Encounters Date Type Department Care Team Description 01/02/2024 Clinical Communication Department of Urology in [place], [place] [address] [place] [phone] Bobby Tomlinson M.D. 12/21/2023 Orders Only Department of Urology in [place], [place] [address] [place] [phone] Lena Rojas, RYifan. 12/19/2023 8:00 AM CDT Procedure visit Department of Urology in [place], [place] [address] [place] [phone] Fidel Schmid M.D. Isabel Flanagan, R.N. Primary Malignant Neoplasm Of Prostate (HCC) 12/15/2023 Clinical Communication Department of Urology in [place], [place] [address] [place] [phone] Bobby Tomlinson M.D. from Last 3 Months Allergies Active Allergy [...] drink = 0.6 oz pur e alcohol) [facility] Utilities Answer Date Recorded In the past 12 months has e [employer], oil, or water [employer] threatened to shut off services in your [...] on file Medical Devices Implanted Type Area Shank Paperer Device Identifier Shelf Expiration Date Model / Serial / Lot [facility] - [id number] Implanted:Qty: 1 on 12/04/2023 by Bobby Tomlinson M.D. at [facility] Hardware e.g. pins/screws /rods [email or web address] [id number] 04/25/2028 [id number] / / [id number] [facility] - [id number] Implanted:Qty: 1 on 12/04/2023 by Bobby Tomlinson M.D. at [facility] Hardware e.g. pins/screws /rods [employer] 07/25/2028 [id number] / / [id number] [facility] - [id number] Implanted:Qty: 1 on 12/04/2023 by Bobby Tomlinson M.D. at [facility] Hardware e.g. pins/screws /rods [email or web address] [id number] / / [id number] [facility] Lulú Robert - [id number] Implanted:Qty: 1 on 12/04/2023 by Bobby Tomlinson M.D. at [facility] Hardware e.g. pins/screws /rods [email or web address] [id number] 06/15/2028 [id number] / / [id number] Clp katie Chinomr Hopper - [id number] Implanted:Qty: 1 on 12/04/2023 by Bobby Tomlinson M.D. at [facility] Hardware e.g. pins/screws /rods [employer] [id number] / / [id number] Clp katie Chinomr Hopper - [id number] Implanted:Qty: 1 on 12/04/2023 by Bobby Tomlinson M.D. at [facility] Hardware e.g. pins/screws /rods [employer] [id number] / / [id number] Clp ol Lulúmr Jones - [id number] Implanted:Qty: 1 on 12/04/2023 by Bobby Tomlinson M.D. at [facility] Hardware e.g. pins/screws /rods [employer] [id number] 06/15/2028 [id number] / / [id number] Conversions - Default Historical Implant Device Implanted:05/12 (Quantity not on file) Ocular Lens Left: Eye Description:Body Location - Eye L. Device Status Text - OculrLens. Conversions - Default Historical Implant Device Implanted:05/12 (Quantity not on file) Ocular Lens Right: Eye Description:Body Location - Eye R. Device Status Text - OculrLens. Stent Inlay 7fr X 26cm - Reece [id number] Implanted:Qty: 1 on 05/12/2015 Ureteral Stent C.R.Bard Description:Device Manufactu [facility] Patient Care Division. Device Status Text - [id number]. Stent Inlay 7fr X 26cm - Reece [id number] Implanted:Qty: 1 on 05/28/2015 Ureteral Stent C.R.Bard Description:Device Manufactu [facility] Patient Care Division. Device Status Text - [id number]. Stent Inlay 8fr X 30cm - Reece [id number] Implanted:Qty: 1 on 06/03/2016 Ureteral Stent C.R.Bard Description:Device Manufactu [facility] Patient Care Division. Device Status Text - [id number]. Explanted Type Area Shank Paperer Device Identifier Shelf Expiration Date Model / Serial / Lot Conversions - Default Historical Implant Device - [id number] Explanted:2016 (Quantity not on file) Ureteral Stent Description:Device Status Te xt - [id number]. Conversions - Default Historical Implant Device - [id number] Explanted:2016 (Quantity not on file) Ureteral Stent Description:Device Status Te xt - [id number]. Procedures Procedure Name Priority Date/Time Associated Diagnosis Comments HEMOGLOBIN A1C, B Routine 11/30/2023 6:5 1 AM CDT Primary Malignant Neoplasm Of Prostate (HCC) BASIC METABOLIC PANEL, S/P Routine 11/30/2023 6:51 AM CDT Primary Malignant Neoplasm Of Prostate (HCC) from Last 3 Months or Most Recently Relevant to Health Maintenance Results * (ABNORMAL) Hemoglobin A1c (11/30/2023 6:51 [...] CDT Bobby Tomlinson M.D. LAB BLOOD ADD-ON [facility] [address] [place] [address], [facility] DTL [facility] [address] [place] [address] * (ABNORMAL) Basic Metabolic Panel (11/30/2023 6:51 [...] 6:51 AM CDT 11/30/2023 7:30 AM CDT Bboby Tomlinson M.D. LAB BLOOD ADD-ON [facility] [address] [place] [address], [facility] [address] [place] [address] from Last 3 Months or Most Recently Relevant to Health Maintenance Advance Directives For more information, please contact: [phone] * Full Code (Latest Code Status on File) Date Activated Date Inactivated Comments 12/04/2023 7:39 PM 12/05/2023 2:03 PM Question Answer Comments Full Code: Discussed * Full Code Date Activated Date Inactivated Comments 12/04/2023 10:21 AM 12/04/2023 7:39 PM Question Answer Comments Full Code: Discussed
--- OUTSIDE RECORDS SUMMARY | 2024-03-14 11:18 | XMS_ITS | Encounter Summary ---
Author Organization [facility] Address [address] [place] [address] Care Team Providers Care Paramedic Name Role Phone Unavailable Primary Care Provider Unavailabl e Encounter Details Date Type Department Care Team (Late st Contact Info) Description 12/15/2023 Clinical Communication Department of Urology in [place], [place] [address] [place] [phone] Bobby Tomlinson M.D. [address] [place] [phone] Social History Tobacco Use Types Packs/Day Years Used Date Smoking Tobacco: Former Cigarettes 2 30 Passive Smoke Exposure: Past Smokeless Tobacco: Never Passive Exposure Comments:tony renyolanda did smoke when he was growing up. Alcohol Use Standard Drinks/Week Comments Not Currently 0 (1 standard drink = 0.6 oz pur e alcohol) [facility] Utilities Answer Date Recorded In the past 12 months has [facility] [employer] gas, oil, or water [employer] threatened to shut off services in your [...] your living situation today? I have a [facility] place to live 12/04/2023 Sex and [...]
--- OUTSIDE RECORDS SUMMARY | 2024-03-14 11:18 | XMS_ITS | Clinical Summary ---
Author Organization [place] Address [address] [place] [address] Care Team Providers Care Portrait Studio Photographer Name Role Phone Juventino Bay MD Primary [...] 1-dose 60+ series) 2016 LIPID 01/12/2018 01/12/2017, 1103/2016, 09/23/2015, Additional history exists GLUCOSE 06/21/2020 06/21/2017, [...] COMPREHENSIVE METABOLIC PANEL Routine 06/21/2017 9:16 AM RENTAL MANAGER LIPID REFLEX TO DIRECT LDL PANEL Routine 01/12/2017 9:33 AM CDT Hyperlipidemia with target LDL less than 100 COLONOSCOPY - HIM SCAN Routine 07/17/2011 from Last 3 Months or Most Recently Relevant to Health Maintenance Results * (ABNORMAL) Comprehensive metabolic panel (06/21/2017 9:16 AM [facility]) Sodium 142 133 - 144 mmol/L 06/22/2017 9:39 AM [facility] Potassium 4.2 3.4 - 5.3 mmol/L 06/22/2017 9:39 AM [facility] Chloride 104 94 - 109 mmol/L 06/22/2017 9:39 AM [facility] Carbon Dioxide 29 20 - 32 mmol/L 06/22/2017 9:39 AM [facility] Anion Gap 9 3 - 14 mmol/L 06/22/2017 9:39 AM [facility] Glucose 107(H) 70 - 99 mg/dL 06/22/2017 9:39 AM [facility] Comment:Fasting specimen Urea Nitrogen 18 7 - 30 mg/dL 06/22/2017 9:39 AM [facility] Creatinine 1.13 0.66 - 1.25 mg/dL 06/22/2017 9:39 AM [facility] GFR Estimate 66 >60 mL/min/1.7 m2 06/22/2017 9:39 AM [facility] Comment:Non GFR Calc GFR Estimate If Black 80 >60 mL/min/1.7 m2 06/22/2017 9:39 AM [facility] Comment: GFR Calc Calcium 9.1 8.5 - 10.1 mg/dL 06/22/2017 9:39 AM [facility] Bilirubin Total 0.5 0.2 - 1.3 mg/dL 06/22/2017 9:39 AM [facility] Albumin 3.6 3.4 - 5.0 g/dL 06/22/2017 9:39 AM [facility] Protein Total 6.6(L) 6.8 - 8.8 g/dL 06/22/2017 9:39 AM [facility] Alkaline Phosphatase 78 40 - 150 U/L 06/22/2017 9:39 AM RENTAL MANAGER [facility] ALT 76(H) 0 - 70 U/L 06/22/2017 9:39 AM RENTAL MANAGER [facility] AST 35 0 - 45 U/L 06/22/2017 9:39 AM RENTAL MANAGER [facility] Blood specimen (specimen) 06/21/2017 9:16 AM RENTAL MANAGER 06/21/2017 9:21 AM RENTAL MANAGER Juventino Bay MD LAB - BLOOD ORDERABLES [facility] [address] [place] [phone] * (ABNORMAL) Lipid panel reflex to direct LDL (01/12/2017 9:33 AM CDT) Cholesterol 150 <200 mg/dL [facility] Triglycerides 176(H) <150 mg/dL [facility] Comment: Borderline high: ??150-199 mg/dl High: ? 200-499 mg/dl Very high: ? >499 mg/dl Fasting specimen HDL Cholesterol 38(L) >39 mg/dL [facility] LDL Cholesterol Calculated 77 <100 mg/dL [facility] Comment:Desirable: <100 mg/d l Non HDL Cholesterol 112 <130 mg/dL [facility] Blood specimen (specimen) 01/12/2017 9:33 AM CDT 01/12/2017 9:38 AM CDT Juventino Bay MD LAB - BLOOD ORDERABLES Performing Organization Address City/[facility] [address]/ZIP Co de Phone Number [facility] [address] [place] [address] [phone] * Colonoscopy - HIM Scan (07/17/2011) Narrative Evangelina Jasso - 07/17/2011 Information from office visit dated: 09/15/2015 [id number] Provider Outside PROCEDURES from Last 3 Months or Most Recently Relevant to Health Maintenance Care Teams Portrait Studio Photographer Relationship Specialty Start Date End Date Juventino Bay MD [address] [place] [address] PCP - General Internal Medicine 06/09/17
--- OUTSIDE RECORDS SUMMARY | 2024-03-14 11:18 | XMS_ITS | Encounter Summary ---
Author Organization [facility] Address [address] [place] [address]. [place] [address] Care Team Providers Care Family Coach Name Role Phone Juventino Bay MD Primary Care Provid er Reason for Visit * Reason Onset Date Comments Orders 06/21/2022 Callback Encounter Details Date Type Department Care Team (Late st Contact Info) Description 06/21/[address] [phone] Liam Castillo PA-C [address] [address] Orders (Callback/) Social History Tobacco [...] be reached at: Home number on file [phone] (home) Best Time: any Can we leave a detailed message on this number? YES Call taken on 06/21/2022 at 1:51 PM by Maira Boogie PIT WORKER documented in this encounter Plan of Treatment Not on file documented as of this encounter Visit Diagnoses Not on filedocumented in this encounter Additional Health Concerns Assessment Noted Time PHQ-9 Depression Total Score: 0 04/29/20 15 7:23 AM CDT documented as of this encounter Care Teams Family Coach Relationship Specialty Start Date End Date Juventino Bay MD [address] [place] [address] PCP - General Internal Medicine 06/09/17 documented as of this encounter
--- OUTSIDE RECORDS SUMMARY | 2024-03-14 11:18 | XMS_ITS | Encounter Summary ---
Author Organization [facility] Address [address] [place] [address] Care Team Providers Care Credit Verifier Name Role Phone Juventino Bay MD Primary Care Provid er Juventino Bay MD Unavailable + [phone] Juventino Bay MD Unavailable +- [phone] Liam Castillo PA-C Unavailable +[phone] Liam Castillo PA-C Unavailable +[phone] Encounter Details Date Type Department Care Team (Late st Contact Info) Description 02/17/2018 My[facility] Medical Advice [address] [place] [phone] Kate Escudero RN Social History Tobacco Use [...] documented as of this encounter Care Teams Credit Verifier Relationship Specialty Start Date End Date Juventino Bay MD [address] [address] PCP - General Internal Medicine 06/09/17 Juventino Bay MD [address] [place] [address] PCP - Assigned PCP 01/15/17 09/18/18 Juventino Bay MD [address] [address] Assigned PCP 01/15/17 02/08/20 Liam Castillo PA-C [address] [place] [address] Assigned Sleep Provider 09/30/20 Liam Castillo PA-C [address] [place] [address] Assigned Neuroscience Provider 09/30/20 11/13/21 documented as of this encounter
--- OUTSIDE RECORDS SUMMARY | 2024-03-14 11:18 | XMS_ITS | Encounter Summary ---
Author Organization [facility] Address [address] [place] [address] Care Team Providers Care Senior Enterprise Architect Name Role Phone Unavailable Primary Care Provider Unavailabl e Encounter Details Date Type Department Care Team (Late st Contact Info) Description 01/02/2024 Clinical Communication Department of Urology in [place], [place] [address] [place] [phone] Bobby Tomlinson M.D. [address] [place] [phone] Social History Tobacco Use Types Packs/Day Years Used Date Smoking Tobacco: Former Cigarettes 2 30 Passive Smoke Exposure: Past Smokeless Tobacco: Never Passive Exposure Comments:tony renyolanda did smoke when he was growing up. Alcohol Use Standard Drinks/Week Comments Not Currently 0 (1 standard drink = 0.6 oz pur e alcohol) [facility] Utilities Answer Date Recorded In the past 12 months has [facility] [employer] gas, oil, or water [employer] threatened to shut off services in your [...] your living situation today? I have a [facility] place to live 12/04/2023 Sex [...]
--- OUTSIDE RECORDS SUMMARY | 2024-03-14 11:18 | XMS_ITS | Clinical Summary ---
Author Organization [facility] Address [address] [place] [address] Care Team Providers Care Sewage Disposal Worker Name Role Phone Unavailable Primary Care Provider Unavailabl e Source Comments Patient records contain information from all sites at [facility]. For routine questions regarding patient records, call [phone] during business hours, M-F 8:00 AM - 5:00 PM Central Time. Record requests for emergency care only can be directed to [phone] at any time.[facility] Allergies Active Allergy Reactions Criticality Noted Date [...] 01/02/2024 Clinical Communication Department of Urology in [place], [place] [address] [place] [phone] Bobby Tomlinson M.D. 12/21/2023 Orders Only Department of Urology in [place], [place] [address] [place] [phone] Lena Rojas, R.N. 12/19/2023 8:00 AM CDT Procedure visit Department of Urology in [place], [place] [address] [place] [phone] Fidel Schmid M.D. Isabel Flanagan, R.N. Primary Malignant Neoplasm Of Prostate (HCC) 12/15/2023 Clinical Communication Department of Urology in [place], [place] [address] [place] [address] Bobby Tomlinson M.D. from Last 3 Months Social History Tobacco Use Types Packs/Day Years Used Date Smoking Tobacco: Former Cigarettes 2 30 Passive Smoke Exposure: Past Smokeless Tobacco: Never Tobacco Cessation:Counseling Given: Not Answered Passive Exposure Comments:parents did smoke when he was growing up. Alcohol Use Standard Drinks/Week Comments Not Currently 0 (1 standard drink = 0.6 oz pur e alcohol) [facility] Utilities Answer Date Recorded In the past 12 months has e [employer], gas, oil, or water [employer] threatened to shut off services in your [...] Additional history exists Hemoglobin A1C 06/01/2024 11/30/2023, 06/16, 03/16/2017 Creatinine Level (Kidney Fun ction Test) [...] Completed 12/04/2023 Medical Devices Implanted Type Area Cloth Spreader Device Identifier Shelf Expiration Date Model / Serial / Lot Clp Hmol Plmr Lg - [id number] Implanted:Qty: 1 on 12/04/2023 by Bobby Tomlinson M.D. at [facility] Hardware e.g. pins/screws /rods [employer] [id number] 04/25/2028 [id number] / / [id number] Clp Hmol Plmr - [id number] Implanted:Qty: 1 on 12/04/2023 by Bobby Tomlinson M.D. at [facility] Hardware e.g. pins/screws /rods [employer] 07/25/2028 [id number] / / [id number] Clp Hmol Plmr - [id number] Implanted:Qty: 1 on 12/04/2023 by Bobby Tomlinson M.D. at [facility] Hardware e.g. pins/screws /rods [employer] [id number] / / [id number] Clp Hmol Plmr Robert - [id number] Implanted:Qty: 1 on 12/04/2023 by Bobby Tomlinson M.D. at [facility] Hardware e.g. pins/screws /rods [employer] [id number] 06/15/2028 [id number] / / [id number] Clp Hmol Plmr Md Bang [id number] Implanted:Qty: 1 on 12/04/2023 by Bobby Tomlinson M.D. at [facility] Hardware e.g. pins/screws /rods [employer] [id number] / / [id number] [facility] Lulú Md - [id number] Implanted:Qty: 1 on 12/04/2023 by Bobby Tomlinson M.D. at [facility] Hardware e.g. pins/screws /rods [employer] [id number] / / [id number] [facility] - [id number] Implanted:Qty: 1 on 12/04/2023 by Bobby Tomlinson M.D. at [facility] Hardware e.g. pins/screws /rods [employer] [id number] 06/15/2028 [id number] / / [id number] Conversions - Default Historical Implant Device Implanted:05/12 (Quantity not on file) Ocular Lens Left: Eye Description:Body Location - Eye L. Device Status Text - OculrLens. Conversions - Default Historical Implant Device Implanted:05/12 (Quantity not on file) Ocular Lens Right: Eye Description:Body Location - Eye R. Device Status Text - OculrLens. Stent Inlay 7fr X 26cm - [id number] Implanted:Qty: 1 on 05/12/2015 Ureteral Stent C.R.Bard Description:Device Manufactu [facility]. Device Status Text - [id number]. Stent Inlay 7fr X 26cm - [id number] Implanted:Qty: 1 on 05/28/2015 Ureteral Stent C.R.Bard Description:Device Manufactu [facility]. Device Status Text [id number]. Stent Inlay 8fr X 30cm - Reece [id number] Implanted:Qty: 1 on 06/03/2016 Ureteral Stent C.R.Bard Description:Device Manufactu [facility] Patient [facility]. Device Status Text - [id number]. Explanted Type Area Cloth Spreader Device Identifier Shelf Expiration Date Model / Serial / Lot Conversions - Default Historical Implant Device - [id number] Explanted:2016 (Quantity not on file) Ureteral Stent Description:Device Status Te xt - [id number]. Conversions - Default Historical Implant Device - [id number] Explanted:2016 (Quantity not on file) Ureteral Stent Description:Device Status Te xt - [id number]. Procedures Procedure Name Priority Date/Time Associated Diagnosis [...] CDT Bobby Tomlinson M.[place]. [place] [address], [facility] 200 [place] [address] * (ABNORMAL) Basic Metabolic Panel (11/30/2023 6:51 [...] CDT Bobby Tomlinson M.D. LAB BLOOD ADD-ON [facility] [address] [place] [address], [facility] [address] [place] [address] from Last 3 Months or Most Recently Relevant to Health Maintenance Advance Directives For more information, please contact: [phone] * Full Code (Latest Code Status on File) Date Activated Date Inactivated Comments 12/04/2023 7:39 PM 12/05/2023 2:03 PM Question Answer Comments Full Code: Discussed * Full Code Date Activated Date Inactivated Comments 12/04/2023 10:21 AM 12/04/2023 7:39 PM Question Answer Comments Full Code: Discussed
--- OUTSIDE RECORDS SUMMARY | 2024-03-14 11:18 | XMS_ITS | Encounter Summary ---
Author Organization [facility] Address 200 [place] [address] Care Team Providers Care Lower School Spanish Teacher Name Role Phone Unavailable Primary Care Provider Unavailabl e Reason for Referral * Outpatient (Routine) - Closed Specialty Diagnoses / Procedures Referred By Hector rivera Referred To Contact Diagnoses Primary Malignant Neoplasm Of Prostate (HCC) Procedures URO Urethral cath removal & voiding trial (UCO/VT) Heber Sebastian M.D. [facility] Referral ID Status Reason Start Date Expiration Date Visits Re quested Visits Authorized [id number] Closed 12/05/2023 12/04/2024 1 1 Reason for Visit * Auth/Cert (Routine) Specialty Diagnoses / Procedures Referred By Hector rivera Referred To Contact Diagnoses Primary Malignant Neoplasm Of Prostate (HCC) Primary Malignant Neoplasm Of Prostate (HCC) [C61] Procedures CT ROBOTIC SURGICAL SYS CT LAP PROSTEC RETROPUBIC RADCL CT LAPROSC BILAT TOT PELV LMPHADEC ROBOTIC-ASSISTED RADICAL PROSTATECTOMY ROBOTIC-ASSISTED DISSECTION LYMPH NODE - PELVIC Referral ID Status Reason Start Date Expiration Date Visits Re quested Visits Authorized [id number] 1 1 Encounter Details Date Type Department Care Team (Latest Contact Info) Description 12/04/2023 10:06 AM CDT - 12/05/2023 11:53 AM CDT Hospital Encounter [facility], Fifth Floor [address] [place] [address] Bobby Tomlinson M.D. [address] [place] [address] Primary Malignant Neoplasm Of Prostate (HCC) (Primary [...] drink = 0.6 oz pur e alcohol) [facility] Utilities Answer Date Recorded In the past 12 months has e [employer], gas, oil, or water [employer] threatened to shut off services in your [...] AM CDT DISCHARGE SUMMARY BRIEF OVERVIEW Hospital: [facility] Discharge Provider: Bobby Tomlinson M.D. [...] Loc / Dept 12/04/2023 ROBOTIC-ASSISTED RADICAL PROSTATECTOMY. oBbby Tomlinson M.D.Martin, Austin J, M.D. [facility] ROEI OR DISCHARGE DISPOSITION Home or Self [...] AM CDT You were discharged from the [facility] Urology Surgery - Tomlinson Service. Please identify this service name if you call with questions after hospitalization. * Attachments The following attachments cannot be sent through Care Everywhere. * Acetaminophen (By mouth) (Algerian) * Bacitracin (On the skin) (Algerian) * Cefdinir (By mouth) (Algerian) * Polyethylene Glycol 3350 (By mouth) (Algerian) * Oxybutynin (By mouth) (Algerian) * Senna (By mouth) (Algerian) * Tramadol (By mouth) (Algerian) documented in this encounter Medications at Time [...] catheter is in place. 30 g 12/05/2023 cetirizine (ZyrTEC) 10 mg tablet Take 10 mg by mouth daily. metFORMIN (GLUCOPHAGE) 1,000 mg tablet Take 1,000 mg by mouth 2 (two) times a day with meals. 04/08/2023 metoprolol tartrate (LOPRESSOR) 100 mg tablet Take 100 mg by mouth 2 (two) times a day. 04/12/2023 montelukast (SINGULAIR) 10 mg tablet Take 10 mg by mouth at bedtime. 04/08/2023 multivitamin tablet Take 1 tablet by mouth every morning. 03/16/2017 acetaminophen (TYLENOL) 500 mg tablet Take 2 tablets (1,000 mg total) by mouth every 6 (six) hours. 80 tablet 1 12/05/2023 blood sugar diagnostic strips (Blood Glucose Test Strips) Use to test blood sugars 1 times daily or as directed 03/21/2017 [facility] Use to test blood sugar 1 times daily or as directed. 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 Attendant A assistant manager pt actively participated and was necessary for one [...] LAB POCT ORDERABLES- MANUAL Performing Organization Address City/[facility]/ZIP Co de Phone Number POC [employer] [facility] 200 [place] [address], [facility] [[email or web address]] PCDE [facility] POC 200 [place] [address] * (ABNORMAL) Glucose, POCT (12/04/2023 7:53 PM CDT) Glucose, POCT, B 183(H) 70 - 140 mg/dL 12/04/2023 7:56 PM CDT PCDE Site Capillary 12/04/2023 7:56 PM CDT PCDE Last Intake > 4 hours 12/04/2023 7:56 PM CDT PCDE Blood 12/04/2023 7:53 PM CDT 12/04/2023 7:56 PM CDT Unknown Provider LAB POCT ORDERABLES- MANUAL Performing Organization Address City/[facility]/ZIP Co de Phone Number POC [employer] [facility] [address] [place] [address], [facility] [[email or web address]] PCDE [facility] POC [address] [place] [address] * (ABNORMAL) Glucose, POCT (12/04/2023 7:00 PM CDT) Glucose, POCT, B 164(H) 70 - 140 mg/dL 12/05/2023 6:35 AM CDT PCDE Site Capillary 12/05/2023 6:35 AM CDT PCDE Blood 12/04/2023 7:00 PM CDT 12/05/2023 6:35 AM CDT Unknown Provider LAB POCT ORDERABLES- MANUAL Performing Organization Address City/[facility]/ZIP Co de Phone Number POC [facility] 200 [place], [place] [phone] [place] [address] PCDE [facility] POC 200 [place] [address] * (ABNORMAL) Glucose, POCT (12/04/2023 5:00 PM CDT) Glucose, POCT, B 169(H) 70 - 140 mg/dL 12/04/2023 5:01 PM CDT PCDE Site Capillary 12/04/2023 5:01 PM CDT PCDE Blood 12/04/2023 5:00 PM CDT 12/04/2023 5:01 PM CDT Unknown Provider LAB POCT ORDERABLES- MANUAL Performing Organization Address City/[facility]/ZIP Co de Phone Number POC [employer] [facility] [address] PCDE [facility] POC 200 [place] [address] * Surgical Pathology, Frozen Lab (12/04/2023 3:55 [...] for permanent sections. ??Grossed by Elida Nation PA([facility]). B. ??Received fresh and placed in formalin labeled prostate is a 52.6 gram, 4.8 (S-I) x 3.6 (A-P) x 4.5 (R-L) cm radical prostatectomy, with nodular hypertrophy. The specimen is inked and the prostatic apex and bladder neck margins are submitted perpendicularly. ??Grossly, there is a 1.4 x 1.2 x 0.8 cm white mass involving the right mid, anterior prostate. ??Superintendent Custodian Janitor tissue submitted for permanent sections. ??Grossed by Elida Nation PA([facility]). 12/07/2023 5:43 PM CDT METH Block [...] adenocarcinoma Histologic Grade ?? Grade Group and Hutchinson Score ?Grade Group ?Grade Group 2 (Hutchinson Score 3+4=7) ?Minor Tertiary Pattern 5 (less than 5%): ?Not applicable ?Percentage of Pattern 4 in Hutchinson score 7: Less than 10% ?? Intraductal [...] SURG PATH ORDERA BLES Performing Organization Address [facility]/ZIP Co de Phone Number [facility] 200 [place] [address], [facility] [[email or web address]] METH [address] [address] * (ABNORMAL) Glucose, POCT (12/04/2023 2:56 PM CDT) Glucose, POCT, B 150(H) 70 - 140 mg/dL 12/04/2023 2:58 PM CDT PCDE Site Capillary 12/04/2023 2:58 PM CDT PCDE Blood 12/04/2023 2:56 PM CDT 12/04/2023 2:58 PM CDT Unknown Provider LAB POCT ORDERABLES- MANUAL Performing Organization Address [facility] Co de Phone Number POC [facility] 200 [place] [address], [facility] [[email or web address]] PCDE [facility] POC 200 [place] [address] * Glucose, POCT (12/04/2023 12:38 PM CDT) Glucose, POCT, B 114 70 - 140 mg/dL 12/04/2023 12:47 PM CDT PCDE Site Capillary 12/04/2023 12:47 PM CDT PCDE Blood 12/04/2023 12:3 8 PM CDT 12/04/2023 12:47 PM CDT Unknown Provider LAB POCT ORDERABLES- MANUAL Performing Organization Address City/[facility]/ZIP Co de Phone Number POC [facility] [address] [place] [address], [facility] [[email or web address]] PCDE [facility] POC 200 [place] [address] * (ABNORMAL) Glucose, POCT (12/04/2023 10:34 AM CDT) Glucose, POCT, B 156(H) 70 - 140 mg/dL 12/04/2023 10:36 AM CDT PCDE Last Intake 3-4 hours 12/04/2023 10:36 AM CDT PCDE Blood 12/04/2023 10:3 4 AM CDT 12/04/2023 10:36 AM CDT Unknown Provider LAB POCT ORDERABLES- MANUAL [facility] [address] [place] [address], [facility] [[email or web address]] PCDE [facility] POC [address] [place] [address] documented in this encounter Visit Diagnoses Diagnosis [...] surgical 1351 (Given - Provider: Rob Robertson, CARTOON DESIGNER, ROTARY DUMP OPERATOR)1644 (Given - Provider: Buck Caldwell, CARTOON DESIGNER, ROTARY DUMP OPERATOR, DNAP) heparin (porcine) injection 5,000 Units (COMPLETED) 5,000 Units, subcutaneous, Once, On Mon12/04/23 at 1245, For 1 dose, Intra-Op, Administer prior to induction of anesthesia. 1342 (Given - Provider: Rob Robertson APRN, ROTARY DUMP OPERATOR) heparin (porcine) injection 5,000 Units 5,000 Units, [...]
--- OUTSIDE RECORDS SUMMARY | 2024-03-14 11:18 | XMS_ITS ---
Author Organization [facility] Address [address] [place] [address] Care Team Providers Care Senior Sales Consultant Name Role Phone Unavailable Unavailable Unavailable Surgery Details Not on file Complications Check Surgery Details section. Procedure Estimated Blood Loss Check Surgery Details section. Procedure Findings Check Surgery Details section. Procedure Specimens Taken Check Surgery Details section.
--- OUTSIDE RECORDS SUMMARY | 2024-03-14 11:18 | XMS_ITS | Referral Summary ---
Author Organization Mobile Address [address] [place] [address] Care Team Providers Care Cashier Supervisor Name Role Phone Juventino Bay MD Primary [...] COMPREHENSIVE METABOLIC PANEL Routine 06/21/2017 9:16 AM [facility] LIPID REFLEX TO DIRECT LDL PANEL Routine 01/12/2017 9:33 AM CDT Hyperlipidemia with target LDL less than 100 COLONOSCOPY - HIM SCAN Routine 07/17/2011 from Last 3 Months or Most Recently Relevant to Health Maintenance Results * (ABNORMAL) Comprehensive metabolic panel (06/21/2017 9:16 AM [facility]) Sodium 142 133 - 144 mmol/L 06/22/2017 9:39 AM [facility] Potassium 4.2 3.4 - 5.3 mmol/L 06/22/2017 9:39 AM [facility] Chloride 104 94 - 109 mmol/L 06/22/2017 9:39 AM [facility] Carbon Dioxide 29 20 - 32 mmol/L 06/22/2017 9:39 AM [facility] Anion Gap 9 3 - 14 mmol/L 06/22/2017 9:39 AM [facility] Glucose 107(H) 70 - 99 mg/dL 06/22/2017 9:39 AM [facility] Comment:Fasting specimen Urea Nitrogen 18 7 - 30 mg/dL 06/22/2017 9:39 AM [facility] Creatinine 1.13 0.66 - 1.25 mg/dL 06/22/2017 9:39 AM [facility] GFR Estimate 66 >60 mL/min/1.7 m2 06/22/2017 9:39 AM [facility] Comment:Non GFR Calc GFR Estimate If Black 80 >60 mL/min/1.7 m2 06/22/2017 9:39 AM [facility] Comment: GFR Calc Calcium 9.1 8.5 - 10.1 mg/dL 06/22/2017 9:39 AM [facility] Bilirubin Total 0.5 0.2 - 1.3 mg/dL 06/22/2017 9:39 AM [facility] Albumin 3.6 3.4 - 5.0 g/dL 06/22/2017 9:39 AM [facility] Protein Total 6.6(L) 6.8 - 8.8 g/dL 06/22/2017 9:39 AM [facility] Alkaline Phosphatase 78 40 - 150 U/L 06/22/2017 9:39 AM [facility] ALT 76(H) 0 - 70 U/L 06/22/2017 9:39 AM [facility] AST 35 0 - 45 U/L 06/22/2017 9:39 AM [facility] Blood specimen (specimen) 06/21/2017 9:16 AM [facility] S[facility]ER 06/21/2017 9:21 AM [facility] Juventino Bay MD LAB - BLOOD ORDERABLES Performing Organization Address [facility] Co de Phone Number [facility] [address] [place] [address] * (ABNORMAL) Lipid panel reflex to direct LDL (01/12/2017 9:33 AM CDT) Cholesterol 150 <200 mg/dL [facility] Triglycerides 176(H) <150 mg/dL [facility] Comment: Borderline high: ??150-199 mg/dl High: ? 200-499 mg/dl Very high: ? >499 mg/dl Fasting specimen HDL Cholesterol 38(L) >39 mg/dL [facility] LDL Cholesterol Calculated 77 <100 mg/dL [facility] Comment:Desirable: <100 mg/d l Non HDL Cholesterol 112 <130 mg/dL [facility] Blood specimen (specimen) 01/12/2017 9:33 AM CDT 01/12/2017 9:38 AM CDT Juventino Bay MD LAB - BLOOD ORDERABLES Performing Organization Address [facility] Co de Phone Number [facility] [address] [place] [address] * Colonoscopy - HIM Scan (07/17/2011) Narrative Evangelina Jasso - 07/17/2011 Information from office visit dated: 09/15/2015 [id number] Provider Outside PROCEDURES from Last 3 Months or Most Recently Relevant to Health Maintenance Care Teams Cashier Supervisor Relationship Specialty Start Date End Date Juventino Bay MD [address] [place] [address] PCP - General Internal Medicine 06/09/17
--- OUTSIDE RECORDS SUMMARY | 2024-03-14 11:18 | XMS_ITS | Encounter Summary ---
Author Organization [facility] Address [address] [place] [address] Care Team Providers Care Events Administrative Assistant Name Role Phone Unavailable Primary Care Provider Unavailabl e Encounter Details Date Type Department Care Team (Late st Contact Info) Description 12/21/2023 Orders Only Department of Urology in [place], [place] [address] [place] [phone] Lena Rojas RPedroNPedro [address] [place] [phone] Social History Tobacco Use Types Packs/Day Years Used Date Smoking Tobacco: Former Cigarettes 2 30 Passive Smoke Exposure: Past Smokeless Tobacco: Never Passive Exposure Comments:tony renyolanda did smoke when he was growing up. Alcohol Use Standard Drinks/Week Comments Not Currently 0 (1 standard drink = 0.6 oz pur e alcohol) [facility] Utilities Answer Date Recorded In the past 12 months has [facility] [employer], gas, oil, or water [employer] threatened to shut off services in your [...]
--- OUTSIDE RECORDS SUMMARY | 2024-03-14 11:18 | XMS_ITS | Encounter Summary ---
Author Organization [facility] Address [address] [place] [address] Care Team Providers Care Aircraft Hydraulic Equipment Mechanic Name Role Phone Unavailable Primary Care Provider Unavailabl e Reason for Referral * Outpatient (Routine) - Closed Specialty Diagnoses / Procedures Referred By Hector rivera Referred To Contact Diagnoses Primary Malignant Neoplasm Of Prostate (HCC) Procedures URO Urethral cath removal & voiding trial (UCO/VT) Fidel Schmid M.D. 200 [place] [address] [facility] Referral ID Status Reason Start Date Expiration Date Visits Re quested Visits Authorized [id number] Closed 12/12/2023 12/11/2024 1 1 Reason for Visit * Reason Comments Prostate Cancer UCO * Outpatient (Routine) - Closed Specialty Diagnoses / Procedures Referred By Hector rivera Referred To Contact Diagnoses Primary Malignant Neoplasm Of Prostate (HCC) Procedures URO Urethral cath removal & voiding trial (UCO/VT) Heber Sebastian M.D. [facility] Referral ID Status Reason Start Date Expiration Date Visits Re quested Visits Authorized [id number] Closed 12/05/2023 12/04/2024 1 1 Encounter Details Date Type Department Care Team (Latest Contact Info) Description 12/12/2023 8:00 AM CDT Procedure visit Department of Urology in [place], [place] 200 [place] [address] Heber Sebastian M.D. Gehling, Kelly C, RPedroN. 200 [place] [address] Primary Malignant Neoplasm Of Prostate (HCC) Social History Tobacco Use Types Packs/Day Years Used Date Smoking Tobacco: Former Cigarettes 2 30 Passive Smoke Exposure: Past Smokeless Tobacco: Never Passive Exposure Comments:tony scott did smoke when he was growing up. Alcohol Use Standard Drinks/Week Comments Not Currently 0 (1 standard drink = 0.6 oz pur e alcohol) [facility] Utilities Answer Date Recorded In the past 12 months has e [employer], gas, oil, or water [employer] threatened to shut off services in your [...]
--- OUTSIDE RECORDS SUMMARY | 2024-03-14 11:18 | XMS_ITS | Encounter Summary ---
Author Organization [facility] Address [address] [place] [address] Care Team Providers Care Mussel Opener Name Role Phone Unavailable Primary Care Provider Unavailabl e Reason for Visit * Reason Comments Prostate Cancer UCO * Outpatient (Routine) - Closed Specialty Diagnoses / Procedures Referred By Contac t Referred To Contact Diagnoses Primary Malignant Neoplasm Of Prostate (HCC) Procedures URO Urethral cath removal & voiding trial (UCO/VT) Fidel Schmid M.D. [address] [place] [phone] [facility] Referral ID Status Reason Start Date Expiration Date Visits Re quested Visits Authorized [id number] Closed 12/12/2023 12/11/2024 1 1 Encounter Details Date Type Department Care Team (Latest Contact Info) Description 12/19/2023 8:00 AM CDT Procedure visit Department of Urology in [place], [place] [address] [place] [phone] Fidel Schmid M.D. [address] [place] [phone] Isabel Flanagan, RPedroNPedro [address] [place] [address] [phone] Primary Malignant Neoplasm Of Prostate (HCC) Social [...] your living situation today? I have a [facility] place to live 12/04/2023 Sex and Gender [...]
--- OUTSIDE RECORDS SUMMARY | 2024-03-14 11:19 | XMS_ITS | Data Portability ---
Author Organization [place] [facility] Address [address] [facility] [address] [place] [address] Care Team Providers Care Water Treatment Plant Supervisor Name Role Phone KHOASAMANTA VLADISLAV Primary Care [...] biopsy, prostate - PSA 5.9 2022 023 [facility], [address], [place], [place], [address], 3 15:06:01 PSA, total, serum or plasma [address] [facility], [address] [place], [address], 4 10:23:41 biopsy, prostate 2022 023 [facility], [address], [place], [place], [address], 3 09:28:31 PSA, total, serum or plasma [address] [facility], [address] [place], [address], 4 10:23:41 Referral None recorded. Procedures None recorded. Surgeries None recorded. Imaging MRI, prostate, w/wo contrast - due November 20232022 023 [email or web address] [facility], [address] [place], [address], 4 10:42:36 Medication Orders levofloxaci n 500 mg tablet 2022 023 [id number], [address] [place], [address], 3 12:45:57 Flomax 0.4 mg capsule 2022 023 [id number], [address] [place], [address], 3 10:47:05 ceftriaxone 1 gram solution for injection 2022 023 [id number], [address] [place], [address], 3 12:45:50 Patient TargetsNo targets recorded. Patient Instructions Encounter Date Encounter Id Patient Instructions Last Modified By Organization Details Last Modified Time 04/13/2023 [id number] BPH/weak stream: Discussed options including medications, catheters, [...] were answered. Not available 04/13/2023 10:53:42 04/20/2023 [id number] Post-prostate biopsy protocol. Can expect blood in [...] with results. Not available 04/19/2023 21:56:41 06/01/2023 [id number] Prostate Cancer: Pathology: Adenocarcinoma of the prostate Clinical Stage: [id number] Davy Grade Group: 1 National Comprehensive Cancer [...] Name Description Value Unit Range Abnormal Flag Note LastModifiedBy Organization Detail LastModifiedTime 04/24/2004/20/2023 US, prost ate No observ ation record ed. [email or web address] Not Available 09:01:04 Result Notes None recorded. Problems Name Problem SNOMED Code Status Onset Date Resolution Date Notes Provider Name and Address Organization Details Recorded Time Slowing of urinary stream 71534264 Active 2022 Abel Daugherty MD [address] [place] [address],[address] [place] [address], [phone], [facility] 3 10:46:43 Lower urinary tract symptoms due to benign prostatic hypertrophy 8930070328892 1 Active 2022 Abel Daugherty MD [address] [place] [address],[address] [place] [address], [phone], [facility] 3 10:46:44 Prostate specific antigen above reference range 778304047 Active 2022 Abel Daugherty MD [address] [place] [address],[address] [place] [address], [phone], [facility] 3 10:49:52 Anxiety 93400359 Active 2022 Se Meath null, [facility] 3 12:47:40 Depressive disorder 80344429 Active 2022 Se Meat null, [facility] 3 12:47:44 Neuropathy 982428654 Active 2022 Se Meat null, [facility] 3 12:48:03 Hypertensiv e disorder 46643407 Active 2022 Se Meat null, [facility] 3 12:48:08 Hyperlipide antoni 82536794 Active 2022 Se Meat null, [facility] 3 12:48:14 Gout 23771465 Active 2022 Se Meat null, [facility] 3 12:48:23 Chronic obstructive pulmonary disease 95129182 Active 2022 Se Meat null, [facility] 3 12:48:31 Kidney stone 75786317 Active 2022 Se Meat null, [facility] 3 12:48:39 Diabetes mellitus 31081563 Active 2022 Se Meat null, [facility] 3 12:48:51 Problem Notes None recorded. Procedures Surgical History Date Name Laterality Status Provider Name and Address Organization Details Recorded Time 04/20/20 23 Prostate Biopsy Procedure completed Abel Daugherty MD [address] [facility],[address], [place], [address], [facility] 04/20/2023 14:19:12 04/20/20 23 Rocephin/Ceftriaxo ne completed Aditya Humacao null, [facility] 04/20/2023 13:35:14 11/15/19 23 Colonoscopy completed Seshahram Friedman [facility], [facility] 05/29/2023 12:46:57 Cholecystectomy completed Francine Jones null, [facility] 04/13/2023 10:26:37 Vasectomy completed Francine Jones [facility], [facility] 04/13/2023 10:26:43 procedure on kidney completed Francine Jones [facility], [place] [facility] 04/13/2023 10:27:18 Removal of sperm duct(s) completed Not Available Health Note 05/28/2023 18:22:57 Laparoscopic cholecystectomy completed Not Available Health Note 05/28/2023 18:22:58 Fragmenting of kidney stone completed Not Available Health Note 05/28/2023 18:22:58 Imaging Results Imaging Date Name Status LastModified by Organiz ation Details LastModified Time 04/20/2023 US, prostate completed [email or web address] Informati on not available 04/24/2023 09:01:04 Procedure Notes None recorded. Medical Equipment None Reported. Allergies Allergen ID Allergen Name Allergen Category Reaction Reaction Severity Criticality Documentation Date Start Date Code Code System Note Provider Name and Address Organization Details Recorded Time 585083 Zosyn medicatio n rash Not available Not available 05/28/2023 83759 RxNorm Not Available Health Note 18:22:57 Medications [...] Updated DateTime 04/13/2023 180.34 cm 30.7 kg/m2 99060.32 g Francine Jones [facility] 04/13/2023 10:23:09 Date Recorded Body weight Body mass index (BMI) Body height Provider Name and Address Organization Details Last Updated DateTime 06/01/2023 37803.14162 22917 g 30.7 kg/m2 180.34 cm Not Available [...] Has Tobacco Cessation Counseling Been Provided? No Information not available 04/13/2023 How Many Years Have You Smoked Tobacco? 15 [email or web address] Information not available 05/28/2023 Do You Or Have You Ever Used Any Other Forms Of Tobacco Or Nicotine? No [email or web address] Information not available 04/13/2023 How Many Days [...] of cardiac disorder Medical History Condition Response Diabetes Y Sexually Transmitted Infection N Bleeding Disorder N High Blood Pressure Y Kidney Stones Y Cancer N Lung Disease N Depression N High Cholesterol N GERD/Acid Reflux N Heart Disease N Immunizations Vaccine Type Date Status Provider Name and Address Organization Details Recorded Time pneumococcal, unspecified formulation 04/16/2021 completed Se Meath null, [facility] 06/01/2023 16:14:03 influenza, unspecified formulation 05/01/2023 completed Se Meath null, [facility] 06/01/2023 16:14:03 SARS-COV-2 (COVID-19) vaccine, UNSPECIFIED 04/16/2022 completed Se Meath null, [facility] 06/01/2023 16:14:03 Influenza, split virus, quadrivalent, preservative 06/16/2017 completed Se Meath null, [facility] 05/29/2023 12:46:20 Influenza, adjuvanted, quadrivalent, PF 04/24/2022 completed Se Meat null, [facility] 05/29/2023 12:46:20 Influenza, adjuvanted, quadrivalent, PF 05/10/2021 completed Se Meath null, [facility] 05/29/2023 12:46:20 COVID-19, mRNA, LNP-S, PF, 100 mcg/0.5mL dose or 50 mcg/0.25mL dose 10/02/2020 completed Se Meat null, [facility] 05/29/2023 12:46:20 COVID-19, mRNA, LNP-S, PF, 100 mcg/0.5mL dose or 50 mcg/0.25mL dose 10/30/2020 completed Se Meath null, [facility] 05/29/2023 12:46:20 COVID-19, mRNA, LNP-S, bivalent, PF, 50 mcg/0.5 mL or 25mcg/0.25 mL dose 05/26/2022 completed Se Meat null, [facility] 05/29/2023 12:46:20 pneumococcal polysaccharide PPV23 05/28/2018 completed Se Meat null, [facility] 05/29/2023 12:46:20 Tdap 09/15/2015 completed Se Meath null, [facility] 05/29/2023 12:46:20 Pneumococcal conjugate PCV 13 05/25/2016 completed Se Meath null, [facility] 05/29/2023 12:46:20 Influenza, split virus, trivalent, preservative 05/04/2018 completed Se Meath null, [facility] 05/29/2023 12:46:20 Influenza, split virus, quadrivalent, PF 05/16/2019 completed Se Meath null, [facility] 05/29/2023 12:46:20 Influenza, high-dose, quadrivalent, PF 04/26/2023 completed Se Meath null, [facility] 06/01/2023 16:14:03 Past Encounters Encounter ID Performer Location Encounter Start Date Encounter Closed Date Diagnosis/Indication Diagnosis SNOMED-CT Code Diagnosis ICD10 Code [id number] MD Sam [facility] [address] 04/13/2023 10:18:27 04/13/2023 11:21:30 Slowing of urinary stream 82803353 R39.12 Lower urin sarah tract symptoms due to benign prostatic hypertrophy 2235136537 9101 N40.1 Prostate s pecific antigen above reference range 413874085 R97.20 [id number] MD Olvin CedenoWoblu [address] [address] 04/20/2023 13:27:16 04/20/2023 14:34:21 Prostate specific antigen above reference range 047116813 R97.20 [id number] [facility] [address] 04/20/2023 13:26:40 04/20/2023 13:36:21 Prostate specific antigen above reference range 080480095 R97.20 [id number] MD [facility]vin [facility] [address] [address] 06/01/2023 16:00:42 06/02/2023 08:50:57 Malignant tumor of prostate 360171985 C61 History of calculus of kidney 609533315 Z87.442 Lower urin sarah tract symptoms due to benign prostatic hypertrophy 3310652224 9101 N40.1 Health Concerns Section Related Observation LastModified by Organization Detai ls LastModified Time None Recorded Concern Status LastModified by Organization Details LastModified Time None Recorded Advance Directives Directive None Recorded Payers Encounter Date Sequence Insurance Name Policy Number Policy Mcgill Covered Member ID Mcgill Member ID Guarantor Name 04/13/2023 1 [facility] (MEDICARE REPLACEMENT/A DVANTAGE - PPO) [id number] Sanjay Hernadezi [id number] Matt Barney 04/20/2023 1 [facility] (MEDICARE REPLACEMENT/A DVANTAGE - PPO) [id number] Sanjay Hernadezi [id number] Matt Barney 04/20/2023 1 [facility] (MEDICARE REPLACEMENT/A DVANTAGE - PPO) [id number] Sanjay Hernadezi [id number] Matt Hernadezi 06/01/2023 1 [facility] (MEDICARE REPLACEMENT/A DVANTAGE - PPO) [id number] Sanjay Hernadezi [id number] Matt Barney Notes Date Note Type Note Provider Name [...] cancer in two sisters. Abel Daugherty MD [address] [facility],[address], [place], [address], [facility] 04/13/2023 10:54:01 04/20/2023 text/html HPI Notes: [...] cancer in two sisters. Abel Daugherty MD [address] [place] [address],[address], [place], [address], [facility] 04/20/2023 14:19:33 06/01/2023 text/html HPI Notes: [...] ultrasound guided prostate biopsy on 04/20/2023. Pathology: [id number], [place] Grade Group 1 (<5% of 1/12 cores), iPSA 5.9 ng/mL He is here to discuss next steps in management. He has benign prostatic hyperplasia with lower urinary tract symptoms. He currently manages his symptoms with tamsulosin 0.4 mg daily. He has a history of nephrolithiasis. He has had no recent acute stone episodes. He denies flank pain or gross hematuria. Davey Pradhan MD [address] [place] [address],[address], [place], [address], [facility] [place] [facility] 06/02/2023 00:01:45
== END 2024-03-13 09:31 | disposition home or self-care (01) ==
LOC: NFLDREF 03-14 11:14
PROVIDERS: PCP Physician Assistant Medical; Referring Provider Physician Assistant Medical; Visit Provider Physician Assistant Medical
DX: Z00.00 Encounter for general adult medical examination without abnormal findings (principal); E11.9 Type 2 diabetes mellitus without complications; I10 Essential (primary) hypertension; E78.5 Hyperlipidemia, unspecified; F41.9 Anxiety disorder, unspecified; F32.A Depression, unspecified; D72.829 Elevated white blood cell count, unspecified; C61 Malignant neoplasm of prostate; Z12.5 Encounter for screening for malignant neoplasm of prostate; Z11.59 Encounter for screening for other viral diseases; Z11.4 Encounter for screening for human immunodeficiency virus [HIV]; Z11.51 Encounter for screening for human papillomavirus (HPV)
CPT/HCPCS: 80053; 80061; 82043; 82570; 82607; 84443; 86703; 86803; G0103

== ENCOUNTER 2024-04-22 12:22 | Outpatient (CLI) | payer MEDICARE, SELFPAY ==
--- OUTSIDE RECORDS SUMMARY | 2024-04-22 12:26 | XMS_ITS | Clinical Summary ---
Author Organization [facility] Address [address] [place] [address] Care Team Providers Care Reverberatory Furnace Operator Name Role Phone Unavailable Primary Care Provider Unavailabl e Source Comments Patient records contain information from all sites at [facility]. For routine questions regarding patient records, call [phone] during business hours, M-F 8:00 AM - 5:00 PM Central Time. Record requests for emergency care only can be directed to [phone] at any time.[facility] Allergies Active Allergy Reactions Criticality Noted Date [...] drink = 0.6 oz pur e alcohol) [facility] Utilities Answer Date Recorded In the past 12 months has e electric, gas, oil, or water [facility] threatened to shut off services in your [...] your living situation today? I have a [facility] place to live 12/04/2023 Sex [...] of 3 - Risk 3-dose series) 2016 Pneumococcal vaccine (65+ ye ars) (3 of 3 - PPSV23 or PCV20) 05/28/2023 04/16/2021, 05/28/2018, 05/25/2016, Additional history exists Depression Screening (Annual PHQ-2) 07/17/2023 COVID-19 Vaccine (4 - 2023-2 5 season) 2024 05/26/2022, 10/30/2020, 10/02/2020 Influenza Vaccine (#1) 2024 , 04/26/2023, 04/24/2022, [...] Completed 12/04/2023 Medical Devices Implanted Type Area Chief Juvenile Probation Officer Device Identifier Shelf Expiration Date Model / Serial / Lot Clp Hmol Plmr Lg - [id number] Implanted:Qty: 1 on 12/04/2023 by Bobby Tomlinson M.D. at [facility] Hardware e.g. pins/screws /rods [employer] [id number] 04/25/2028 [id number] / / [id number] Clp Hmol Plmr Md - [id number] Implanted:Qty: 1 on 12/04/2023 by Bobby Tomlinson M.D. at [facility] Hardware e.g. pins/screws /rods [employer] 07/25/2028 [id number] / / [id number] Clp Hmol Plmr Md - [id number] Implanted:Qty: 1 on 12/04/2023 by Bobby Tomlinson M.D. at [facility] Hardware e.g. pins/screws /rods [employer] [id number] / / [id number] Clp Hmol Plmr Lg - [id number] Implanted:Qty: 1 on 12/04/2023 by Bobby Tomlinson M.D. at [facility] Hardware e.g. pins/screws /rods [employer] [id number] 06/15/2028 [id number] / / [id number] Clp Hmol Plmr Md - [id number] Implanted:Qty: 1 on 12/04/2023 by Bobby Tomlinson M.D. at [facility] Hardware e.g. pins/screws /rods [employer] [id number] / / [id number] Clp Hmol Plmr Md - [id number] Implanted:Qty: 1 on 12/04/2023 by Bobby Tomlinson M.D. at [facility] Hardware e.g. pins/screws /rods [employer] [id number] / / [id number] Clp Hmol Plmr Lg - [id number] Implanted:Qty: 1 on 12/04/2023 by Bobby Tomlinson M.D. at [facility] Hardware e.g. pins/screws /rods [employer] [id number] 06/15/2028 [id number] / / [id number] Conversions - Default Historical Implant Device Implanted:05/12 (Quantity not on file) Ocular Lens Left: Eye Description:Body Location - Eye L. Device Status Text - OculrLens. Conversions - Default Historical Implant Device Implanted:05/12 (Quantity not on file) Ocular Lens Right: Eye Description:Body Location - Eye R. Device Status Text - OculrLens. Stent Inlay 7fr X 26cm - [id number] Implanted:Qty: 1 on 05/12/2015 Ureteral Stent [employer] Description:Device Manufactu [facility] Patient Care Division. Device Status Text - [id number]. Stent Inlay 7fr X 26cm - Reece [id number] Implanted:Qty: 1 on 05/28/2015 Ureteral Stent [employer] Description:Device Manufactu [facility] [employer] Patient Care Division. Device Status Text - [id number]. Stent Inlay 8fr X 30cm - Reece [id number] Implanted:Qty: 1 on 06/03/2016 Ureteral Stent [employer] Description:Device Manufactu [facility] [employer] Patient Care Division. Device Status Text - [id number]. Explanted Type Area Chief Juvenile Probation Officer Device Identifier Shelf Expiration Date Model / Serial / Lot Conversions - Default Historical Implant Device - [id number] Explanted:2016 (Quantity not on file) Ureteral Stent Description:Device Status Te xt - [id number]. Conversions - Default Historical Implant Device - [id number] Explanted:2016 (Quantity not on file) Ureteral Stent Description:Device Status Te xt - [id number]. Procedures Procedure Name Priority Date/Time Associated Diagnosis [...] CDT Bobby Tomlinson M.D. LAB BLOOD ADD-ON [facility] [address] [place] [address], [facility] DTL [facility] [address] [place] [address] * (ABNORMAL) Basic Metabolic Panel (11/30/2023 6:51 [...] CDT Bobby Tomlinson M.D. LAB BLOOD ADD-ON [facility] [address] [place] [address], [place] [facility] [address] [place] [address] from Last 3 Months or Most Recently Relevant to Health Maintenance Advance Directives For more information, please contact: [phone] * Full Code (Latest Code Status on File) Date Activated Date Inactivated Comments 12/04/2023 7:39 PM 12/05/2023 2:03 PM Question Answer Comments Full Code: Discussed * Full Code Date Activated Date Inactivated Comments 12/04/2023 10:21 AM 12/04/2023 7:39 PM Question Answer Comments Full Code: Discussed
--- OUTSIDE RECORDS SUMMARY | 2024-04-22 12:26 | XMS_ITS | Encounter Summary ---
Author Organization [facility] Address [address] [place] [address]. [place] [address] Care Team Providers Care Local Area Network Systems Adminstrator Name Role Phone Juventino Bay MD Primary Care Provid er Reason for Visit * Reason Onset Date Comments Orders 06/21/2022 Callback Encounter Details Date Type Department Care Team (Late st Contact Info) Description 06/21/[address] [address] Liam Castillo PA-C [address] [address] Orders (Callback/) Social History Tobacco [...] be reached at: Home number on file [phone] (home) Best Time: any Can we leave a detailed message on this number? YES Call taken on 06/21/2022 at 1:51 PM by Maira Boogie TRONICS DESIGN ENGINEER documented in this encounter Plan of Treatment Not on file documented as of this encounter Visit Diagnoses Not on filedocumented in this encounter Additional Health Concerns Assessment Noted Time PHQ-9 Depression Total Score: 0 04/29/20 15 7:23 AM CDT documented as of this encounter Care Teams Local Area Network Systems Adminstrator Relationship Specialty Start Date End Date Juventino Bay MD [address] [place] [address] PCP - General Internal Medicine 06/09/17 documented as of this encounter
--- OUTSIDE RECORDS SUMMARY | 2024-04-22 12:26 | XMS_ITS ---
Author Organization [facility] Address [address] [place] [address] Care Team Providers Care Director Of Medical Staff Services Name Role Phone Unavailable Unavailable Unavailable Surgery Details Not on file Complications Check Surgery Details section. Procedure Estimated Blood Loss Check Surgery Details section. Procedure Findings Check Surgery Details section. Procedure Specimens Taken Check Surgery Details section.
--- OUTSIDE RECORDS SUMMARY | 2024-04-22 12:26 | XMS_ITS | Encounter Summary ---
Author Organization [facility] Address [address] [place] [address] Care Team Providers Care Furnace Caretaker Name Role Phone Unavailable Primary Care Provider Unavailabl e Encounter Details Date Type Department Care Team (Late st Contact Info) Description 01/02/2024 Clinical Communication Department of Urology in [place], [place] [address] [place] [phone] Bobby Tomlinson M.D. [address] [place] [phone] Social History Tobacco Use Types Packs/Day Years Used Date Smoking Tobacco: Former Cigarettes 2 30 Passive Smoke Exposure: Past Smokeless Tobacco: Never Passive Exposure Comments:tony renyolanda did smoke when he was growing up. Alcohol Use Standard Drinks/Week Comments Not Currently 0 (1 standard drink = 0.6 oz pur e alcohol) [facility] Utilities Answer Date Recorded In the past 12 months has [facility] [employer] gas, oil, or water [employer] threatened to shut off services in your [...] your living situation today? I have a [facility] place to live 12/04/2023 Sex and Gender [...]
--- OUTSIDE RECORDS SUMMARY | 2024-04-22 12:26 | XMS_ITS | Referral Summary ---
Author Organization [facility] Address [address] [place] [address] Care Team Providers Care Mobile Qa Tester Name Role Phone Juventino Bay MD Primary [...] COMPREHENSIVE METABOLIC PANEL Routine 06/21/2017 9:16 AM AGRICULTURE SALES ACCOUNT MANAGER LIPID REFLEX TO DIRECT LDL PANEL Routine 01/12/2017 9:33 AM CDT Hyperlipidemia with target LDL less than 100 COLONOSCOPY - HIM SCAN Routine 07/17/2011 from Last 3 Months or Most Recently Relevant to Health Maintenance Results * (ABNORMAL) Comprehensive metabolic panel (06/21/2017 9:16 AM [facility]) Sodium 142 133 - 144 mmol/L 06/22/2017 9:39 AM [facility] Potassium 4.2 3.4 - 5.3 mmol/L 06/22/2017 9:39 AM [facility] Chloride 104 94 - 109 mmol/L 06/22/2017 9:39 AM [facility] Carbon Dioxide 29 20 - 32 mmol/L 06/22/2017 9:39 AM [facility] Anion Gap 9 3 - 14 mmol/L 06/22/2017 9:39 AM [facility] Glucose 107(H) 70 - 99 mg/dL 06/22/2017 9:39 AM [facility] Comment:Fasting specimen Urea Nitrogen 18 7 - 30 mg/dL 06/22/2017 9:39 AM [facility] Creatinine 1.13 0.66 - 1.25 mg/dL 06/22/2017 9:39 AM [facility] GFR Estimate 66 >60 mL/min/1.7 m2 06/22/2017 9:39 AM [facility] Comment:Non GFR Calc GFR Estimate If Black 80 >60 mL/min/1.7 m2 06/22/2017 9:39 AM [facility] Comment: GFR Calc Calcium 9.1 8.5 - 10.1 mg/dL 06/22/2017 9:39 AM [facility] Bilirubin Total 0.5 0.2 - 1.3 mg/dL 06/22/2017 9:39 AM [facility] Albumin 3.6 3.4 - 5.0 g/dL 06/22/2017 9:39 AM AGRICULTURE SALES ACCOUNT MANAGER [facility] Protein Total 6.6(L) 6.8 - 8.8 g/dL 06/22/2017 9:39 AM AGRICULTURE SALES ACCOUNT MANAGER [facility] Alkaline Phosphatase 78 40 - 150 U/L 06/22/2017 9:39 AM AGRICULTURE SALES ACCOUNT MANAGER [facility] ALT 76(H) 0 - 70 U/L 06/22/2017 9:39 AM AGRICULTURE SALES ACCOUNT MANAGER [facility] AST 35 0 - 45 U/L 06/22/2017 9:39 AM AGRICULTURE SALES ACCOUNT MANAGER [facility] Blood specimen (specimen) 06/21/2017 9:16 AM AGRICULTURE SALES ACCOUNT MANAGER 06/21/2017 9:21 AM AGRICULTURE SALES ACCOUNT MANAGER Juventino Bay MD LAB - BLOOD ORDERABLES Performing Organization Address [facility] Co de Phone Number [facility] [address] [place] [address] * (ABNORMAL) Lipid panel reflex to direct LDL (01/12/2017 9:33 AM CDT) Cholesterol 150 <200 mg/dL [facility] Triglycerides 176(H) <150 mg/dL [facility] Comment: Borderline high: ??150-199 mg/dl High: ? 200-499 mg/dl Very high: ? >499 mg/dl Fasting specimen HDL Cholesterol 38(L) >39 mg/dL [facility] LDL Cholesterol Calculated 77 <100 mg/dL [facility] Comment:Desirable: <100 mg/d l Non HDL Cholesterol 112 <130 mg/dL [facility] Blood specimen (specimen) 01/12/2017 9:33 AM CDT 01/12/2017 9:38 AM CDT Juventino Bay MD LAB - BLOOD ORDERABLES Performing Organization Address [facility] Co de Phone Number [facility] [address] [place] [address] * Colonoscopy - HIM Scan (07/17/2011) Narrative Evangelina Jasso - 07/17/2011 Information from office visit dated: 09/15/2015 [id number] Hospital/clinic-wnl Provider Outside PROCEDURES from Last 3 Months or Most Recently Relevant to Health Maintenance Care Teams Mobile Qa Tester Relationship Specialty Start Date End Date Juventino Bay MD [address] [place] [address] PCP - General Internal Medicine 06/09/17
--- OUTSIDE RECORDS SUMMARY | 2024-04-22 12:26 | XMS_ITS | Clinical Summary ---
Author Organization [facility] Address [address] [place] [address] Care Team Providers Care Carpet Installation Specialist Name Role Phone Juventino Bay MD Primary [...] 01/13/2006 ZOSTER IMMUNIZATION (1 of 2) 01/13/2006 LIPID 01/12/2018 01/12/2017, 11/0 03/2016, 09/23/2015, Additional history exists BMP 06/21/2018 06/21/2017, 12/16, 05/25/2016, Additional history exists GLUCOSE 06/21/2020 06/21/2017, 12/16, 05/25/2016, Additional history exists FALL RISK ASSESSMENT 01/13/2021 COLONOSCOPY 07/17/2021 07/17/2011 COLORECTAL CANCER SCREENING 07/17/2021 Pneumococcal Vaccine: 65+ Years (3 of 3 - PPSV23 or PCV20) 05/28/2023 05/28/2018, 05/25/2016 PHQ-2 (once per calendar year) 2023 02/07/2017, 01/11/2017, 10/19/2016, Additional history exists COVID-19 Vaccine ( - season) 2024 05/26/2022, 10/30/2020, 10/02/2020 INFLUENZA VACCINE (#1) 2024 , 04/24/2022, 05/10/2021, Additional history exists DTAP/TDAP/TD IMMUNIZATION (2 - Td or Tdap) 09/14/2025 09/15/2015 RSV VACCINE (1 - 1-dose 75+ series) 01/13/2031 HPV IMMUNIZATION Aged Out No longer e [...] COMPREHENSIVE METABOLIC PANEL Routine 06/21/2017 9:16 AM SEWING TEACHER LIPID REFLEX TO DIRECT LDL PANEL Routine 01/12/2017 9:33 AM CDT Hyperlipidemia with target LDL less than 100 COLONOSCOPY - HIM SCAN Routine 07/17/2011 from Last 3 Months or Most Recently Relevant to Health Maintenance Results * (ABNORMAL) Comprehensive metabolic panel (06/21/2017 9:16 AM [facility]) Sodium 142 133 - 144 mmol/L 06/22/2017 9:39 AM [facility] Potassium 4.2 3.4 - 5.3 mmol/L 06/22/2017 9:39 AM [facility] Chloride 104 94 - 109 mmol/L 06/22/2017 9:39 AM [facility] Carbon Dioxide 29 20 - 32 mmol/L 06/22/2017 9:39 AM [facility] Anion Gap 9 3 - 14 mmol/L 06/22/2017 9:39 AM [facility] Glucose 107(H) 70 - 99 mg/dL 06/22/2017 9:39 AM [facility] Comment:Fasting specimen Urea Nitrogen 18 7 - 30 mg/dL 06/22/2017 9:39 AM [facility] Creatinine 1.13 0.66 - 1.25 mg/dL 06/22/2017 9:39 AM [facility] GFR Estimate 66 >60 mL/min/1.7 m2 06/22/2017 9:39 AM [facility] Comment:Non GFR Calc GFR Estimate If Black 80 >60 mL/min/1.7 m2 06/22/2017 9:39 AM [facility] Comment: GFR Calc Calcium 9.1 8.5 - 10.1 mg/dL 06/22/2017 9:39 AM [facility] Bilirubin Total 0.5 0.2 - 1.3 mg/dL 06/22/2017 9:39 AM [facility] Albumin 3.6 3.4 - 5.0 g/dL 06/22/2017 9:39 AM [facility] Protein Total 6.6(L) 6.8 - 8.8 g/dL 06/22/2017 9:39 AM SEWING TEACHER [facility] Alkaline Phosphatase 78 40 - 150 U/L 06/22/2017 9:39 AM SEWING TEACHER [facility] ALT 76(H) 0 - 70 U/L 06/22/2017 9:39 AM SEWING TEACHER [facility] AST 35 0 - 45 U/L 06/22/2017 9:39 AM SEWING TEACHER [facility] Blood specimen (specimen) 06/21/2017 9:16 AM SEWING TEACHER 06/21/2017 9:21 AM SEWING TEACHER Juventino Bay MD LAB - BLOOD ORDERABLES Performing Organization Address City/[facility]/ZIP Co de Phone Number [facility] [address] [place] [address] * (ABNORMAL) Lipid panel reflex to direct LDL (01/12/2017 9:33 AM CDT) Cholesterol 150 <200 mg/dL [facility] Triglycerides 176(H) <150 mg/dL [facility] Comment: Borderline high: ??150-199 mg/dl High: ? 200-499 mg/dl Very high: ? >499 mg/dl Fasting specimen HDL Cholesterol 38(L) >39 mg/dL [facility] LDL Cholesterol Calculated 77 <100 mg/dL [facility] Comment:Desirable: <100 mg/d l Non HDL Cholesterol 112 <130 mg/dL [facility] Blood specimen (specimen) 01/12/2017 9:33 AM CDT 01/12/2017 9:38 AM CDT Juventino Bay MD LAB - BLOOD ORDERABLES Performing Organization Address City/[facility]/ZIP Co de Phone Number [facility] [address], [place] [address] * Colonoscopy - HIM Scan (07/17/2011) Narrative Evangelina Jasso - 07/17/2011 Information from office visit dated: 09/15/2015 [id number] Hospital/clinic-wn Provider Outside PROCEDURES from Last 3 Months or Most Recently Relevant to Health Maintenance Care Teams Carpet Installation Specialist Relationship Specialty Start Date End Date Juventino Bay MD [address] [place], [place] [id number] PCP - General Internal Medicine 06/09/17
--- OUTSIDE RECORDS SUMMARY | 2024-04-22 12:26 | XMS_ITS | Referral Summary ---
Author Organization [facility] Address [address] [place] [address] Care Team Providers Care Stone Splitter Name Role Phone Unavailable Primary Care Provider Unavailabl e Source Comments Patient records contain information from all sites at [facility]. For routine questions regarding patient records, call [phone] during business hours, M-F 8:00 AM - 5:00 PM Central Time. Record requests for emergency care only can be directed to [phone] at any time.[facility] Allergies Active Allergy Reactions Criticality Noted [...] drink = 0.6 oz pur e alcohol) [facility] Utilities Answer Date Recorded In the past 12 months has e electric, gas, oil, or water [employer]ys[employer] threatened to shut off services in your [...] your living situation today? I have a [facility] place to live 12/04/2023 Sex and [...] on file Medical Devices Implanted Type Area Benefits Clerk Device Identifier Shelf Expiration Date Model / Serial / Lot Clp Hmol Pl Lg - [id number] Implanted:Qty: 1 on 12/04/2023 by Bobby Tomlinson M.D. at [facility] Hardware e.g. pins/screws /rods [employer] [id number] 04/25/2028 [id number] / / [id number] Clp Hmol Plmr - [id number] Implanted:Qty: 1 on 12/04/2023 by Bobby Tomlinson M.D. at [facility] Hardware e.g. pins/screws /rods [employer] 07/25/2028 [id number] / / [id number] Clp Hmol Plmr - [id number] Implanted:Qty: 1 on 12/04/2023 by Bobby Tomlinson M.D. at [facility] Hardware e.g. pins/screws /rods [employer] [id number] / / [id number] Clp Hmol Plmr Lg - [id number] Implanted:Qty: 1 on 12/04/2023 by Bobby Tomlinson M.D. at [facility] Hardware e.g. pins/screws /rods [employer] [id number] 06/15/2028 [id number] / / [id number] Clp Hmol Plmr - [id number] Implanted:Qty: 1 on 12/04/2023 by Bobby Tomlinson M.D. at [facility] Hardware e.g. pins/screws /rods [employer] [id number] / / [id number] Clp Hmol Plmr - [id number] Implanted:Qty: 1 on 12/04/2023 by Bobby Tomlinson M.D. at [facility] Hardware e.g. pins/screws /rods [employer] [id number] / / [id number] Clp Hmol Plmr Lg - [id number] Implanted:Qty: 1 on 12/04/2023 by Bobby Tomlinson M.D. at [facility] Hardware e.g. pins/screws /rods [employer] [id number] 06/15/2028 [id number] / / [id number] Conversions - Default Historical Implant Device Implanted:05/12 (Quantity not on file) Ocular Lens Left: Eye Description:Body Location - Eye L. Device Status Text - OculrLens. Conversions - Default Historical Implant Device Implanted:05/12 (Quantity not on file) Ocular Lens Right: Eye Description:Body Location - Eye R. Device Status Text - OculrLens. Stent Inlay 7fr X 26cm - [id number] Implanted:Qty: 1 on 05/12/2015 Ureteral Stent [employer]Bard Description:Device Manufactu [facility] Patient Care Division. Device Status Text - [id number]. Stent Inlay 7fr X 26cm - Reece [id number] Implanted:Qty: 1 on 05/28/2015 Ureteral Stent C.[employer].Bard Description:Device Manufactu re[employer] Patient Care Division. Device Status Text - [id number]. Stent Inlay 8fr X 30cm - Reece [id number] Implanted:Qty: 1 on 06/03/2016 Ureteral Stent [employer]Bard Description:Device Manufactu [facility] [employer] Patient Care Division. Device Status Text - [id number]. Explanted Type Area Benefits Clerk Device Identifier Shelf Expiration Date Model / Serial / Lot Conversions - Default Historical Implant Device - [id number] Explanted:2016 (Quantity not on file) Ureteral Stent Description:Device Status Te xt - [id number]. Conversions - Default Historical Implant Device - Reece [id number] Explanted:2016 (Quantity not on file) Ureteral Stent Description:Device Status Te xt - [id number]. Procedures Procedure Name Priority Date/Time Associated Diagnosis [...] CDT Bobby Tomlinson M.D. LAB BLOOD ADD-ON [facility] [address] [place] [address], [facility] [address] [place] [address] * (ABNORMAL) Basic Metabolic Panel (11/30/2023 6:51 [...] CDT Bobby Tomlinson M.D. LAB BLOOD ADD-ON [facility] [address] [place] [address], [place] DTL [facility] [address] [place] [address] from Last 3 Months or Most Recently Relevant to Health Maintenance Advance Directives For more information, please contact: [phone] * Full Code (Latest Code Status on File) Date Activated Date Inactivated Comments 12/04/2023 7:39 PM 12/05/2023 2:03 PM Question Answer Comments Full Code: Discussed * Full Code Date Activated Date Inactivated Comments 12/04/2023 10:21 AM 12/04/2023 7:39 PM Question Answer Comments Full Code: Discussed
--- OUTSIDE RECORDS SUMMARY | 2024-04-22 12:27 | XMS_ITS | Encounter Summary ---
Author Organization [facility] Address [address] [place] [address] Care Team Providers Care Discovery Manager Name Role Phone Juventino Bay MD Primary Care Provid er Juventino Bay MD Unavailable + [phone] Juventino Bay MD Unavailable + [phone] Liam Castillo PA-C Unavailable +[phone] Liam Castillo PA-C Unavailable [phone] Encounter Details Date Type Department Care Team (Late st Contact Info) Description 02/17/2018 MyC Medical Advice [address] [place] [id number] Kate Escudero RN Social History Tobacco Use [...] documented as of this encounter Care Teams Discovery Manager Relationship Specialty Start Date End Date Juventino Bay MD [address] [address] PCP - General Internal Medicine 06/09/17 Juventino Bay MD [address] [address] PCP - Assigned PCP 01/15/17 09/18/18 Juventino Bay MD [address] [address] Assigned PCP 01/15/17 02/08/20 Liam Castillo PA-C [address] [address] Assigned Sleep Provider 09/30/20 Liam Castillo PA-C [address] [address] Assigned Neuroscience Provider 09/30/20 11/13/21 documented as of this encounter
== END 2024-04-22 12:23 | disposition home or self-care (01) ==
PROVIDERS: PCP Physician Assistant Medical; Visit Provider Physician Assistant Medical
DX: D72.829 Elevated white blood cell count, unspecified (principal); Z13.21 Encounter for screening for nutritional disorder
CPT/HCPCS: 82306; 82607

== ENCOUNTER 2024-05-02 10:57 | Outpatient (CLI) | payer MEDICARE, SELFPAY ==
--- OUTSIDE RECORDS SUMMARY | 2024-05-02 10:59 | XMS_ITS | Clinical Summary ---
Author Organization [facility] Address [address] [place] [address] Care Team Providers Care Central Supply Worker Name Role Phone Juventino Bay MD Primary [...] COMPREHENSIVE METABOLIC PANEL Routine 06/21/2017 9:16 AM VOIP ENGINEER LIPID REFLEX TO DIRECT LDL PANEL Routine 01/12/2017 9:33 AM CDT Hyperlipidemia with target LDL less than 100 COLONOSCOPY - HIM SCAN Routine 07/17/2011 from Last 3 Months or Most Recently Relevant to Health Maintenance Results * (ABNORMAL) Comprehensive metabolic panel (06/21/2017 9:16 AM [facility]) Sodium 142 133 - 144 mmol/L 06/22/2017 9:39 AM [facility] Potassium 4.2 3.4 - 5.3 mmol/L 06/22/2017 9:39 AM [facility] Chloride 104 94 - 109 mmol/L 06/22/2017 9:39 AM [facility] Carbon Dioxide 29 20 - 32 mmol/L 06/22/2017 9:39 AM [facility] Anion Gap 9 3 - 14 mmol/L 06/22/2017 9:39 AM [facility] Glucose 107(H) 70 - 99 mg/dL 06/22/2017 9:39 AM [facility] Comment:Fasting specimen Urea Nitrogen 18 7 - 30 mg/dL 06/22/2017 9:39 AM [facility] Creatinine 1.13 0.66 - 1.25 mg/dL 06/22/2017 9:39 AM [facility] GFR Estimate 66 >60 mL/min/1.7 m2 06/22/2017 9:39 AM [facility] Comment:Non GFR Calc GFR Estimate If Black 80 >60 mL/min/1.7 m2 06/22/2017 9:39 AM [facility] Comment: GFR Calc Calcium 9.1 8.5 - 10.1 mg/dL 06/22/2017 9:39 AM [facility] Bilirubin Total 0.5 0.2 - 1.3 mg/dL 06/22/2017 9:39 AM [facility] Albumin 3.6 3.4 - 5.0 g/dL 06/22/2017 9:39 AM [facility] Protein Total 6.6(L) 6.8 - 8.8 g/dL 06/22/2017 9:39 AM VOIP ENGINEER [facility] Alkaline Phosphatase 78 40 - 150 U/L 06/22/2017 9:39 AM VOIP ENGINEER [facility] ALT 76(H) 0 - 70 U/L 06/22/2017 9:39 AM VOIP ENGINEER [facility] AST 35 0 - 45 U/L 06/22/2017 9:39 AM VOIP ENGINEER [facility] Blood specimen (specimen) 06/21/2017 9:16 AM VOIP ENGINEER 06/21/2017 9:21 AM VOIP ENGINEER Juventino Bay MD LAB - BLOOD ORDERABLES Performing Organization Address City/[facility]/ZIP Co de Phone Number [facility] [address] [place] [address] * (ABNORMAL) Lipid panel reflex to direct LDL (01/12/2017 9:33 AM CDT) Cholesterol 150 <200 mg/dL [facility] Triglycerides 176(H) <150 mg/dL [facility] Comment: Borderline high: ??150-199 mg/dl High: ? 200-499 mg/dl Very high: ? >499 mg/dl Fasting specimen HDL Cholesterol 38(L) >39 mg/dL [facility] LDL Cholesterol Calculated 77 <100 mg/dL [facility] Comment:Desirable: <100 mg/d l Non HDL Cholesterol 112 <130 mg/dL [facility] Blood specimen (specimen) 01/12/2017 9:33 AM CDT 01/12/2017 9:38 AM CDT Juventino Bay MD LAB - BLOOD ORDERABLES Performing Organization Address City/[facility]/ZIP Co de Phone Number [facility] [address], [place] [address] * Colonoscopy - HIM Scan (07/17/2011) Narrative Evangelina Jasso - 07/17/2011 Information from office visit dated: 09/15/2015 [id number] Hospital/clinic-wn Provider Outside PROCEDURES from Last 3 Months or Most Recently Relevant to Health Maintenance Care Teams Central Supply Worker Relationship Specialty Start Date End Date Juventino Bay MD [address] [place], [place] [address] PCP - General Internal Medicine 06/09/17
--- OUTSIDE RECORDS SUMMARY | 2024-05-02 10:59 | XMS_ITS | Referral Summary ---
Author Organization [facility] Address [address] [place] [address] Care Team Providers Care Cleaner Wall Name Role Phone Unavailable Primary Care Provider Unavailabl e Source Comments Patient records contain information from all sites at [facility]. For routine questions regarding patient records, call [phone] during business hours, M-F 8:00 AM - 5:00 PM Central Time. Record requests for emergency care only can be directed to [phone] at any time.[facility] Allergies Active Allergy Reactions Criticality Noted Date Comments Piperacillin-Tazobactam Hives (Reselect Reaction),Rash 03/16/2017 Medications amLODIPine-olme sartan (DIVINE) 5-20 mg per tablet Take 1 tablet by mouth daily. 3 Active metFORMIN (GLUCOPHAGE) 1,000 mg tablet Take 1,000 mg by mouth 2 (two) times a day with meals. 3 Active atorvastatin (LIPITOR) 20 mg tablet Take 20 mg by mouth at bedtime. 7 Active metoprolol tartrate (LOPRESSOR) 100 mg tablet Take 100 mg by mouth 2 (two) times a day. 3 Active montelukast (SINGULAIR) 10 mg tablet Take 10 mg by mouth at bedtime. 3 Active multivitamin tablet Take 1 tablet by mouth every morning. 7 Active cetirizine (ZyrTEC) 10 mg tablet Take 10 mg by mouth daily. Active LANCETS MISC Use to test blood sugar 1 times daily or as directed. 7 Active blood sugar diagnostic strips (Blood Glucose Test Strips) Use to test blood sugars 1 times daily or as directed 7 Active UNABLE TO FIND Use to test blood sugar one times daily or as directed. 7 Active aspirin [address] tablet Take 1 tablet (81 mg total) by mouth daily. May resume on MondayNovember 16 4 Active acetaminophen (TYLENOL) 500 mg tablet Take 2 tablets (1,000 mg total) by mouth every 6 (six) hours. 80 tablet 1 4 Active polyethylene glycol (MIRALAX) 17 gram/dose oral powder Take 17 g by mouth daily. Dissolve each 17 g dose in 240 mL (8 ounces) of beverage. To prevent constipation while on opioids and bladder spasm medications 510 g 4 Active Additional Information Patient not taking.Reported on 12/12/2023 sennosides-docu sate sodium (Senna with Docusate Sodium) 8.6-50 mg per tablet Take 1 tablet by mouth 2 (two) times a day. To prevent constipation, while on opioids and bladder spasm medications 30 tablet 1 4 Active traMADoL (ULTRAM) 50 mg tabletIndicatio ns:Acute Pain Take 1 tablet (50 mg total) by mouth every 6 (six) hours as needed for severe pain or score 7-10 of 10 (for pain not relieved by acetaminophen) 10 tablet 12/05/2023 11:08 AM CDT 4 Active Additional Information Patient not taking.Reported on 12/12/2023 bacitracin 500 unit/gram ointment Apply 1 Application topically 2 (two) times a day. Apply to the head of the penis while catheter is in place. 30 g 4 Active cefdinir (OMNICEF) 300 mg capsuleIndicati ons:Primary Malignant Neoplasm Of Prostate (HCC) Take 1 [...] in the pm after removal). 2 capsule 4 Active tadalafiL (Cialis) 5 mg tablet Take 1 tablet (5 mg total) by mouth daily. Can take up to 20mg in 24 hrs. Take 1 hour before sexual activity. 90 tablet 11 4 Active Active Problems Problem Noted Date Diagnosed [...] drink = 0.6 oz pur e alcohol) [facility] Utilities Answer Date Recorded In the past 12 months has e Source MDx, gas, oil, or water [facility] threatened to shut off services in your [...] your living situation today? 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 at [facility] Hardware e.g. pins/screws /rods [employer] [id number] 04/25/2028 [id number] / / [id number] - [id number] Implanted:Qty: 1 on 12/04/2023 by Bobby Tomlinson M.D. at [facility] Hardware e.g. pins/screws /rods [employer] 07/25/2028 [id number] / / [id number] Clp Hmol Plmr - [id number] Implanted:Qty: 1 on 12/04/2023 by Bobyb Tomlinson M.D. at [facility] Hardware e.g. pins/screws /rods [employer] [id number] / / [id number] Clp Hmol Plmr Robert - [id number] Implanted:Qty: 1 on 12/04/2023 by Bobby Tomlinson M.D. at [facility] Hardware e.g. pins/screws /rods [employer] [id number] 06/15/2028 [id number] / / [id number] Clp Hmol Plmr - [id number] Implanted:Qty: 1 on 12/04/2023 by Bobby Tomlinson M.D. at [facility] Hardware e.g. pins/screws /rods [employer] [id number] / / [id number] Clp Hmol Plmr - [id number] Implanted:Qty: 1 on 12/04/2023 by Bobby Tomlinson M.D. at [facility] Hardware e.g. pins/screws /rods [employer] [id number] / / [id number] [facility] Lg - [id number] Implanted:Qty: 1 on 12/04/2023 by Bobby Tomlinson M.D. at [facility] Hardware e.g. pins/screws /rods [employer] [id number] 06/15/2028 [id number] / / [id number] Conversions - Default Historical Implant Device Implanted:05/12 (Quantity not on file) Ocular Lens Left: Eye Description:Body Location - Eye L. Device Status Text - OculrLens. Conversions - Default Historical Implant Device Implanted:05/12 (Quantity not on file) Ocular Lens Right: Eye Description:Body Location - Eye R. Device Status Text - OculrLens. Stent Inlay 7fr X 26cm - [id number] Implanted:Qty: 1 on 05/12/2015 Ureteral Stent C.R.Bard Description:Device Manufactu [facility] Bard Patient Care Division. Device Status Text - [id number]. Stent Inlay 7fr X 26cm - Reece [id number] Implanted:Qty: 1 on 05/28/2015 Ureteral Stent C.R.Bard Description:Device Manufactu [facility] Bard Patient Care Division. Device Status Text - [id number]. Stent Inlay 8fr X 30cm - Reece [id number] Implanted:Qty: 1 on 06/03/2016 Ureteral Stent C.R.Bard Description:Device Manufactu [facility] Bard Patient Care Division. Device Status Text - [id number]. Explanted Type Area Coal Hiker Device Identifier Shelf Expiration Date Model / Serial / Lot Conversions - Default Historical Implant Device - [id number] Explanted:2016 (Quantity not on file) Ureteral Stent Description:Device Status Te xt - [id number]. Conversions - Default Historical Implant Device - [id number] Explanted:2016 (Quantity not on file) Ureteral Stent Description:Device Status Te xt - [id number]. Procedures Procedure Name Priority Date/Time Associated Diagnosis [...] 6:51 AM CDT 11/30/2023 7:15 AM CDT us Bobby Tomlinson M.D. LAB BLOOD ADD-ON Final Result [facility] [address] [place] [address], [facility] [address] [place] [address] * (ABNORMAL) Basic Metabolic Panel (11/30/2023 6:51 [...] 6:51 AM CDT 11/30/2023 7:30 AM CDT us Bobby Tomlinson M.D. LAB BLOOD ADD-ON Final Result [facility] [address] [place] [address], [place] [facility] [address] [place] [address] from Last 3 Months or Most Recently Relevant to Health Maintenance Insurance [facility] Address: [facility] [address] [place] [address] Advance Directives For more information, please contact: [phone] * Full Code (Latest Code Status on File) Date Activated Date Inactivated Comments 12/04/2023 7:39 PM 12/05/2023 2:03 PM Question Answer Comments Full Code: Discussed * Full Code Date Activated Date Inactivated Comments 12/04/2023 10:21 AM 12/04/2023 7:39 PM Question Answer Comments Full Code: Discussed
--- OUTSIDE RECORDS SUMMARY | 2024-05-02 10:59 | XMS_ITS ---
Author Organization [facility] Address [address] [place] [address] Care Team Providers Care Dietitian Teacher Name Role Phone Unavailable Unavailable Unavailable Surgery Details Not on file Complications Check Surgery Details section. Procedure Estimated Blood Loss Check Surgery Details section. Procedure Findings Check Surgery Details section. Procedure Specimens Taken Check Surgery Details section.
--- OUTSIDE RECORDS SUMMARY | 2024-05-02 10:59 | XMS_ITS | Clinical Summary ---
Author Organization [facility] Address [address] [place] [address] Care Team Providers Care Workers Compensation Examiner Name Role Phone Unavailable Primary Care Provider Unavailabl e Source Comments Patient records contain information from all sites at [facility]. For routine questions regarding patient records, call [phone] during business hours, M-F 8:00 AM - 5:00 PM Central Time. Record requests for emergency care only can be directed to [phone] at any time.[facility] Allergies Active Allergy Reactions Criticality Noted [...] drink = 0.6 oz pur e alcohol) [facility] Utilities Answer Date Recorded In the past 12 months has e [employer], gas, oil, or water [employer] threatened to shut off services in [...] your living situation today? 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 at [facility] Hardware e.g. pins/screws /rods [employer] [id number] 04/25/2028 [id number] / / [id number] Clp Hmol Plmr Md - [id number] Implanted:Qty: 1 on 12/04/2023 by Bobby Tomlinson M.D. at [facility] Hardware e.g. pins/screws /rods [employer] 07/25/2028 [id number] / / [id number] - [id number] Implanted:Qty: 1 on 12/04/2023 by Bobby Tomlinson M.D. at [facility] Hardware e.g. pins/screws /rods [employer] [id number] / / [id number] Clp Hmol Plmr Lg - [id number] Implanted:Qty: 1 on 12/04/2023 by Bobby Tomlinson M.D. at [facility] Hardware e.g. pins/screws /rods [employer] [id number] 06/15/2028 [id number] / / [id number] - [id number] Implanted:Qty: 1 on 12/04/2023 by Bobby Tomlinson M.D. at [facility] Hardware e.g. pins/screws /rods [employer] [id number] / / [id number] Clp Hmol Plmr - [id number] Implanted:Qty: 1 on 12/04/2023 by Bobby Tomlinson M.D. at [facility] Hardware e.g. pins/screws /rods [employer] [id number] / / [id number] Clp Hmol Plmr Lg - [id number] Implanted:Qty: 1 on 12/04/2023 by Bobby Tomlinson M.D. at [facility] Hardware e.g. pins/screws /rods [employer] [id number] 06/15/2028 [id number] / / [id number] Conversions - Default Historical Implant Device Implanted:05/12 (Quantity not on file) Ocular Lens Left: Eye Description:Body Location - Eye L. Device Status Text - OculrLens. Conversions - Default Historical Implant Device Implanted:05/12 (Quantity not on file) Ocular Lens Right: Eye Description:Body Location - Eye R. Device Status Text - OculrLens. Stent Inlay 7fr X 26cm - [id number] Implanted:Qty: 1 on 05/12/2015 Ureteral Stent C.R.Bard Description:Device Manufactu [facility] Bard Patient Care Division. Device Status Text - [id number]. Stent Inlay 7fr X 26cm - Reece [id number] Implanted:Qty: 1 on 05/28/2015 Ureteral Stent C.R.Bard Description:Device Manufactu [facility] Bard Patient Care Division. Device Status Text - [id number]. Stent Inlay 8fr X 30cm - Reece [id number] Implanted:Qty: 1 on 06/03/2016 Ureteral Stent C.R.Bard Description:Device Manufactu [facility] [employer] Patient Care Division. Device Status Text - [id number]-[id number]. Explanted Type Area Director Of Vocational Guidance Device Identifier Shelf Expiration Date Model / Serial / Lot Conversions - Default Historical Implant Device - [id number] Explanted:2016 (Quantity not on file) Ureteral Stent Description:Device Status Te xt - [id number]. Conversions - Default Historical Implant Device - Reece [id number] Explanted:2016 (Quantity not on file) Ureteral Stent Description:Device Status Te xt - [id number]. Procedures Procedure Name Priority Date/Time Associated Diagnosis [...] Tomlinson M.D. LAB BLOOD ADD-ON Final Result [address] [address], [facility] [address] [address] * (ABNORMAL) Basic Metabolic Panel (11/30/2023 6:51 AM CDT) Pathologist [facility] Potassium, S 4.9 3.6 - 5.2 mmol/L [...] CDT Bobby Tomlinson M.D. LAB BLOOD ADD-ON Final Result [facility] [address] [place] [address], [place] DTL [facility] [address] [place] [address] from Last 3 Months or Most Recently Relevant to Health Maintenance Insurance [facility] Advance Directives For more information, please contact: [phone] * Full Code (Latest Code Status on File) Date Activated Date Inactivated Comments 12/04/2023 7:39 PM 12/05/2023 2:03 PM Question Answer Comments Full Code: Discussed * Full Code Date Activated Date Inactivated Comments 12/04/2023 10:21 AM 12/04/2023 7:39 PM Question Answer Comments Full Code: Discussed
--- OUTSIDE RECORDS SUMMARY | 2024-05-02 10:59 | XMS_ITS | Encounter Summary ---
Author Organization [facility] Address [address] [place] [address] Care Team Providers Care Fast Food Shift Lead Name Role Phone Unavailable Primary Care Provider Unavailabl e Encounter Details Date Type Department Care Team (Late st Contact Info) Description 01/02/2024 Clinical Communication Department of Urology in [place], [place] [address] [place] [phone] Bobby Tomlinson M.D. [address] [place] [phone] Social History Tobacco Use Types Packs/Day Years Used Date Smoking Tobacco: Former Cigarettes 2 30 Passive Smoke Exposure: Past Smokeless Tobacco: Never Passive Exposure Comments:tony renyolanda did smoke when he was growing up. Alcohol Use Standard Drinks/Week Comments Not Currently 0 (1 standard drink = 0.6 oz pur e alcohol) [facility] Utilities Answer Date Recorded In the past 12 months has [facility] [employer] gas, oil, or water [employer] threatened to shut off services in your [...] your living situation today? 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 - 01/02/2024 8:41 PM CDT Spoke He will keep me posted * Telephone Encounter - Bessie Marie, RPedroNPedro - 01/02/2024 4:28 PM CDT SUBJECTIVE CHIEF [...]
--- NOTE | 2024-05-02 11:00 | CRLHL7_ITS ---
For Patients: As a result of the Century Cures Act, medical imaging exams and procedure reports are released immediately into your electronic medical record. You may view this report before your referring provider. If you have questions, please contact your health care provider. INDICATION: Lung cancer screening. History of smoking. High risk patient. TECHNIQUE: Low-dose lung cancer screening non-contrast CT chest. Dose reduction techniques were used. COMPARISON: Chest radiographs 02/23/2018. This is a baseline CT exam FINDINGS: NODULES: Few small, sub 6 millimeter pulmonary nodules. A brewery representative nodule a 4 x 5 millimeter triangular subpleural nodule in the right middle lobe along the major fissure (series 3 image 110). LUNGS AND PLEURA: Mild centrilobular emphysema. Mild diffuse large airways thickening. MEDIASTINUM: No lymphadenopathy. CORONARY ARTERY CALCIFICATION: Mild LIMITED UPPER ABDOMEN: Status post cholecystectomy. MUSCULOSKELETAL: Mild thoracic spondylosis IMPRESSION: 1. Lung-RADS category 2. Benign. Based on imaging features or indolent behavior. 2. Management: Recommend annual screening with low-dose CT in 12 months. Please note that all CT scans at this facility use dose modulation, iterative reconstruction, and/or weight-based dosing when appropriate to reduce radiation dose to as low as reasonably achievable. Dictated by Noel Barros MD @ 05/06/2024 6:31:31 AM (Electronically Signed)
--- OUTSIDE RECORDS SUMMARY | 2024-05-02 11:00 | XMS_ITS | Encounter Summary ---
Author Organization [facility] Address [address] [place] [address] Care Team Providers Care Window Treatment Installer Name Role Phone Juventino Bay MD Primary Care Provid er Juventino Bay MD Unavailable + [phone] Juventino Bay MD Unavailable + [phone] Liam Castillo PA-C Unavailable [phone] Liam Castillo PA-C Unavailable [phone] Encounter Details Date Type Department Care Team (Late st Contact Info) Description 02/17/2018 MyC Medical Advice [address] [place] [phone] Kate Escudero RN Social History Tobacco Use [...] documented as of this encounter Care Teams Window Treatment Installer Relationship Specialty Start Date End Date Juventino Bay MD [address] [address] PCP - General Internal Medicine 06/09/17 Juventino Bay MD [address] [address] PCP - Assigned PCP 01/15/17 09/18/18 Juventino Bay MD [address] [address] Assigned PCP 01/15/17 02/08/20 Liam Castillo PA-C [address] [place] [address] Assigned Sleep Provider 09/30/20 Liam Castillo PA-C [address] [place] [address] Assigned Neuroscience Provider 09/30/20 11/13/21 documented as of this encounter
--- OUTSIDE RECORDS SUMMARY | 2024-05-02 11:00 | XMS_ITS | Referral Summary ---
Author Organization [facility] Address [address] [place] [address] Care Team Providers Care Clinical Research Nurse Coordinator Name Role Phone Juventino Bay MD Primary [...] COMPREHENSIVE METABOLIC PANEL Routine 06/21/2017 9:16 AM COMMISSIONING ENGINEER LIPID REFLEX TO DIRECT LDL PANEL Routine 01/12/2017 9:33 AM CDT Hyperlipidemia with target LDL less than 100 COLONOSCOPY - HIM SCAN Routine 07/17/2011 from Last 3 Months or Most Recently Relevant to Health Maintenance Results * (ABNORMAL) Comprehensive metabolic panel (06/21/2017 9:16 AM [facility]) Sodium 142 133 - 144 mmol/L 06/22/2017 9:39 AM [facility] Potassium 4.2 3.4 - 5.3 mmol/L 06/22/2017 9:39 AM [facility] Chloride 104 94 - 109 mmol/L 06/22/2017 9:39 AM [facility] Carbon Dioxide 29 20 - 32 mmol/L 06/22/2017 9:39 AM [facility] Anion Gap 9 3 - 14 mmol/L 06/22/2017 9:39 AM [facility] Glucose 107(H) 70 - 99 mg/dL 06/22/2017 9:39 AM [facility] Comment:Fasting specimen Urea Nitrogen 18 7 - 30 mg/dL 06/22/2017 9:39 AM [facility] Creatinine 1.13 0.66 - 1.25 mg/dL 06/22/2017 9:39 AM [facility] GFR Estimate 66 >60 mL/min/1.7 m2 06/22/2017 9:39 AM [facility] Comment:Non GFR Calc GFR Estimate If Black 80 >60 mL/min/1.7 m2 06/22/2017 9:39 AM [facility] Comment: GFR Calc Calcium 9.1 8.5 - 10.1 mg/dL 06/22/2017 9:39 AM [facility] Bilirubin Total 0.5 0.2 - 1.3 mg/dL 06/22/2017 9:39 AM [facility] Albumin 3.6 3.4 - 5.0 g/dL 06/22/2017 9:39 AM COMMISSIONING ENGINEER [facility] Protein Total 6.6(L) 6.8 - 8.8 g/dL 06/22/2017 9:39 AM COMMISSIONING ENGINEER [facility] Alkaline Phosphatase 78 40 - 150 U/L 06/22/2017 9:39 AM COMMISSIONING ENGINEER [facility] ALT 76(H) 0 - 70 U/L 06/22/2017 9:39 AM COMMISSIONING ENGINEER [facility] AST 35 0 - 45 U/L 06/22/2017 9:39 AM COMMISSIONING ENGINEER [facility] Blood specimen (specimen) 06/21/2017 9:16 AM COMMISSIONING ENGINEER 06/21/2017 9:21 AM COMMISSIONING ENGINEER Juventino Bay MD LAB - BLOOD ORDERABLES Performing Organization Address [facility] Co de Phone Number [facility] [address] [place] [address] * (ABNORMAL) Lipid panel reflex to direct LDL (01/12/2017 9:33 AM CDT) Cholesterol 150 <200 mg/dL [facility] Triglycerides 176(H) <150 mg/dL [facility] Comment: Borderline high: ??150-199 mg/dl High: ? 200-499 mg/dl Very high: ? >499 mg/dl Fasting specimen HDL Cholesterol 38(L) >39 mg/dL [facility] LDL Cholesterol Calculated 77 <100 mg/dL [facility] Comment:Desirable: <100 mg/d l Non HDL Cholesterol 112 <130 mg/dL [facility] Blood specimen (specimen) 01/12/2017 9:33 AM CDT 01/12/2017 9:38 AM CDT Juventino Bay MD LAB - BLOOD ORDERABLES Performing Organization Address [facility] Co de Phone Number [facility] [address] [place] [address] * Colonoscopy - HIM Scan (07/17/2011) Narrative Evangelina Jasso - 07/17/2011 Information from office visit dated: 09/15/2015 [id number] Provider Outside PROCEDURES from Last 3 Months or Most Recently Relevant to Health Maintenance Care Teams Clinical Research Nurse Coordinator Relationship Specialty Start Date End Date Juventino Bay MD [address] [place] [address] PCP - General Internal Medicine 06/09/17
--- OUTSIDE RECORDS SUMMARY | 2024-05-02 11:00 | XMS_ITS | Encounter Summary ---
Author Organization [facility] Address [address] [place] [address]. [place] [address] Care Team Providers Care Export Agent Name Role Phone Juventino Bay MD Primary Care Provid er Reason for Visit * Reason Onset Date Comments Orders 06/21/2022 Callback Encounter Details Date Type Department Care Team (Late st Contact Info) Description 06/21/[address] [phone] Liam Castillo PA-C [address] [address] Orders (Callback/) Social History Tobacco [...] be reached at: Home number on file [phone] (home) Best Time: any Can we leave a detailed message on this number? YES Call taken on 06/21/2022 at 1:51 PM by Maira Boogie PIGEON LOADER documented in this encounter Plan of Treatment Not on file documented as of this encounter Visit Diagnoses Not on filedocumented in this encounter Additional Health Concerns Assessment Noted Time PHQ-9 Depression Total Score: 0 04/29/20 15 7:23 AM CDT documented as of this encounter Care Teams Export Agent Relationship Specialty Start Date End Date Juventino Bay MD [address] [place] [address] PCP - General Internal Medicine 06/09/17 documented as of this encounter
== END 2024-05-02 10:58 | disposition home or self-care (01) ==
LOC: CT 10:58
PROVIDERS: PCP Physician Assistant Medical; Visit Provider Physician Assistant Medical
DX: Z12.2 Encounter for screening for malignant neoplasm of respiratory organs (principal); Z87.891 Personal history of nicotine dependence
CPT/HCPCS: 71271

== ENCOUNTER 2025-01-21 09:34 | Outpatient (CLI) | payer MEDICARE, SELFPAY | END 2025-01-21 09:35 | disposition home or self-care (01) | LOC: NFLDREF 01-23 14:55 | PROVIDERS: PCP Physician Assistant Medical; Referring Provider Physician Assistant Medical; Visit Provider Physician Assistant Medical | DX: Z12.5 Encounter for screening for malignant neoplasm of prostate (principal) | CPT/HCPCS: G0103 ==

== ENCOUNTER 2025-05-19 10:17 | Outpatient (CLI) | payer MEDICARE, SELFPAY | END 2025-05-19 10:18 | disposition home or self-care (01) | LOC: NFLDREF 05-22 11:58 | PROVIDERS: PCP Physician Assistant Medical; Referring Provider Physician Assistant Medical; Visit Provider Physician Assistant Medical | DX: Z00.00 Encounter for general adult medical examination without abnormal findings (principal); E11.9 Type 2 diabetes mellitus without complications; I10 Essential (primary) hypertension; E78.5 Hyperlipidemia, unspecified | CPT/HCPCS: 80053; 80061; 82043; 82570; G0103 ==

== ENCOUNTER 2025-06-06 14:37 | Outpatient (CLI) | payer MEDICARE, SELFPAY ==
--- NOTE | 2025-06-06 15:00 | CRLHL7_ITS ---
For Patients: As a result of the Century Cures Act, medical imaging exams and procedure reports are released immediately into your electronic medical record. You may view this report before your referring provider. If you have questions, please contact your health care provider. Indication: F/U NODULE Technique: Noncontrast CT chest Please note that all CT scans at this facility use dose modulation, iterative reconstruction, and/or weight-based dosing when appropriate to reduce radiation dose to as low as reasonably achievable. Comparison: 05/02/2024 Findings: The visualized thyroid is unremarkable. Atherosclerotic changes including coronary artery calcifications. The gallbladder is absent. No adrenal nodule. Spleen is nonenlarged. No adenopathy. Resolution of the previously noted nodular density within the right lateral lung. 2 millimeter nodule incidentally noted in the left lower lobe, . There is no fracture. Bridging osteophyte formation is present. Impression: Resolution of previously noted nodule within the right lung. Please note that all CT scans at this facility use dose modulation, iterative reconstruction, and/or weight-based dosing when appropriate to reduce radiation dose to as low as reasonably achievable. Dictated by Abel Rees MD @ 06/06/2025 3:47:57 PM (Electronically Signed)
--- NOTE | 2025-06-06 15:30 | CRLHL7_ITS ---
For Patients: As a result of the Century Cures Act, medical imaging exams and procedure reports are released immediately into your electronic medical record. You may view this report before your referring provider. If you have questions, please contact your health care provider. INDICATION: Cognitive dysfunction TECHNIQUE: Noncontrast Sagittal T1,Axial FSE T2, Flair, DWI images submitted. No comparisons. FINDINGS: [id number] cerebral atrophy. The ventricles, sulci and gyri are of normal size, shape and contour for age and degree of atrophy. Midline structures are centrally located. No convincing evidence of suspicious intra- or extra-axial fluid collections. Mild patchy regions of increased T2 signal within the periventricular and subcortical white matter of both cerebral hemispheres. No regions of restricted diffusion. Mild opacification of the inferior right mastoid air cells likely representing presence of benign inflammatory fluid. IMPRESSION: 1. No radiographic evidence of acute intracranial abnormalities. 2. [id number] cerebral atrophy. 3. Mild supratentorial white matter changes that are non-specific, but statistically most likely related to chronic small vessel ischemic disease. Dictated by Abe Tai MD @ 06/06/2025 4:00:00 PM (Electronically Signed)
== END 2025-06-06 14:38 | disposition home or self-care (01) ==
PROVIDERS: PCP Physician Assistant Medical; Visit Provider Physician Assistant Medical
DX: R91.1 Solitary pulmonary nodule (principal); I25.10 Atherosclerotic heart disease of native coronary artery without angina pectoris; Z90.49 Acquired absence of other specified parts of digestive tract; M47.819 Spondylosis without myelopathy or radiculopathy, site unspecified; R41.89 Other symptoms and signs involving cognitive functions and awareness; G31.9 Degenerative disease of nervous system, unspecified; I67.82 Cerebral ischemia; H74.8X1 Other specified disorders of right middle ear and mastoid
CPT/HCPCS: 70551; 71250